=== PATIENT | female | born 1990 | race Caucasian/White ===

== ENCOUNTER 2017-04-12 16:27 | Emergency (ER) | payer MEDICAID ==
[~2017-04-12] VITALS: Ht 162.6 cm; Wt 90.5 kg
[~2017-04-12 16:27] MED LIST: VIST50CA PO
[2017-04-12 16:32] VITALS: BP 149/82; PULSE 115; RESP 22; TEMP 98.8; O2SAT 97
[2017-04-12 17:11] VITALS: BP 125/67; PULSE 107; RESP 20; O2SAT 95
[2017-04-12 17:15] VITALS: O2SAT 96
[2017-04-12] MEDS ORDERED: SODIUM CHLOR 0.9% 1000 ML INJ 1,000 ML IV ONE (17:30)
[2017-04-12] MEDS ORDERED: MORPHINE SULFATE 4 MG/ML INJ IV PUSH ONE (17:30)
[2017-04-12] MEDS ORDERED: SODIUM CHLORIDE 0.9% FLUSH 10 ML FLUSH IVF PRN (17:30)
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
[2017-04-12 18:00] VITALS: BP 118/69; PULSE 101; RESP 20; O2SAT 96
--- NOTE | 2017-04-12 18:00 | RADRPT ---
EXAM DATE/TIME: 04/12/2017 17:23 [facility] COMPARISON: CHEST SINGLE AP, October 15, 2015, 19:33. INDICATIONS : Short of breath. MEDICAL HISTORY : Diabetes mellitus type II. Hypertension Pulmonary embolism SURGICAL HISTORY : Tubal ligation. ENCOUNTER: Initial ACUITY: 1 day PAIN SCORE: 0/10 LOCATION: Bilateral chest FINDINGS: Single AP view of the chest. The lungs are clear. Cardiomediastinal silhouette within normal limits. No evidence of pleural effusion or pneumothorax. CONCLUSION: No acute cardiopulmonary disease identified. Darren Gar MD on April 12, 2017 at 17:58 Board Certified Radiologist. This report was verified electronically.
[2017-04-12 18:18] LABS: AUTOMATED NEUTROPHIL # 4.5 TH/MM3 (1.8-7.7); BASOPHIL % 0.7 % (0.0-2.0); EOSINOPHIL # 0.1 TH/MM3 (0-0.4); EOSINOPHIL % 1.4 % (0.0-4.0); HEMATOCRIT 33.5 % (35.0-46.0); HEMO FLAGS DIFF FINAL; LYMPH % 27.7 % (9.0-44.0); MEAN CELL VOLUME 87.1 FL (80.0-100.0); MEAN CORPUSCULAR HEMOGLOBIN 26.6 PG (27.0-34.0); MEAN CORPUSCULAR HGB CONC 30.5 % (32.0-36.0); MONO % 7.1 % (0.0-8.0); NEUT % 63.1 % (16.0-70.0); PLATELET COUNT 242 TH/MM3 (150-450); RED BLOOD COUNT 3.85 MIL/MM3 (4.00-5.30)
[2017-04-12 18:31] LABS: PROTHROMBIN TIME - PATIENT 10.7 SEC (9.8-11.6)
[2017-04-12 18:45] LABS: ALKALINE PHOSPHATASE 169 U/L (45-117); ALT (GPT) 73 U/L (10-53); ANION GAP 14 MEQ/L (5-15); AST (GOT) 164 U/L (15-37); BICARBONATE 23.4 MEQ/L (21.0-32.0); BLOOD UREA NITROGEN 2 MG/DL (7-18); CHLORIDE 102 MEQ/L (98-107); GLOMERULAR FILTRATION RATE 81 ML/MIN (>89); SODIUM (NA) 139 MEQ/L (136-145); TOTAL BILIRUBIN ADULT 0.7 MG/DL (0.2-1.0)
[2017-04-12 18:49] LABS: POTASSIUM 2.9 MEQ/L (3.5-5.1)
--- NOTE | 2017-04-12 18:51 | RADRPT ---
EXAM DATE/TIME: 04/12/2017 18:17 [facility] COMPARISON: No previous studies available for comparison. INDICATIONS : Left arm pain. MEDICAL HISTORY : Seizures. . Migraines. Head trauma. Numbness. Pulmonary embolism. Diabetes. PTSD. Depressio n. Anxiety. SURGICAL HISTORY : Tubal ligation. section. Multiple brain surgeries. ENCOUNTER: Initial ACUITY: 1 day PAIN SCORE: 2/10 LOCATION: Left arm. FINDINGS: There is spontaneous flow documented in the brachial, basilic, cephalic, axillary, and subclavian vei ns. The vessels are compressible and augmentation response is documented. No filling defects are se en. The flow is phasic with respiration. Direction of flow in the jugular vein is caudal. CONCLUSION: No venous thrombosis of the left upper extremity. Marques Cruz MD on April 12, 2017 at 18:49 Board Certified Radiologist. This report was verified electronically.
[2017-04-12] MEDS ORDERED: POTASSIUM CHLORIDE 20 MEQ CONTROLLED RELEASE TAB PO ONE (19:00)
[2017-04-12] MEDS ORDERED: IOHEXOL 350 MG/ML 10 ML VIAL (for RAD DIAG) IVCONTRAST ONE (19:18)
--- NOTE | 2017-04-12 19:26 | RADRPT ---
EXAM DATE/TIME: 04/12/2017 19:07 [facility] COMPARISON: CT BRAIN W/O CONTRAST, August 07, 2014, 5:44. INDICATIONS : Cephalgia. RADIATION DOSE: 56.35 CTDIvol (mGy) MEDICAL HISTORY : Closed head injury. SURGICAL HISTORY : Craniotomy. ENCOUNTER: Initial ACUITY: 1 day PAIN SCALE: 8/10 LOCATION: Left cranial TECHNIQUE: Multiple contiguous axial images were obtained of the head. Using automated exposure control and adj ustment of the mA and/or kV according to patient size, radiation dose was kept as low as reasonably a chievable to obtain optimal diagnostic quality images. DICOM format image data is available electro nically for review and comparison. FINDINGS: CEREBRUM: The ventricles are normal for age. No evidence of midline shift, mass lesion, hemorrhage or acute in farction. No extra-axial fluid collections are seen. Chronic posttraumatic encephalomalacia again no sunita of the left temporal, parietal and occipital lobes. This is unchanged. Patient has had previous l eft craniotomy. POSTERIOR FOSSA: The cerebellum and brainstem are intact. The 4th ventricle is midline. The cerebellopontine angle i s unremarkable. EXTRACRANIAL: The visualized portion of the orbits is intact. SKULL: No acute skull abnormality demonstrated. Large left craniotomy defect again noted. CONCLUSION: 1. No acute intracranial abnormality. 2. 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 3. Previous left craniotomy. Marques Cruz MD on April 12, 2017 at 19:23 Board Certified Radiologist. This report was verified electronically.
--- NOTE | 2017-04-12 19:31 | RADRPT ---
EXAM DATE/TIME: 04/12/2017 19:10 [facility] COMPARISON: CT PULMONARY ANGIOGRAM, October 15, 2015, 21:24. INDICATIONS : Left arm and chest pain. IV CONTRAST: 70 cc Omnipaque 350 (iohexol) IV RADIATION DOSE: 25.52 CTDIvol (mGy) MEDICAL HISTORY : Diabetes mellitus type 2. Pulmonary embolism. SURGICAL HISTORY : Tubal ligation. ENCOUNTER: Initial ACUITY: 1 day PAIN SCALE: 8/10 LOCATION: Left chest TECHNIQUE: Volumetric scanning of the chest was performed using a pulmonary embolism protocol MIP images were re constructed. Using automated exposure control and adjustment of the mA and/or kV according to patien t size, radiation dose was kept as low as reasonably achievable to obtain optimal diagnostic quality images. DICOM format image data is available electronically for review and comparison. Follow-up recommendations for detected pulmonary nodules are based at a minimum on nodule size and pa tient risk factors according to Fleischner Society Guidelines. FINDINGS: PULMONARY ARTERIES: No filling defects are seen in the pulmonary arteries through the segmental level. LUNGS: Trace atelectasis of the bases, especially the right. PLEURAE: There is no pleural thickening or pleural effusion. MEDIASTINUM: There is good visualization of the great vessels of the middle mediastinum. No evidence of mediastin al or hilar adenopathy/mass. Heart size normal. No perceptible coronary artery calcification. MUSCULOSKELETAL: Within normal limits for patient age. MISCELLANEOUS: Severe fatty infiltration of the liver. It is also probably enlarged. CONCLUSION: 1. No pulmonary embolus. 2. Mild bibasilar atelectasis. 3. Enlarged and severely fatty infiltrated liver. Marques Cruz MD on April 12, 2017 at 19:29 Board Certified Radiologist. This report was verified electronically.
[2017-04-12 19:38] VITALS: BP 127/66; PULSE 88; RESP 16; O2SAT 94
== END 2017-04-12 20:26 | disposition home or self-care (01) ==
LOC: NEPD 16:27
DX: R51 Headache (principal); E11.65 Type 2 diabetes mellitus with hyperglycemia; M79.602 Pain in left arm; E87.6 Hypokalemia; K76.0 Fatty (change of) liver, not elsewhere classified; Z86.711 Personal history of pulmonary embolism; Z72.0 Tobacco use
CPT/HCPCS: 70450; 71010; 71275; 80053; 84703; 85025; 85610; 85730; 93971; 96361; 96374; 99285; J2270; J7030; Q9967

== ENCOUNTER 2017-07-11 12:40 | Inpatient (IN) | payer MEDICAID ==
[2017-07-11] VITALS (16 sets, daily range): BP systolic 99–127; BP diastolic 57–69; PULSE 89–117; RESP 16–45; TEMP 98.6–100.4; O2SAT 91–100
[~2017-07-11] VITALS: Ht 162.6 cm; Wt 108.1 kg
[2017-07-11] MEDS ORDERED: IOHEXOL 350 MG/ML 10 ML VIAL (for RAD DIAG) IVCONTRAST ONE (12:41)
[2017-07-11] MEDS ORDERED: SODIUM CHLOR 0.9% 1000 ML INJ 1,000 ML IV ONE (13:02)
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
[2017-07-11] MEDS ORDERED: SODIUM CHLOR 0.9% 250 ML INJ 250 ML IV ONE ×4 (13:15→23:45)
[2017-07-11] MEDS ORDERED: SODIUM CHLORIDE 0.9% FLUSH 10 ML FLUSH IVF PRN (13:15)
[2017-07-11 13:46] LABS: AUTOMATED NEUTROPHIL # 12.6 TH/MM3 (1.8-7.7); BASOPHIL % 0.1 % (0.0-2.0); EOSINOPHIL % 0.2 % (0.0-4.0); LYMPH % 12.3 % (9.0-44.0); LYMPHOCYTE # 1.9 TH/MM3 (1.0-4.8); MEAN CELL VOLUME 90.4 FL (80.0-100.0); MEAN CORPUSCULAR HEMOGLOBIN 27.4 PG (27.0-34.0); MEAN CORPUSCULAR HGB CONC 30.4 % (32.0-36.0); MEAN PLATELET VOLUME 8.5 FL (7.0-11.0); MONO % 5.5 % (0.0-8.0); MONOCYTE # 0.9 TH/MM3 (0-0.9); NEUT % 81.9 % (16.0-70.0); PLATELET COUNT 405 TH/MM3 (150-450); RED BLOOD COUNT 1.59 MIL/MM3 (4.00-5.30); RED CELL DISTRIBUTION WIDTH 21.7 % (11.6-17.2); WHITE BLOOD COUNT 15.4 TH/MM3 (4.0-11.0)
--- NOTE | 2017-07-11 13:47 | RADRPT ---
EXAM DATE/TIME: 07/11/2017 13:35 [facility] COMPARISON: CHEST SINGLE AP, April 12, 2017, 17:23. INDICATIONS : Weakness for several days. MEDICAL HISTORY : None. SURGICAL HISTORY : None. ENCOUNTER: Initial ACUITY: 3 days PAIN SCORE: 0/10 LOCATION: Bilateral chest FINDINGS: A single view of the chest demonstrates the lungs to be symmetrically aerated without evidence of mas s, infiltrate or effusion. There is mild atelectasis in both lung bases. The cardiomediastinal contou rs are unremarkable. Osseous structures are intact. CONCLUSION: Mild atelectasis in the lung bases. Anthony Bolton MD on July 11, 2017 at 13:45 Board Certified Radiologist. This report was verified electronically.
[2017-07-11 13:50] LABS: HEMATOCRIT 14.4 % (35.0-46.0); HEMOGLOBIN 4.4 GM/DL (11.6-15.3)
[2017-07-11 13:55] LABS: INTERNATIONAL NORMALIZED RATIO 1.1 RATIO; PROTHROMBIN TIME - PATIENT 11.5 SEC (9.8-11.6)
[2017-07-11 14:11] LABS: ALBUMIN 2.6 GM/DL (3.4-5.0); ALKALINE PHOSPHATASE 192 U/L (45-117); ALT (GPT) 13 U/L (10-53); AST (GOT) 42 U/L (15-37); BICARBONATE 28.9 MEQ/L (21.0-32.0); BLOOD UREA NITROGEN 5 MG/DL (7-18); CALCIUM 7.9 MG/DL (8.5-10.1); CHLORIDE 93 MEQ/L (98-107); CREATININE 0.73 MG/DL (0.50-1.00); GLOMERULAR FILTRATION RATE 96 ML/MIN (>89); GLUCOSE,RANDOM 158 MG/DL (74-106); SODIUM (NA) 135 MEQ/L (136-145); TOTAL BILIRUBIN ADULT 4.9 MG/DL (0.2-1.0); TOTAL PROTEIN 7.9 GM/DL (6.4-8.2); TROPONIN I LESS THAN 0.02 NG/ML (0.02-0.05)
[2017-07-11] MEDS ORDERED: POTASSIUM CHLOR 20 MEQ PREMIX 100 ML IV ONE (14:30)
--- NOTE | 2017-07-11 15:03 | RADRPT ---
EXAM DATE/TIME: 07/11/2017 14:24 [facility] COMPARISON: CT BRAIN W/O CONTRAST, April 12, 2017, 19:07. INDICATIONS : Syncopal episode RADIATION DOSE: 56.37 CTDIvol (mGy) MEDICAL HISTORY : Seizures. Diabetes,pulmonary embolism SURGICAL HISTORY : Tubal ligation. Traumatic brain injury ENCOUNTER: Initial ACUITY: 1 day PAIN SCALE: 6/10 LOCATION: cranial TECHNIQUE: Multiple contiguous axial images were obtained of the head. Using automated exposure control and adj ustment of the mA and/or kV according to patient size, radiation dose was kept as low as reasonably a chievable to obtain optimal diagnostic quality images. DICOM format image data is available electro nically for review and comparison. FINDINGS: CEREBRUM: Appearance of the brain is stable when compared to the most recent study. There is focal encephalomal acia in the left temporal and occipital lobes which are unchanged. There are no findings characterist ic of an acute infarct, hemorrhage or mass. Large left frontal parietal craniotomy defect is again no sunita. CSF spaces are stable. POSTERIOR FOSSA: The cerebellum and brainstem are intact. The 4th ventricle is midline. The cerebellopontine angle i s unremarkable. EXTRACRANIAL: The visualized portion of the orbits is intact. SKULL: The calvaria is intact. No evidence of skull fracture. CONCLUSION: 1. Stable CT scan of the brain without evidence of acute infarct, hemorrhage, mass or edema. 2. Left temporal and occipital encephalomalacia; unchanged. 3. Left-sided craniotomy defect again noted. Ruddy Jose MD on July 11, 2017 at 14:55 Board Certified Radiologist. This report was verified electronically.
--- NOTE | 2017-07-11 15:14 | RADRPT ---
EXAM DATE/TIME: 07/11/2017 14:36 [place] COMPARISON: CT PULMONARY ANGIOGRAM, April 12, 2017, 19:10. INDICATIONS : Enlarge liver,mid abdomen pain IV CONTRAST: 70 cc Omnipaque 350 (iohexol) IV ORAL CONTRAST: No oral contrast ingested. RADIATION DOSE: 16.39 CTDIvol (mGy) MEDICAL HISTORY : Seizures. Diabetes,history of pulmonary embolism,traumatic brain injury SURGICAL HISTORY : Tubal ligation. ENCOUNTER: Initial ACUITY: 1 day PAIN SCALE: 5/10 LOCATION: Abdomen TECHNIQUE: Volumetric scanning of the abdomen and pelvis was performed. Using automated exposure control and ad justment of the mA and/or kV according to patient size, radiation dose was kept as low as reasonably achievable to obtain optimal diagnostic quality images. DICOM format image data is available electro nically for review and comparison. FINDINGS: LOWER LUNGS: Bibasilar linear and mild groundglass opacities. LIVER: Prominence diffusely decreased hepatic density with enlarged liver measuring up to 28 cm. No signific ant focal mass or intrahepatic ductal dilatation. Gallbladder is unremarkable by CT. SPLEEN: Spleen is slightly prominent measuring up to 14.5 cm in length. PANCREAS: Within normal limits. KIDNEYS: Normal in size and shape. There is no mass, stone or hydronephrosis. ADRENAL GLANDS: Within normal limits. VASCULAR: There is no aortic aneurysm. BOWEL/MESENTERY: The stomach, small bowel, and colon demonstrate no acute abnormality. Appendix is visualized and norm al in appearance. There is no free intraperitoneal air or fluid. ABDOMINAL WALL: Small fat containing periumbilical anterior abdominal wall hernia. RETROPERITONEUM: There is no lymphadenopathy. BLADDER: No wall thickening or mass. REPRODUCTIVE: Slightly prominent left ovary likely due to ovarian cysts. INGUINAL: There is no lymphadenopathy or hernia. MUSCULOSKELETAL: Within normal limits for patient age. CONCLUSION: 1. Prominent diffusely decreased hepatic density and hepatomegaly with liver measuring up to 28 cm. F indings are consistent with severe hepatic steatosis or medical liver disease. 2. Mild splenomegaly with spleen measuring up to 14.5 cm. 3. No acute abnormality in the abdomen or pelvis. 4. Normal appendix. 5. Small fat containing periumbilical anterior abdominal wall hernia. 6. Slightly prominent left ovary likely due to ovarian cysts. This is within normal limits for patien t's stated age. Ultrasound examination may be performed if there is significant clinical concern. Myron Mckeon MD on July 11, 2017 at 15:06 Board Certified Radiologist. This report was verified electronically.
[2017-07-11 15:45] LABS: MAGNESIUM 1.5 MG/DL (1.5-2.5); PHOSPHORUS 1.4 MG/DL (2.5-4.9)
[2017-07-11] MEDS ORDERED: NS + KCL 20 MEQ INJ 1,000 ML IV SCH (15:47)
[2017-07-11] MEDS ORDERED: MISCELLANEOUS NURSING INFORMATION XX SCH (16:00)
[2017-07-11] MEDS ORDERED: SODIUM CHLORIDE 0.9% FLUSH 10 ML FLUSH IV FLUSH PRN (16:00)
[2017-07-11] MEDS ORDERED: BISACODYL 10 MG SUPP RECTAL PRN (16:00)
[2017-07-11] MEDS ORDERED: RESP: ALBUTEROL 2.5 MG/IPRATROPIUM 0.5 MG NEB (PRN) INH (16:00)
[2017-07-11] MEDS ORDERED: SENNOSIDES 8.6 MG TAB PO PRN (16:00)
[2017-07-11] MEDS ORDERED: POTASSIUM CHLORIDE 25 MEQ EFFERVESCENT TAB PO ONE ×2 (16:00→23:45)
[2017-07-11] MEDS ORDERED: MAGNESIUM HYDROXIDE SUSP 30 ML CUP PO PRN (16:00)
[2017-07-11] MEDS ORDERED: CHLORHEXIDINE GLUCONATE 2 % 1 PACK (2 CLOTHS) TOP PRN (16:00)
[2017-07-11] MEDS ORDERED: LACTULOSE SYRUP 20 GM/30 ML CUP PO PRN (16:00)
[2017-07-11] MEDS ORDERED: FLUMAZENIL 0.5 MG/5 ML VIAL IV PUSH PRN (16:15)
[2017-07-11] MEDS ORDERED: LORazepam 2 MG/ML VIAL IV PUSH PRN ×4 (16:15→16:30)
[2017-07-11] MEDS ORDERED: LORazepam 1 MG TAB PO PRN (16:15)
[2017-07-11] MEDS ORDERED: cloNIDine HCL 0.1 MG TAB PO PRN (16:30)
[2017-07-11 16:50] LABS: BACTERIA, URINE RARE /hpf; BLOOD, URINE NEG (NEG); GLUCOSE,URINE NEG (NEG); KETONE, URINE NEG (NEG); NITRITE,URINE NEG (NEG); PH, URINE 6.5 (5.0-8.5); SQUAMOUS EPITHELIAL CELL URINE <1 /hpf (0-5); URINE COLOR YELLOW (YELLW/STRAW); URINE LEUKOCYTE ESTERASE MOD (NEG)
[2017-07-11] MEDS: ONDANSETRON HCL 4 MG/2 ML VIAL IV PUSH PRN ×2 (16:50→19:16)
[2017-07-11 16:51] LABS: BILIRUBIN, URINE NEG (NEG)
[2017-07-11] MEDS ORDERED: CALCIUM GLUCONATE INJ 2 GM in DEXTROSE 5% IN WATER 100ML INJ 100 ML IV ONE ×2 (17:00)
[2017-07-11] MEDS ORDERED: TRANEXAMIC ACID INJ 1,150 MG in SODIUM CHLORIDE 0.9% INJ 100 ML IV SCH (17:00)
[2017-07-11] MEDS ORDERED: PHYTONADIONE 5 MG/SWFI 5 ML ORAL SYR PO ONE (17:00)
[2017-07-11] MEDS ORDERED: HALOPERIDOL LACTATE 5 MG/ML AMP IM PRN (17:00)
--- NOTE | 2017-07-11 17:47 | HHI.HP ---
HPI Service Critical Care Medicine Primary Care Physician Unknown Admission Diagnosis Syncope, Hypovolemia, Severe Anemia, Liver disease. Diagnosis: Chief Complaint: Generalized weakness, syncope, and menstrual blood loss Travel History International Travel<30 Days: No Contact w/Intl Traveler <30 Da: No Traveled to Known Affected Are: No History of Present Illness History of Present Illness HPI 27-year-old female who presented to the ER with history of vagina bleeding from her menstrual cycle going on for about 2 weeks and progressive weakness and dizziness for the last 3 days. She had a syncopal episode while in the waiting area. She denied any abdominal pain. Patient was evaluated in the ER and was found to be severely anemic with hemoglobin of 4.4 and was tachycardic with heart rate in the 120s. She received fluid boluses and was ordered 2 units PRBCs in the ER which were initiated. CT abdomen pelvis done in the ER reveals an enlarged liver and spleen. Patient reportedly drinks at least half a bottle of vodka every day for many years. Her last drink was this morning. Patient also has a history of traumatic brain injury and has had a craniotomy before as well as a history of blood clot in her lungs previously. Patient was accepted for admission by critical care medicine service. I evaluated the patient while she was in the ER. At the time of my evaluation patient appeared to be resting in the ER stretcher and had an episode of nausea and vomiting however was otherwise not in any respiratory distress and denied any chest pain palpitations fevers or chills she did admit to having rectal bleeding with straining off and on for a while. She denied any melena or hematemesis. She denies any previous history of liver disease or bleeding issues. She has not seen a physician for at least 2 years. PFSH Past Medical History Asthma: No Anxiety: Yes Depression: Yes Cancer: No Cardiovascular Problems: No Chest Pain: Yes Cerebrovascular Accident: No Diabetes: Yes Diminished Hearing: No Endocrine: No Genitourinary: No Headaches: Yes Hepatitis: No Hiatal Hernia: No Immune Disorder: No Implanted Vascular Access Dvce: Yes (PICC LINE AT ONE TIME IN LEFT ARM) Musculoskeletal: No Neurologic: Yes (migraines) Psychiatric: Yes (ANXIETY; PANIC ATTACKS; DOES NOT LIKE TO BE ALONE SINCE THE VEHICLE TRAUMA) Reproductive: No Respiratory: Yes (hx pulmonary embolism) Integumentary: Yes Immunizations Current: Yes Migraines: Yes Seizures: Yes Thyroid Disease: No : 2 Para: 2 Tubal Ligation: Yes Past Surgical History Abdominal Surgery: No AICD: No Body Medical Devices: prosthetic bone flap Cardiac Surgery: No Section: Yes Ear Surgery: No Endocrine Surgery: No Eye Surgery: No Gynecologic Surgery: Yes (c sections x 2) Joint Replacement: No Neurologic Surgery: Yes (5 brain surgeries) Oral Surgery: No Pacemaker: No Thoracic Surgery: No Other Surgery: Yes (CRANIOTOMY 2008/ PLATE REMOVED 2013) Social History Alcohol Use: Yes (SOCIALLY) Tobacco Use: Yes (3/4PPD) Substance Use: No Allergies-Medications (Allergen,Severity, Reaction): Coded Allergies: No Known Allergies (Unverified , 04/12/17) Reported Meds & Prescriptions Reported Meds & Active Scripts Active No Active Prescriptions or Reported Medications Review of Systems Except as stated in HPI: all other systems reviewed are Neg Review of Systems ROS per HPI Physical Exam Vital Signs Vital Signs Date Time Temp Pulse Resp B/P (MAP) Pulse Ox O2 Delivery O2 Flow Rate FiO2 07/11/17 17:23 07/11/17 16:45 100.0 100 27 124/65 97 07/11/17 16:32 100.2 102 16 122/57 96 07/11/17 15:47 99.9 101 30 112/58 94 07/11/17 15:30 99.9 102 23 115/62 94 07/11/17 15:18 99.6 101 16 118/58 95 07/11/17 14:00 100 32 124/69 (87) 95 Nasal Cannula 2.00 07/11/17 13:15 106 26 117/59 (78) 92 Nasal Cannula 2.00 07/11/17 13:11 95 Nasal Cannula 3.00 07/11/17 13:04 117 20 07/11/17 12:41 99.2 116 20 127/66 (86) 100 Room Air Physical Exam Physical Exam Narrative GENERAL: Well-developed, morbidly obese, pale and jaundiced. SKIN: Patient is generally pale, positive scleral icterus and jaundice. HEAD: Atraumatic. Normocephalic. EYES: Pupils equal and round. No scleral icterus. No injection or drainage. ENT: No nasal bleeding or discharge. Mucous membranes pink and moist. NECK: Trachea midline. No JVD. CARDIOVASCULAR: Regular rate and rhythm. No murmur appreciated. RESPIRATORY: No accessory muscle use. Clear to auscultation. Breath sounds equal bilaterally. GASTROINTESTINAL: Abdomen soft, non-tender, nondistended. Liver and spleen palpable, nontender. GENITOURINARY: rectal and vaginal exam by ERP: ER physician found blood in the general guerra and on rectal exam did not notice any blood and stool was negative for occult blood MUSCULOSKELETAL: No obvious deformities. No clubbing. No cyanosis. No edema. NEUROLOGICAL: Awake alert oriented 3, grossly nonfocal Laboratory Laboratory Tests Test 07/11/17 13:07 07/11/17 13:37 07/11/17 16:03 White Blood Count 15.4 Red Blood Count 1.59 Hemoglobin 4.4 Hematocrit 14.4 Mean Corpuscular Volume 90.4 Mean Corpuscular Hemoglobin 27.4 Mean Corpuscular Hemoglobin Concent 30.4 Red Cell Distribution Width 21.7 Platelet Count 405 Mean Platelet Volume 8.5 Neutrophils (%) (Auto) 81.9 Lymphocytes (%) (Auto) 12.3 Monocytes (%) (Auto) 5.5 Eosinophils (%) (Auto) 0.2 Basophils (%) (Auto) 0.1 Neutrophils # (Auto) 12.6 Lymphocytes # (Auto) 1.9 Monocytes # (Auto) 0.9 Eosinophils # (Auto) 0.0 Basophils # (Auto) 0.0 CBC Comment DIFF FINAL Differential Comment Prothrombin Time 11.5 Prothromb Time International Ratio 1.1 Activated Partial Thromboplast Time 23.7 Blood Urea Nitrogen 5 Creatinine 0.73 Random Glucose 158 Total Protein 7.9 Albumin 2.6 Calcium Level 7.9 Alkaline Phosphatase 192 Aspartate Amino Transf (AST/SGOT) 42 Alanine Aminotransferase (ALT/SGPT) 13 Total Bilirubin 4.9 Sodium Level 135 Potassium Level 1.8 Chloride Level 93 Carbon Dioxide Level 28.9 Anion Gap 13 Estimat Glomerular Filtration Rate 96 Phosphorus Level 1.4 Magnesium Level 1.5 Troponin I LESS THAN 0.02 Acetaminophen Level LESS THAN 2.0 Ammonia 43 Human Chorionic Gonadotropin, Quant LESS THAN 1 Ethyl Alcohol Level 32 Urine Color YELLOW Urine Turbidity CLEAR Urine pH 6.5 Urine Specific [place] 1.015 Urine Protein TRACE Urine Glucose (UA) NEG Urine Ketones NEG Urine Occult Blood NEG Urine Nitrite NEG Urine Bilirubin NEG Urine Urobilinogen 2.0 Urine Leukocyte Esterase MOD Urine RBC 1 Urine WBC 5 Urine Squamous Epithelial Cells <1 Urine Bacteria RARE Microscopic Urinalysis Comment CULT NOT INDICATED Result Diagram: 07/11/17 1307 07/11/17 1307 Imaging Last Impressions Head CT 07/11/17 0000 Signed Impressions: Service Date/Time: Tuesday, July 11, 2017 14:24 - CONCLUSION: 1. Stable CT scan of the brain without evidence of acute infarct, hemorrhage, mass or edema. 2. Left temporal and occipital encephalomalacia; unchanged. 3. Left- sided craniotomy defect again noted. Ruddy Jose MD Chest X-Ray 07/11/17 0000 Signed Impressions: Service Date/Time: Tuesday, July 11, 2017 13:35 - CONCLUSION: Mild atelectasis in the lung bases. Anthony Bolton MD Abdomen/Pelvis CT 07/11/17 0000 Signed Impressions: Service Date/Time: Tuesday, July 11, 2017 14:36 - CONCLUSION: 1. Prominent diffusely decreased hepatic density and hepatomegaly with liver measuring up to 28 cm. Findings are consistent with severe hepatic steatosis or medical liver disease. 2. Mild splenomegaly with spleen measuring up to 14.5 cm. 3. No acute abnormality in the abdomen or pelvis. 4. Normal appendix. 5. Small fat containing periumbilical anterior abdominal wall hernia. 6. Slightly prominent left ovary likely due to ovarian cysts. This is within normal limits for patient's stated age. Ultrasound examination may be performed if there is significant clinical concern. MD Sudeep Perez VTE Risk Assessment Sudeep VTE Risk Assessment: No/Low Risk (score <= 1) VTE Pharm Contraindication: Hemorrhage Caprini Risk Assessment Model Point Value = 1 Point Value = 2 Point Value = 3 Point Value = 5 Age 41-60 Minor surgery BMI > 25 kg/m2 Swollen legs Varicose veins or History of unexplained or recurrent spontaneous Oral contraceptives or hormone replacement Sepsis (< 1 month) Serious lung disease, including pneumonia (< 1 month) Abnormal pulmonary function Acute myocardial infarction Congestive heart failure (< 1 month) History of inflammatory bowel disease Medical patient at bed rest Age 61-74 Arthroscopic surgery Major open surgery (> 45 min) Laparoscopic surgery (> 45 min) Malignancy Confined to bed (> 72 hours) Immobilizing plaster cast Central venous access Age >= 75 History of VTE Family history of VTE Factor V Leiden Prothrombin [id number] Lupus anticoagulant Anticardiolipin antibodies Elevated serum homocysteine Heparin-induced thrombocytopenia Other congenital or acquired thrombophilia Stroke (< 1 month) Elective arthroplasty Hip, pelvis, or leg fracture Acute spinal cord injury (< 1 month) Prophylaxis Regimen Total Risk Factor Score Risk Level Prophylaxis Regimen 0-1 Low Early ambulation 2 Moderate Order ONE of the following: *Sequential Compression Device (SCD) *Heparin 5000 units SQ BID 3-4 Higher Order ONE of the following medications: *Heparin 5000 units SQ TID *Enoxaparin/Lovenox 40 mg SQ daily (WT < 150 kg, CrCl > 30 mL/min) *Enoxaparin/Lovenox 30 mg SQ daily (WT < 150 kg, CrCl > 10-29 mL/min) *Enoxaparin/Lovenox 30 mg SQ BID (WT < 150 kg, CrCl > 30 mL/min) AND/OR *Sequential Compression Device (SCD) 5 or more Highest Order ONE of the following medications: *Heparin 5000 units SQ TID (Preferred with Epidurals) *Enoxaparin/Lovenox 40 mg SQ daily (WT < 150 kg, CrCl > 30 mL/min) *Enoxaparin/Lovenox 30 mg SQ daily (WT < 150 kg, CrCl > 10-29 mL/min) *Enoxaparin/Lovenox 30 mg SQ BID (WT < 150 kg, CrCl > 30 mL/min) AND *Sequential Compression Device (SCD) Assessment and Plan Assessment and Plan 27-year-old female with: Acute blood loss anemia Syncope Alcohol-induced liver disease Menorrhagia History of rectal bleeding Alcohol abuse Sinus tachycardia secondary to severe anemia Elevated LFTs probably secondary to alcoholic hepatitis Hypokalemia Hypophosphatemia Hypocalcemia Plan: Neuro: Follow neuro status. Librium 5 mg by mouth 3 times a day and Ativan when necessary as well as thiamine folic acid MVI by mouth for impending alcohol withdrawal. Follow CIWA protocol. Cardiovascular: IV hydration, being transfused PRBCs, watch for hypotension. Pulmonary: Supplemental O2, bronchodilators as needed. GI/liver: Nothing by mouth for now. If nausea controlled may initiate clear liquids. GI consulted for elevated LFTs and for further evaluation for need for colonoscopy in view of history of rectal bleeding. /renal: Strict intake output, monitor and replete electrolites, follow BUN/ creatinine. IV hydration. MEDICAL EDUCATION SPECIALIST consulted for menorrhagia. Heme: 3 units PRBCs to be transfused. Follow serial H&H. Vitamin K 5 mg by mouth now. Tranexamic acid 10 mg per KG IV 1 dose. Transfuse to keep hemoglobin above 7 g percent. MEDICAL EDUCATION SPECIALIST: Consulted MEDICAL EDUCATION SPECIALIST for menorrhagia. Endocrine: Watch for hyperglycemia, SSI for glycemic control if needed. Prophylaxis: PPI/SCDs. No subcutaneous heparin in view of severe acute blood loss anemia with risk of rebleeding. Condition critical Time spent on critical care excluding procedures 60 minutes Gage Odom MD Jul 11, 2017 17:47
[2017-07-11] MEDS ORDERED: POTASSIUM PHOSPHATE INJ 30 MMOL in SODIUM CHLOR 0.9% 250 ML INJ 250 ML IV ONE (18:00)
[2017-07-11] MEDS: POTASSIUM CHLOR 20 MEQ PREMIX 100 ML IV SCH ×2 (18:26→22:42)
[2017-07-11] MEDS: SODIUM CHLORIDE 0.9% FLUSH 10 ML FLUSH IV FLUSH SCH (20:45)
[2017-07-11] MEDS: DOCUSATE SODIUM 50 MG/SENNA 8.6 MG TAB PO SCH (20:45)
[2017-07-11] MEDS: FAMOTIDINE 20 MG/2 ML VIAL IV PUSH SCH (20:45)
[2017-07-11 22:59] LABS: HEMATOCRIT 21.3 % (35.0-46.0)
[2017-07-11 23:05] LABS: HEMOGLOBIN 6.9 GM/DL (11.6-15.3)
[2017-07-11 23:19] LABS: BICARBONATE 28.3 MEQ/L (21.0-32.0); CALCIUM 7.4 MG/DL (8.5-10.1); CREATININE 0.55 MG/DL (0.50-1.00)
[2017-07-11 23:25] LABS: INTERNATIONAL NORMALIZED RATIO 1.1 RATIO; PROTHROMBIN TIME - PATIENT 11.4 SEC (9.8-11.6)
[2017-07-11 23:32] LABS: CALCIUM-PROTEIN CORRECTED 7.5 MG/DL (8.5-10.1); TOTAL PROTEIN 6.9 GM/DL (6.4-8.2)
[2017-07-12] VITALS (14 sets, daily range): BP systolic 115–146; BP diastolic 72–95; PULSE 85–107; RESP 18–39; TEMP 98.1–100.6; O2SAT 89–99
--- NOTE | 2017-07-12 02:03 | PD.CONS ---
HPI Chief Complaint TEST BAKER Consult for Severe anemia secondary to Abnormal uterine Bleeding. Date Seen: Jul 12, 2017 Time Seen: 02:00 Travel History International Travel<30 Days: No Contact w/Intl Traveler<30Days: No Known Affected Area: No History of Present Illness HPI Pt is a 27 yo P2 female who presented to ER yesterday with c/o increasing fatigue for 2 weeks and dizziness for 3 days. pt had a syncopal episode in ER waiting area, and was noted to have a Hg of 4.4g /dl. She was noted to be tachycardic with HR in the 120s. Pt states that her periods are usually regular and she bleeds for 2-5 days without heavy flow. Pt has had tubal ligation. Pt does not remember last PAP. Past medical history is significant for pulmonary embolism She is a 1/2 PPD smoker, and has a h/o alcohol abuse admitting to a 1/2 bottle of Vodka daily for several years. She has a h/o traumatic brain injury s/p craniotomy Pt states that she has occasional melena stools, but no other source of bleeding. She denies easy bruising. History Past Medical History Narrative Medical Anxiety disorder h/o traumatic Brain injury Morbid Obesity H/O PULMONARY EMBOLISM Obstetric History Obstetric History C Sections x 2 s/p tubal ligation Past Surgical History Narrative Surgical C sections x 2 Craniotomy 2008, Plate removed 2013. Prosthetic bone flap TUBAL LIGATION Social History Alcohol Use: Yes Tobacco Use: Yes (3/4 PPD) Substance Abuse: No Allergies-Medications (Allergen,Severity, Reaction): Coded Allergies: No Known Allergies (Unverified , 04/12/17) Home Meds No Active Prescriptions or Reported Meds Review of Systems Except as stated in HPI: all other systems reviewed are Neg Physical Exam Exam Limitations: Altered Mental Status (Pt has been receiving intermittent Ativan to manage her withdrawal.) Vital Signs Date Time Temp Pulse Resp B/P (MAP) Pulse Ox O2 Delivery O2 Flow Rate FiO2 07/12/17 00:00 91 07/12/17 00:00 98.6 91 39 123/81 (95) 93 07/11/17 22:00 89 07/11/17 20:00 89 07/11/17 20:00 98.6 89 45 99/62 (74) 97 07/11/17 19:58 100 Nasal Cannula 4.00 12/27/17 19:00 97 Nasal Cannula 4.00 Humidified 07/11/17 18:46 97 Nasal Cannula 4.00 Humidified 07/11/17 18:00 92 07/11/17 17:35 99.5 96 24 121/59 91 07/11/17 17:23 07/11/17 16:45 100.0 100 27 124/65 97 07/11/17 16:32 100.2 102 16 122/57 96 07/11/17 16:00 100.4 101 28 121/59 (79) 91 07/11/17 15:47 99.9 101 30 112/58 94 07/11/17 15:30 99.9 102 23 115/62 94 07/11/17 15:18 99.6 101 16 118/58 95 07/11/17 14:00 100 32 124/69 (87) 95 Nasal Cannula 2.00 07/11/17 13:15 106 26 117/59 (78) 92 Nasal Cannula 2.00 07/11/17 13:11 95 Nasal Cannula 3.00 07/11/17 13:04 117 20 07/11/17 12:41 99.2 116 20 127/66 (86) 100 Room Air Narrative GENERAL: Well-nourished, well-developed patient. SKIN: Warm and dry. HEAD: Normocephalic and atraumatic. EYES: No scleral icterus. No injection or drainage. ENT: No nasal drainage noted. Mucous membranes pink. Airway patent. NECK: Supple, trachea midline. No JVD. CARDIOVASCULAR: Regular rate and rhythm without murmurs, gallops, or rubs. RESPIRATORY: Breath sounds equal bilaterally. No accessory muscle use. BREASTS: Bilateral exam showed no masses , no retractions, no nipple discharge. ABDOMEN/GI: Abdomen soft, non-tender, bowel sounds present, no rebound, no guarding obese abdomen with palpable liver No abdominal tenderness GENITOURINARY: External Genitalia: intact and normal in appearance BUS glands: [wnl] No vaginal bleeding noted. Vaginal exam deferred. EXTREMITIES: No cyanosis or edema. BACK: Nontender without obvious deformity. No CVA tenderness. NEUROLOGICAL: Awake and alert. Motor and sensory grossly within normal limits. Five out of 5 muscle strength in all muscle groups. Normal speech. Data Data Vital Signs Reviewed: Yes Orders Orders Electrocardiogram (07/11/17 13:02) Ed Urine Pregnancytest Poc (07/11/17 13:02) Complete Blood Count With Diff (07/11/17 13:02) Comprehensive Metabolic Panel (07/11/17 13:02) Troponin I (07/11/17 13:02) Act Partial Throm Time (Ptt) (07/11/17 13:02) Prothrombin Time / Inr (Pt) (07/11/17 13:02) Urinalysis - C+S If Indicated (07/11/17 13:02) Ecg Monitoring (07/11/17 13:02) Iv Access Insert/Monitor (07/11/17 13:02) Oximetry (07/11/17 13:02) Sodium Chloride 0.9% Flush (Ns Flush) (07/11/17 13:15) Sodium Chlor 0.9% 1000 Ml Inj (Ns 1000 M (07/11/17 13:02) Type And Screen (07/11/17 13:02) Beta Hcg (Quant/Titer) (07/11/17 13:08) Sodium Chlor 0.9% 250 Ml Inj (Ns 250 Ml (07/11/17 13:15) Ed Poc Ultrasound (07/11/17 ) Alcohol (Ethanol) (07/11/17 13:17) Ammonia (07/11/17 13:17) Red Blood Cells (Rbc) (07/11/17 13:26) Blood Product Administration (07/11/17 13:26) Sodium Chlor 0.9% 250 Ml Inj (Ns 250 Ml (07/11/17 13:30) Ct Brain W/O Iv Contrast(Rout) (07/11/17 ) Chest, Single Ap (07/11/17 ) Tylenol (Acetaminophen) (07/11/17 14:02) Potassium Chlor 20 Meq Premix (Kcl 20 Me (07/11/17 14:30) Magnesium (Mg) (07/11/17 14:23) Phosphorus (Po4) (07/11/17 14:23) Ct Abd/Pel W Iv Contrast(Rout) (07/11/17 ) Iohexol 350 Inj (Omnipaque 350 Inj) (07/11/17 12:41) Admit Order (Ed Use Only) (07/11/17 ) Potassium Chloride Eff (K-Lyte Cl Eff) (07/11/17 16:00) Potassium Chlor 20 Meq Premix (Kcl 20 Me (07/11/17 16:00) Admit To Inpatient (07/11/17 ) Code Status (07/11/17 15:47) Vital Signs (Adult) ANTELMO.Q1H (07/11/17 15:47) Activity Bed Rest (07/11/17 15:47) Elevate Head Of Bed (07/11/17 15:47) Bedside Glucose ANTELMO.BGM (07/11/17 15:47) Urinary Catheter Management ANTELMO.Q8H (07/11/17 16:00) Ns + Kcl 20 Meq Inj (Ns + Kcl 20 Meq Inj (07/11/17 15:47) Sodium Chloride 0.9% Flush (Ns Flush) (07/11/17 16:00) Sodium Chloride 0.9% Flush (Ns Flush) (07/11/17 21:00) Famotidine Inj (Pepcid Inj) (07/11/17 21:00) Ondansetron Inj (Zofran Inj) (07/11/17 16:00) Albuterol-Ipratropium Neb (Duoneb Neb) (07/11/17 16:00) Complete Blood Count With Diff (07/12/17 04:00) Comprehensive Metabolic Panel (07/12/17 04:00) Magnesium (Mg) (07/12/17 04:00) Phosphorus (Po4) (07/12/17 04:00) Hgb & Hct (07/12/17 00:00) Resp Oxygen [place] C [place] 1-4 L (07/11/17 ) Consult Gastroenterology (07/11/17 ) Scheduling Manager / Telemetry ANTELMO.Q8H (07/11/17 15:47) Scd Bilateral/Knee High ANTELMO.BID (07/11/17 15:47) ^ Initiate Protocol (07/11/17 15:47) Instruction (07/11/17 15:47) [facility] Nursing Information (07/11/17 16:00) Chlorhexidine 2% Cloth (Chlorhexidine 2% (07/12/17 04:00) Chlorhexidine 2% Cloth (Chlorhexidine 2% (07/11/17 16:00) Mrsa Pcr Surveillance (07/11/17 15:47) Docusate Sodium-Senna (Henrietta-Colace) (07/11/17 21:00) Magnesium Hydroxide Liq (Milk Of Magnesi (07/11/17 16:00) Sennosides (Senokot) (07/11/17 16:00) Bisacodyl Supp (Dulcolax Supp) (07/11/17 16:00) Lactulose Liq (Lactulose Liq) (07/11/17 16:00) Inpatient Certification (07/11/17 ) Consult Gynecology (07/11/17 ) (Hub Use Only)[facility] Cons/Ref (07/11/17 ) Tranexamic Acid Inj (Cyklokapron Inj) (07/11/17 17:00) Calcium Gluconate Inj (Calcium Gluconate (07/11/17 17:00) (Hub Use Only)[facility] Cons/Ref (07/11/17 ) Fibrinogen (07/11/17 18:00) Prothrombin Time / Inr (Pt) (07/11/17 18:00) Act Partial Throm Time (Ptt) (07/11/17 18:00) Lactic Acid (07/11/17 18:00) Basic Metabolic Panel (Bmp) (07/11/17 23:30) Neuro Checks Q4H (07/11/17 16:03) Alcohol Withdrawal Asmt-Ciwa Q4HX18 (07/11/17 16:03) ^ Seizure Precautions (07/11/17 16:03) Diet Npo (07/11/17 Dinner) Folic Acid (Folate) (07/12/17 09:00) Thiamine (Vit B1) (Vitamin B1) (07/12/17 09:00) Multivitamins-Minerals Therap (Theragran (07/12/17 09:00) Clonidine (Catapres) (07/11/17 16:30) Drug Screen, Random Urine (07/11/17 16:03) Flumazenil Inj (Romazicon Inj) (07/11/17 16:15) Lorazepam (Ativan) (07/11/17 16:15) Lorazepam Inj (Ativan Inj) (07/11/17 16:15) Lorazepam (Ativan) (07/11/17 16:15) Lorazepam Inj (Ativan Inj) (07/11/17 16:15) Lorazepam Inj (Ativan Inj) (07/11/17 16:30) Lorazepam Inj (Ativan Inj) (07/11/17 16:15) Haloperidol Inj (Haldol Inj) (07/11/17 17:00) Specimen To Be Collected PRN (07/11/17 16:03) Blood Product Administration .UPON TRANSFUSION (07/11/17 16:07) Instruction (07/11/17 16:07) Sodium Chlor 0.9% 250 Ml Inj (Ns 250 Ml (07/11/17 16:30) Phytonadione Liq (Mephyton Liq) (07/11/17 17:00) (Hub Use Only)Inp Phy Cons/Ref (07/11/17 ) Chlordiazepoxide (Librium) (07/11/17 18:00) Potassium Phosphate Inj (Potassium Phosp (07/11/17 18:00) Sleeve, Knee Sequential Marcus Pr (07/11/17 22:51) Protein Corrected Calcium(Pcc) (07/11/17 22:53) Potassium Chloride Eff (K-Lyte Cl Eff) (07/11/17 23:45) Red Blood Cells (Rbc) (07/11/17 23:40) Blood Product Administration .UPON TRANSFUSION (07/11/17 23:40) Sodium Chlor 0.9% 250 Ml Inj (Ns 250 Ml (07/11/17 23:45) Labs Laboratory Tests Test 07/11/17 13:07 07/11/17 13:37 07/11/17 16:03 07/11/17 17:55 White Blood Count 15.4 Red Blood Count 1.59 Hemoglobin 4.4 Hematocrit 14.4 Mean Corpuscular Volume 90.4 Mean Corpuscular Hemoglobin 27.4 Mean Corpuscular Hemoglobin Concent 30.4 Red Cell Distribution Width 21.7 Platelet Count 405 Mean Platelet Volume 8.5 Neutrophils (%) (Auto) 81.9 Lymphocytes (%) (Auto) 12.3 Monocytes (%) (Auto) 5.5 Eosinophils (%) (Auto) 0.2 Basophils (%) (Auto) 0.1 Neutrophils # (Auto) 12.6 Lymphocytes # (Auto) 1.9 Monocytes # (Auto) 0.9 Eosinophils # (Auto) 0.0 Basophils # (Auto) 0.0 CBC Comment DIFF FINAL Differential Comment Prothrombin Time 11.5 Prothromb Time International Ratio 1.1 Activated Partial Thromboplast Time 23.7 Blood Urea Nitrogen 5 Creatinine 0.73 Random Glucose 158 Total Protein 7.9 Albumin 2.6 Calcium Level 7.9 Alkaline Phosphatase 192 Aspartate Amino Transf (AST/SGOT) 42 Alanine Aminotransferase (ALT/SGPT) 13 Total Bilirubin 4.9 Sodium Level 135 Potassium Level 1.8 Chloride Level 93 Carbon Dioxide Level 28.9 Anion Gap 13 Estimat Glomerular Filtration Rate 96 Phosphorus Level 1.4 Magnesium Level 1.5 Troponin I LESS THAN 0.02 Acetaminophen Level LESS THAN 2.0 Ammonia 43 Human Chorionic Gonadotropin, Quant LESS THAN 1 Ethyl Alcohol Level 32 Urine Color YELLOW Urine Turbidity CLEAR Urine pH 6.5 Urine Specific [place] 1.015 Urine Protein TRACE Urine Glucose (UA) NEG Urine Ketones NEG Urine Occult Blood NEG Urine Nitrite NEG Urine Bilirubin NEG Urine Urobilinogen 2.0 Urine Leukocyte Esterase MOD Urine RBC 1 Urine WBC 5 Urine Squamous Epithelial Cells <1 Urine Bacteria RARE Microscopic Urinalysis Comment CULT NOT INDICATED Urine Opiates Screen NEG Urine Barbiturates Screen NEG Urine Amphetamines Screen NEG Urine Benzodiazepines Screen NEG Urine Cocaine Screen NEG Urine Cannabinoids Screen NEG Nasal Screen MRSA (PCR) MRSA NOT DETECTED Test 07/11/17 22:53 Hemoglobin 6.9 Hematocrit 21.3 Prothrombin Time 11.4 Prothromb Time International Ratio 1.1 Activated Partial Thromboplast Time 23.9 Fibrinogen 424 Blood Urea Nitrogen 6 Creatinine 0.55 Random Glucose 130 Total Protein 6.9 Calcium Level 7.4 Sodium Level 138 Potassium Level 2.4 Chloride Level 101 Carbon Dioxide Level 28.3 Anion Gap 9 Estimat Glomerular Filtration Rate 133 Lactic Acid Level 0.7 Protein Corrected Calcium 7.[address] [facility] Medical Record Reviewed: Yes Plan Pt is a 27yo P2 admitted through ER with symptomatic severe anemia with Hg of 4.4g/dL Pt had syncopal episode in ER. Pt states menses are normally wnl, but current menses has lasted 2 weeks. test is negative. She also admits to intermittent melena stools and has significant hepatomegaly, and GI has been consulted. Pt is receiving 4th unit PRBC. Hg after third unit was 6.9g/dL Pt has received Tranexamic Acid. There is currently NO vaginal bleeding. Pt has a h/o pulmonary embolism and would not be a candidate for Estrogen therapy such as OCPs. Will recommend complete TEST BAKER evaluation as outpatient including PAP screening as outpatient. May benefit from Mirena IUD if bleeding remains a problem residential. Will order pelvic ultrasound to exclude polyps/fibroids. Admitting diagnosis: Syncope, Hypovolemia, Severe Anemia, Liver disease. Condition: Serious Scripts No Active Prescriptions or Reported Meds Car Ramirez MD Jul 12, 2017 2:03 am
[2017-07-12] MEDS: CHLORHEXIDINE GLUCONATE 2 % 1 PACK (2 CLOTHS) TOP SCH (04:00)
[2017-07-12 04:45] LABS: AUTOMATED NEUTROPHIL # 11.9 TH/MM3 (1.8-7.7); BASOPHIL # 0.1 TH/MM3 (0-0.2); EOSINOPHIL # 0.1 TH/MM3 (0-0.4); EOSINOPHIL % 0.4 % (0.0-4.0); HEMATOCRIT 25.8 % (35.0-46.0); HEMOGLOBIN 8.4 GM/DL (11.6-15.3); LYMPH % 10.4 % (9.0-44.0); LYMPHOCYTE # 1.5 TH/MM3 (1.0-4.8); MEAN CELL VOLUME 88.6 FL (80.0-100.0); MEAN CORPUSCULAR HEMOGLOBIN 28.8 PG (27.0-34.0); MEAN CORPUSCULAR HGB CONC 32.5 % (32.0-36.0); MEAN PLATELET VOLUME 8.2 FL (7.0-11.0); MONO % 5.1 % (0.0-8.0); MONOCYTE # 0.7 TH/MM3 (0-0.9); NEUT % 83.1 % (16.0-70.0); PLATELET COUNT 311 TH/MM3 (150-450); RED BLOOD COUNT 2.92 MIL/MM3 (4.00-5.30); RED CELL DISTRIBUTION WIDTH 16.6 % (11.6-17.2); WHITE BLOOD COUNT 14.3 TH/MM3 (4.0-11.0)
[2017-07-12 05:16] LABS: ALBUMIN 2.3 GM/DL (3.4-5.0); BICARBONATE 26.9 MEQ/L (21.0-32.0); CALCIUM 7.3 MG/DL (8.5-10.1); CREATININE 0.65 MG/DL (0.50-1.00); MAGNESIUM 1.5 MG/DL (1.5-2.5); PHOSPHORUS 2.6 MG/DL (2.5-4.9); TOTAL PROTEIN 7.1 GM/DL (6.4-8.2)
[2017-07-12 05:26] LABS: CALCIUM-PROTEIN CORRECTED 7.3 MG/DL (8.5-10.1)
[2017-07-12] MEDS ORDERED: ICU - MAGNESIUM OXIDE 400 MG TAB PO PRN (07:45)
[2017-07-12] MEDS ORDERED: ICU - POTASSIUM CHLORIDE/AQUEOUS SOLN 40 MEQ/100 ML IVPB IV PRN (07:45)
[2017-07-12] MEDS ORDERED: ICU - D/C ICU ELECTROLYTE ORDERS PRN (07:45)
[2017-07-12] MEDS ORDERED: ICU - MAGNESIUM SULFATE 2 GM/NS 100 ML IV PRN ×2 (07:45)
[2017-07-12] MEDS ORDERED: ICU - MAGNESIUM SULFATE 4 GM/NS 100 ML IV PRN ×2 (07:45)
[2017-07-12] MEDS ORDERED: ICU - POTASSIUM PHOSPHATE 30 MMOL/NS 250 ML IV PRN ×2 (07:45)
[2017-07-12] MEDS ORDERED: POTASSIUM CHLORIDE 25 MEQ EFFERVESCENT TAB PO PRN (07:45)
[2017-07-12] MEDS ORDERED: ICU - SODIUM PHOSPHATE 30 MMOL/NS 250 ML IV PRN ×2 (07:45)
[2017-07-12] MEDS ORDERED: ICU - CALL ORDERING PHYSICIAN PRN (07:45)
[2017-07-12] MEDS ORDERED: ICU - POTASSIUM PHOSPHATE MONOBASIC 500 MG TAB PO PRN (07:45)
--- NOTE | 2017-07-12 08:48 | HHI.CCPN ---
Subjective Remarks/Hospital Course Hospital Course: 27-year-old female who presented to the ER with history of vagina bleeding from her menstrual cycle going on for about 2 weeks and progressive weakness and dizziness for the last 3 days. She had a syncopal episode while in the waiting area. She denied any abdominal pain. Patient was evaluated in the ER and was found to be severely anemic with hemoglobin of 4.4 and was tachycardic with heart rate in the 120s. She received fluid boluses and was ordered 2 units PRBCs in the ER which were initiated. CT abdomen pelvis done in the ER reveals an enlarged liver and spleen. Patient reportedly drinks at least half a bottle of vodka every day for many years. Her last drink was this morning. Patient also has a history of traumatic brain injury and has had a craniotomy before as well as a history of blood clot in her lungs previously. Patient was accepted for admission by critical care medicine service. I evaluated the patient while she was in the ER. At the time of my evaluation patient appeared to be resting in the ER stretcher and had an episode of nausea and vomiting however was otherwise not in any respiratory distress and denied any chest pain palpitations fevers or chills she did admit to having rectal bleeding with straining off and on for a while. She denied any melena or hematemesis. She denies any previous history of liver disease or bleeding issues. She has not seen a physician for at least 2 years. Subjective: 07/12: denies abdominal pain or additional bleeding. hgb stable this AM. on 6L o2 by simple mask, but denies SOB or chest pain. ROS negative. Objective Vital Signs Date Time Temp Pulse Resp B/P (MAP) Pulse Ox O2 Delivery O2 Flow Rate FiO2 07/12/17 06:00 94 07/12/17 04:00 98.8 29 137/73 (94) 95 07/12/17 02:13 Simple Mask 6.00 Intake and Output 07/12/17 07/12/17 07/13/17 08:00 16:00 00:00 Intake Total 2320 ml Output Total 800 ml Balance 1520 ml Result Diagram: 07/12/17 0400 07/12/17 0400 Imaging Last Impressions Head CT 07/11/17 0000 Signed Impressions: Service Date/Time: Tuesday, July 11, 2017 14:24 - CONCLUSION: 1. Stable CT scan of the brain without evidence of acute infarct, hemorrhage, mass or edema. 2. Left temporal and occipital encephalomalacia; unchanged. 3. Left- sided craniotomy defect again noted. Ruddy Jose MD Chest X-Ray 07/11/17 0000 Signed Impressions: Service Date/Time: Tuesday, July 11, 2017 13:35 - CONCLUSION: Mild atelectasis in the lung bases. Anthony Bolton MD Abdomen/Pelvis CT 07/11/17 0000 Signed Impressions: Service Date/Time: Tuesday, July 11, 2017 14:36 - CONCLUSION: 1. Prominent diffusely decreased hepatic density and hepatomegaly with liver measuring up to 28 cm. Findings are consistent with severe hepatic steatosis or medical liver disease. 2. Mild splenomegaly with spleen measuring up to 14.5 cm. 3. No acute abnormality in the abdomen or pelvis. 4. Normal appendix. 5. Small fat containing periumbilical anterior abdominal wall hernia. 6. Slightly prominent left ovary likely due to ovarian cysts. This is within normal limits for patient's stated age. Ultrasound examination may be performed if there is significant clinical concern. Myron Mckeon MD Objective Remarks GENERAL: morbidly obese, pale and jaundiced. SKIN: Patient is generally pale, positive scleral icterus and jaundice. HEAD: Atraumatic. Normocephalic. EYES: Pupils equal and round. No scleral icterus. No injection or drainage. ENT: No nasal bleeding or discharge. Mucous membranes pink and moist. NECK: Trachea midline. No JVD. CARDIOVASCULAR: Regular rate and rhythm. sinus by tele. RESPIRATORY: No accessory muscle use. Breath sounds equal bilaterally. on 6L facemask. GASTROINTESTINAL: Abdomen soft, non-tender, nondistended. Liver and spleen palpable, nontender. MUSCULOSKELETAL: No obvious deformities. No clubbing. No cyanosis. No edema. NEUROLOGICAL: Awake alert oriented 3, grossly nonfocal A/P Assessment and Plan 27yF with vaginal bleeding and symptomatic anemia. improving. liver failure is likely chronic and likely secondary to etoh or BAILEY cirrhosis. if she remains stable today, could transfer out of ICU. 27-year-old female with: Acute blood loss anemia Syncope secondary to anemia Alcohol-induced liver disease Menorrhagia History of rectal bleeding Alcohol abuse Sinus tachycardia secondary to severe anemia Elevated LFTs probably secondary to alcoholic hepatitis Hypokalemia Hypophosphatemia Hypocalcemia Plan: Neuro: Follow neuro status. Librium 5 mg by mouth 3 times a day and Ativan when necessary as well as thiamine folic acid MVI by mouth for impending alcohol withdrawal. Follow CIWA protocol. Cardiovascular: saline lock ivf. Pulmonary: Supplemental O2, bronchodilators as needed. PT consult GI/liver: advance diet to clears. GI consulted for elevated LFTs and for further evaluation for need for colonoscopy in view of history of rectal bleeding. /renal: Strict intake output, monitor and replete electrolites, follow BUN/ creatinine. [employer]IN CLE[employer]ER consulted for menorrhagia. Heme: s/p 4 units prbc 07/11. hgb stable. continue to trend. Transfuse to keep hemoglobin above 7 BASIN CLEANER: Consulted BASIN CLEANER for menorrhagia. Endocrine: Watch for hyperglycemia, SSI for glycemic control if needed. Prophylaxis: pepcid/SCDs. No subcutaneous heparin in view of severe acute blood loss anemia with risk of rebleeding. Aureliano Timmons MD Jul 12, 2017 08:48
[2017-07-12] MEDS: ONDANSETRON HCL 4 MG/2 ML VIAL IV PUSH PRN (08:49)
[2017-07-12] MEDS: FAMOTIDINE 20 MG/2 ML VIAL IV PUSH SCH ×2 (08:50→20:20)
[2017-07-12] MEDS: FOLIC ACID 1 MG TAB PO SCH (08:54)
[2017-07-12] MEDS: MULTIVITAMINS/MINERALS THERAPEUTIC TAB PO SCH (08:54)
[2017-07-12] MEDS: SODIUM CHLORIDE 0.9% FLUSH 10 ML FLUSH IV FLUSH SCH ×2 (08:54→20:20)
[2017-07-12] MEDS: THIAMINE HCL 100 MG TAB PO SCH (08:54)
[2017-07-12] MEDS: DOCUSATE SODIUM 50 MG/SENNA 8.6 MG TAB PO SCH ×2 (08:59→20:19)
[2017-07-12] MEDS ORDERED: CALCIUM GLUCONATE INJ 3 GM in SODIUM CHLORIDE 0.9% INJ 100 ML IV ONE (10:00)
[2017-07-12] MEDS: ICU - POTASSIUM CHLORIDE/AQUEOUS SOLN 20 MEQ/100 ML IVPB IV PRN ×4 (10:12→16:45)
--- NOTE | 2017-07-12 10:34 | PD.CONS ---
HPI History of Present Illness This is a 27 year old female with hx heavy alcohol consumption, TBI s/p craniotomy and plate removal, who presented with severe anemia, dizziness, jaundice. She said for the last few weeks she has "not been feeling well" and "I'm an alcoholic." She has had a heavier and longer than usual menstrual period. She admits to seeing bright red blood on wipe in the last week after BM but denies profuse rectal bleeding, n/v, or melanotic stool. She c/o right side abd pain and noticed her urine turned dark a few days ago. Denies any knowledge of hepatitis or liver problems. Drinks 1/2 gallon vodka daily, "for a long time." Never had EGD or colonoscopy. (Pili Tompkins) PFSH Past Medical History TBI ETOH abuse Past Surgical History craniotomy cranial plate removal (Pili Tompkins) Coded Allergies: No Known Allergies (Unverified , 04/12/17) Family History noncontributory Social History drinks 1/2 gallon vodka daily 1ppd denies illicit drugs (Pili Tompkins) Review of Systems Constitutional: DENIES: Fever Endocrine: DENIES: Polydipsia Eyes: DENIES: Blurred vision Ears, nose, mouth, throat: DENIES: Hearing loss Respiratory: COMPLAINS OF: Cough Cardiovascular: DENIES: Chest pain Gastrointestinal: COMPLAINS OF: Abdominal pain, Bloody stools, DENIES: Black stools, Constipation, Diarrhea, Nausea, Vomiting, Hematemesis Genitourinary: DENIES: Hematuria Musculoskeletal: DENIES: Joint Swelling Integumentary: COMPLAINS OF: Jaundice Hematologic/lymphatic: DENIES: Lymphadenopathy Neurologic: DENIES: Abnormal gait Psychiatric: DENIES: Confusion (Pili Tompkins) GI Exam Vitals I&O Vital Signs Date Time Temp Pulse Resp B/P (MAP) Pulse Ox O2 Delivery O2 Flow Rate FiO2 07/12/17 06:00 94 07/12/17 04:00 90 07/12/17 04:00 98.8 92 29 137/73 (94) 95 07/12/17 02:13 96 Simple Mask 6.00 07/12/17 02:00 97 07/12/17 00:00 91 07/12/17 00:00 98.6 91 39 123/81 (95) 93 07/11/17 22:00 89 07/11/17 20:00 89 07/11/17 20:00 98.6 89 45 99/62 (74) 97 07/11/17 19:58 100 Nasal Cannula 4.00 07/11/17 19:00 97 Nasal Cannula 4.00 Humidified 07/11/17 18:46 97 Nasal Cannula 4.00 Humidified 07/11/17 18:00 92 07/11/17 17:35 99.5 96 24 121/59 91 07/11/17 17:23 07/11/17 16:45 100.0 100 27 124/65 97 07/11/17 16:32 100.2 102 16 122/57 96 07/11/17 16:00 100.4 101 28 121/59 (79) 91 07/11/17 15:47 99.9 101 30 112/58 94 07/11/17 15:30 99.9 102 23 115/62 94 07/11/17 15:18 99.6 101 16 118/58 95 07/11/17 14:00 100 32 124/69 (87) 95 Nasal Cannula 2.00 07/11/17 13:15 106 26 117/59 (78) 92 Nasal Cannula 2.00 07/11/17 13:11 95 Nasal Cannula 3.00 07/11/17 13:04 117 20 07/11/17 12:41 99.2 116 20 127/66 (86) 100 Room Air I/O 07/11/17 07/11/17 07/11/17 07/12/17 07/12/17 07/12/17 07:00 15:00 23:00 07:00 15:00 23:00 Intake Total 1702 ml 2450 ml 355 ml Output Total 800 ml Balance 1702 ml 1650 ml 355 ml Intake Oral 240 ml IV Total 432 ml 1165 ml 355 ml Packed Cells 1200 ml 1015 ml Blood Product IV Normal Saline Flush 70 ml 30 ml Output Urine Total 800 ml # Bowel Movements 5 Imaging Last Impressions Head CT 07/11/17 0000 Signed Impressions: Service Date/Time: Tuesday, July 11, 2017 14:24 - CONCLUSION: 1. Stable CT scan of the brain without evidence of acute infarct, hemorrhage, mass or edema. 2. Left temporal and occipital encephalomalacia; unchanged. 3. Left- sided craniotomy defect again noted. Ruddy Jose MD Chest X-Ray 07/11/17 0000 Signed Impressions: Service Date/Time: Tuesday, July 11, 2017 13:35 - CONCLUSION: Mild atelectasis in the lung bases. Anthony Bolton MD Abdomen/Pelvis CT 07/11/17 0000 Signed Impressions: Service Date/Time: Tuesday, July 11, 2017 14:36 - CONCLUSION: 1. Prominent diffusely decreased hepatic density and hepatomegaly with liver measuring up to 28 cm. Findings are consistent with severe hepatic steatosis or medical liver disease. 2. Mild splenomegaly with spleen measuring up to 14.5 cm. 3. No acute abnormality in the abdomen or pelvis. 4. Normal appendix. 5. Small fat containing periumbilical anterior abdominal wall hernia. 6. Slightly prominent left ovary likely due to ovarian cysts. This is within normal limits for patient's stated age. Ultrasound examination may be performed if there is significant clinical concern. Myron Mckeon MD Laboratory Test 07/11/17 13:07 07/11/17 13:37 07/11/17 16:03 07/11/17 17:55 White Blood Count 15.4 TH/MM3 Red Blood Count 1.59 MIL/MM3 Hemoglobin 4.4 GM/DL Hematocrit 14.4 % Mean Corpuscular Volume 90.4 FL Mean Corpuscular Hemoglobin 27.4 PG Mean Corpuscular Hemoglobin Concent 30.4 % Red Cell Distribution Width 21.7 % Platelet Count 405 TH/MM3 Mean Platelet Volume 8.5 FL Neutrophils (%) (Auto) 81.9 % Lymphocytes (%) (Auto) 12.3 % Monocytes (%) (Auto) 5.5 % Eosinophils (%) (Auto) 0.2 % Basophils (%) (Auto) 0.1 % Neutrophils # (Auto) 12.6 TH/MM3 Lymphocytes # (Auto) 1.9 TH/MM3 Monocytes # (Auto) 0.9 TH/MM3 Eosinophils # (Auto) 0.0 TH/MM3 Basophils # (Auto) 0.0 TH/MM3 CBC Comment DIFF FINAL Differential Comment Prothrombin Time 11.5 SEC Prothromb Time International Ratio 1.1 RATIO Activated Partial Thromboplast Time 23.7 SEC Blood Urea Nitrogen 5 MG/DL Creatinine 0.73 MG/DL Random Glucose 158 MG/DL Total Protein 7.9 GM/DL Albumin 2.6 GM/DL Calcium Level 7.9 MG/DL Alkaline Phosphatase 192 U/L Aspartate Amino Transf (AST/SGOT) 42 U/L Alanine Aminotransferase (ALT/SGPT) 13 U/L Total Bilirubin 4.9 MG/DL Sodium Level 135 MEQ/L Potassium Level 1.8 MEQ/L Chloride Level 93 MEQ/L Carbon Dioxide Level 28.9 MEQ/L Anion Gap 13 MEQ/L Estimat Glomerular Filtration Rate 96 ML/MIN Phosphorus Level 1.4 MG/DL Magnesium Level 1.5 MG/DL Troponin I LESS THAN 0.02 NG/ML Acetaminophen Level LESS THAN 2.0 MCG/ML Ammonia 43 MCMOL/L Human Chorionic Gonadotropin, Quant LESS THAN 1 MIU/ML Ethyl Alcohol Level 32 MG/DL Urine Color YELLOW Urine Turbidity CLEAR Urine pH 6.5 Urine Specific [place] 1.015 Urine Protein TRACE mg/dL Urine Glucose (UA) NEG mg/dL Urine Ketones NEG mg/dL Urine Occult Blood NEG Urine Nitrite NEG Urine Bilirubin NEG Urine Urobilinogen 2.0 MG/DL Urine Leukocyte Esterase MOD Urine RBC 1 /hpf Urine WBC 5 /hpf Urine Squamous Epithelial Cells <1 /hpf Urine Bacteria RARE /hpf Microscopic Urinalysis Comment CULT NOT INDICATED Urine Opiates Screen NEG Urine Barbiturates Screen NEG Urine Amphetamines Screen NEG Urine Benzodiazepines Screen NEG Urine Cocaine Screen NEG Urine Cannabinoids Screen NEG Nasal Screen MRSA (PCR) MRSA NOT DETECTED Test 07/11/17 22:53 07/12/17 04:00 Hemoglobin 6.9 GM/DL 8.4 GM/DL Hematocrit 21.3 % 25.8 % Prothrombin Time 11.4 SEC Prothromb Time International Ratio 1.1 RATIO Activated Partial Thromboplast Time 23.9 SEC Fibrinogen 424 mg/dL Blood Urea Nitrogen 6 MG/DL 7 MG/DL Creatinine 0.55 MG/DL 0.65 MG/DL Random Glucose 130 MG/DL 127 MG/DL Total Protein 6.9 GM/DL 7.1 GM/DL Calcium Level 7.4 MG/DL 7.3 MG/DL Sodium Level 138 MEQ/L 139 MEQ/L Potassium Level 2.4 MEQ/L 2.8 MEQ/L Chloride Level 101 MEQ/L 102 MEQ/L Carbon Dioxide Level 28.3 MEQ/L 26.9 MEQ/L Anion Gap 9 MEQ/L 10 MEQ/L Estimat Glomerular Filtration Rate 133 ML/MIN 109 ML/MIN Lactic Acid Level 0.7 mmol/L Protein Corrected Calcium 7.5 MG/DL 7.3 MG/DL White Blood Count 14.3 TH/MM3 Red Blood Count 2.92 MIL/MM3 Mean Corpuscular Volume 88.6 FL Mean Corpuscular Hemoglobin 28.8 PG Mean Corpuscular Hemoglobin Concent 32.5 % Red Cell Distribution Width 16.6 % Platelet Count 311 TH/MM3 Mean Platelet Volume 8.2 FL Neutrophils (%) (Auto) 83.1 % Lymphocytes (%) (Auto) 10.4 % Monocytes (%) (Auto) 5.1 % Eosinophils (%) (Auto) 0.4 % Basophils (%) (Auto) 1.0 % Neutrophils # (Auto) 11.9 TH/MM3 Lymphocytes # (Auto) 1.5 TH/MM3 Monocytes # (Auto) 0.7 TH/MM3 Eosinophils # (Auto) 0.1 TH/MM3 Basophils # (Auto) 0.1 TH/MM3 CBC Comment DIFF FINAL Differential Comment Albumin 2.3 GM/DL Phosphorus Level 2.6 MG/DL Magnesium Level 1.5 MG/DL Alkaline Phosphatase 167 U/L Aspartate Amino Transf (AST/SGOT) 54 U/L Alanine Aminotransferase (ALT/SGPT) 11 U/L Total Bilirubin 8.0 MG/DL Physical Examination HEENT: PERRL; normocephalic; atraumatic; +icterus CHEST: CTA, coughing CARDIAC: Rrr ABDOMEN: Soft, obese, nontender; bowel sounds are present in all four quadrants. EXTREMITIES: No clubbing, cyanosis, or edema. SKIN: Normal; no rash; + mildjaundice. [employer]: No focal deficits; alert and oriented times three. (Pili Tompkins) Assessment and Plan Plan ASSESSMENT - anemia - hgb 4.4 on admission, up to 8.4 after 4x PRBC. normocytic. some BRBPR nothing profuse. no active bleeding at this time - BRBPR - recent hx blood on wipe after BM. - elevated LFTs, jaundice, abnormal imaging - long standing heavy ETOH consumption, likely etoh hepatitis, could have cirrhosis. DF <32. CT showed hepatosplenomegaly, fatty liver vs hepatocellular dz. no significant coagulopathy at this time. low albumin. will get liver w/u hepatitis, autoimmune cause PLAN - EGD/colonoscopy in am - obtain consent - Clear liquids today - NPO after midnight - mg citrate prep - liver w/u - etoh cessation - monitor labs - further recs to follow This pt seen by myself and DR Clark and this note is written on his behalf (Pili Tompkins) Physician Comments Seen and examined, plan as above. EGD and Colonoscopy in AM Further recommendations to follow, pending above findings. (Shay Clark MD) Pili Tompkins Jul 12, 2017 10:34 Shay Clark MD Jul 12, 2017 15:01
[2017-07-12 12:24] LABS: HEMATOCRIT 25.6 % (35.0-46.0); HEMOGLOBIN 8.2 GM/DL (11.6-15.3)
--- NOTE | 2017-07-12 12:50 | RADRPT ---
EXAM DATE/TIME: 07/12/2017 09:52 [facility] COMPARISON: No previous studies available for comparison. INDICATIONS : Pelvic bleeding. MEDICAL HISTORY : Migraines. Seizures. Head trauma. Left sided numbness. Chest pain. Traumatic brain injury. Pulmonary embolism. Dyspnea. Diabetes. Panic attacks. Anxiety. PTSD. SURGICAL HISTORY : Tubal ligation. section. Brain surgeries x5. Craniotomy. ENCOUNTER: Initial ACUITY: 2 weeks PAIN SCORE: 0/10 LOCATION: Bilateral pelvis MEASUREMENTS: UTERUS: 10.2 x 5.0 x 4.3 cm ENDOMETRIAL STRIPE: 8 mm RIGHT OVARY: 3.4 x 3.1 x 2.0 cm LEFT OVARY: 3.8 x 3.7 x 2.7 cm FINDINGS: UTERUS: Significant thickening is identified in the endometrium the above measurement of the endometrial stri pe was performed just above the uterus. The endometrium in the fundus and body of the uterus is signi ficantly thicker. There is massive myometrial mass. RIGHT OVARY: Ovary contains no mass or significant cystic lesion. LEFT OVARY: Ovary contains no mass or significant cystic lesion. MISCELLANEOUS: No free fluid. CONCLUSION: 1. Significant endometrial thickening. 2. No other significant abnormality. Ruddy Jose MD on July 12, 2017 at 12:46 Board Certified Radiologist. This report was verified electronically.
[2017-07-12] MEDS ORDERED: MAGNESIUM CITRATE SOLN 300 ML BTL PO ONE ×2 (16:00→18:00)
[2017-07-12] MEDS: LORazepam 2 MG TAB PO PRN (20:19)
[2017-07-12 21:35] LABS: HEMATOCRIT 25.4 % (35.0-46.0); HEMOGLOBIN 8.2 GM/DL (11.6-15.3)
--- NOTE | 2017-07-12 23:25 | EKG ---
Date Performed: 07/11/2017 Time Performed: 13:09:28 PTAGE: 27 years EKG: SINUS TACHYCARDIA MODERATE INTRAVENTRICULAR CONDUCTION DELAY NONSPECIFIC ST & T-WAVE ABNORM ALITY ABNORMAL RHYTHM ECG INTERPRETATION BASED ON A DEFAULT AGE OF 40 YEARS NO PREVIOUS TRACING DOCTOR: Michael Bennett Interpretating Date/Time 07/12/2017 23:24:02
[2017-07-13] VITALS (9 sets, daily range): BP systolic 118–128; BP diastolic 61–79; PULSE 88–108; RESP 18–24; TEMP 97.6–99; O2SAT 93–97
[2017-07-13] MEDS: CHLORHEXIDINE GLUCONATE 2 % 1 PACK (2 CLOTHS) TOP SCH (04:00)
[2017-07-13 05:14] LABS: HEMATOCRIT 24.4 % (35.0-46.0); HEMOGLOBIN 7.9 GM/DL (11.6-15.3); MEAN CELL VOLUME 88.2 FL (80.0-100.0); MEAN CORPUSCULAR HEMOGLOBIN 28.4 PG (27.0-34.0); MEAN CORPUSCULAR HGB CONC 32.2 % (32.0-36.0); PLATELET COUNT 272 TH/MM3 (150-450); RED BLOOD COUNT 2.77 MIL/MM3 (4.00-5.30); RED CELL DISTRIBUTION WIDTH 17.1 % (11.6-17.2); WHITE BLOOD COUNT 9.8 TH/MM3 (4.0-11.0)
[2017-07-13 05:40] LABS: INTERNATIONAL NORMALIZED RATIO 1.1 RATIO; PROTHROMBIN TIME - PATIENT 10.7 SEC (9.8-11.6)
[2017-07-13 05:49] LABS: ALBUMIN 2.2 GM/DL (3.4-5.0); ALKALINE PHOSPHATASE 157 U/L (45-117); ALT (GPT) 13 U/L (10-53); AST (GOT) 67 U/L (15-37); BLOOD UREA NITROGEN 4 MG/DL (7-18); CALCIUM 8.1 MG/DL (8.5-10.1); CHLORIDE 103 MEQ/L (98-107); DIRECT BILIRUBIN ADULT 4.8 MG/DL (0.0-0.2); FERRITIN 369 NG/ML (8-252); GLOMERULAR FILTRATION RATE 148 ML/MIN (>89); GLUCOSE,RANDOM 119 MG/DL (74-106); INDIRECT BILIRUBIN 1.3 MG/DL (0.0-0.8); IRON (FE) 66 MCG/DL (50-170); SODIUM (NA) 139 MEQ/L (136-145); TOTAL BILIRUBIN ADULT 6.1 MG/DL (0.2-1.0); TOTAL IRON BINDING CAPACITY 253 MCG/DL (250-450)
[2017-07-13 06:06] LABS: ACETAMINOPHEN LESS THAN 2.0 MCG/ML (10.0-30.0)
[2017-07-13 06:30] LABS: MAGNESIUM 1.9 MG/DL (1.5-2.5)
[2017-07-13] MEDS ORDERED: POTASSIUM CHLOR 20 MEQ PREMIX 100 ML IV SCH (06:30)
[2017-07-13] MEDS ORDERED: POTASSIUM CHLORIDE 25 MEQ EFFERVESCENT TAB PO ONE (06:30)
[2017-07-13] MEDS ORDERED: POTASSIUM CHLORIDE 20 MEQ CONTROLLED RELEASE TAB PO ONE (06:30)
[2017-07-13] MEDS: POTASSIUM CHLOR 10 MEQ PREMIX 100 ML IV SCH ×6 (07:03→16:30)
[2017-07-13] MEDS: THIAMINE HCL 100 MG TAB PO SCH (08:25)
[2017-07-13] MEDS: MULTIVITAMINS/MINERALS THERAPEUTIC TAB PO SCH (08:25)
[2017-07-13] MEDS: FOLIC ACID 1 MG TAB PO SCH (08:25)
[2017-07-13] MEDS: DOCUSATE SODIUM 50 MG/SENNA 8.6 MG TAB PO SCH ×2 (08:26→20:15)
[2017-07-13] MEDS: LORazepam 2 MG TAB PO PRN ×2 (08:26→20:13)
[2017-07-13] MEDS: SODIUM CHLORIDE 0.9% FLUSH 10 ML FLUSH IV FLUSH SCH ×2 (08:27→20:15)
[2017-07-13] MEDS: ONDANSETRON HCL 4 MG/2 ML VIAL IV PUSH PRN (08:27)
[2017-07-13] MEDS: FAMOTIDINE 20 MG/2 ML VIAL IV PUSH SCH ×2 (08:28→20:14)
[2017-07-13 09:56] LABS: HEPATITIS A AB IGM NEGATIVE (NEGATIVE); HEPATITIS B CORE AB IGM NEGATIVE (NEGATIVE); HEPATITIS B SURFACE ANTIGEN NEGATIVE (NEGATIVE); HEPATITIS C AB IgG NEGATIVE (NEGATIVE)
[2017-07-13] MEDS ORDERED: POVIDONE IODINE 5% (ANTISEPSIS KIT) 4 APPLICATIONS EACH NARE PRN (11:30)
[2017-07-13] MEDS ORDERED: LACTATED RINGER'S 1000 ML IV PRN (11:30)
[2017-07-13] MEDS ORDERED: SODIUM CHLORID 0.9% 500 ML IV PRN (11:30)
[2017-07-13] MEDS ORDERED: METOPROLOL TARTRATE 25 MG TAB PO PRN (11:30)
[2017-07-13] MEDS ORDERED: CHLORHEXIDINE GLUCONATE 2 % 1 PACK (2 CLOTHS) TOPICAL PRN (11:30)
--- NOTE | 2017-07-13 15:26 | HHI.PR ---
Subjective Remarks Nursing denies any deterioration since last night. However EGD/colonoscopy were canceled apparently due to reasons from anesthesia which are not clear. I have called Dr. Greco and left a voicemail to find out why. Patient was still hypokalemic this morning and is receiving IV potassium. She was requiring 3 L before the procedure and is now actually doing well with 2 L. On room air her oxygen saturation hovers between 89-91%. Nursing reports patient is still having some diarrhea and is noting some rectal redness as a result he had his able to use the commode/bathroom. Objective Vital Signs Date Time Temp Pulse Resp B/P (MAP) Pulse Ox O2 Delivery O2 Flow Rate FiO2 07/13/17 08:49 92 07/13/17 08:21 98.6 88 20 128/61 (83) 97 07/13/17 08:20 97 Simple Mask 6.00 07/13/17 05:18 98.5 97 18 126/68 (87) 96 07/13/17 04:00 96 07/13/17 01:44 99.0 98 18 123/79 (94) 95 07/13/17 00:39 96 07/12/17 21:56 98.2 85 18 146/83 (104) 99 07/12/17 21:14 97 Simple Mask 6.00 07/12/17 20:00 Simple Mask 6.00 07/12/17 18:31 98.1 104 20 129/72 (91) 96 07/12/17 16:19 96 Simple Mask 6.00 07/12/17 16:00 107 07/12/17 16:00 99.0 107 31 132/84 (100) 94 I/O 07/12/17 07/12/17 07/12/17 07/13/17 07/13/17 07/13/17 07:00 15:00 23:00 07:00 15:00 23:00 Intake Total 2450 ml 692 ml 2111 ml 300 ml Output Total 800 ml 1595 ml 350 ml Balance 1650 ml 692 ml 516 ml -50 ml Intake Oral 240 ml 2000 ml IV Total 1165 ml 692 ml 111 ml 300 ml Packed Cells 1015 ml Blood Product IV Normal Saline Flush 30 ml Output Urine Total 800 ml 1595 ml 350 ml # Bowel Movements 5 3 3 Result Diagram: 07/13/1743807/13/17438 Objective Remarks Young white female, obese Nasal cannula in place; appears to be in mild distress secondary to pain and 50 Appears pale Coarse breath sounds that are deep and adequate bilaterally, unlabored breathing Has mild diffuse tenderness palpation over the abdomen, more on the right side; abdomen is soft, nondistended A/P Assessment and Plan 1x fever 100.6 with - no recurrence - monitor; if recurs, obtain BCs and start abx. Acute blood loss resulting in anemia - Status post transfusion - No further clinical bleeding noted but does still has a bloody-appearing Vasquez catheter bag - Awaiting callback from anesthesiology regarding details of postponement/ cancellation of EGD/colonoscopy; gastroenterology is aware as this has also been discussed with him respiratory insufficiency - CXR which only reviewed that was done on the appears negative - repeating CXR today Severe Hypokalemia - Unknown cause at this time his magnesium levels are stable; ? GI losses versus urinary losses - We'll check urine potassium; recheck BMP in AM - replace orally aggressively as well as intravenously is warranted Diarrhea - checking c.diff; ? malabsorptive gut from drinking hx - diaper rash cream Menorrhagia - pelvic US shows endometrial thickening Mild hepatic insufficiency - Secondary to alcohol use - Showing mild improvement via CMP; trend Alcohol use - stopping librium, We'll use Ativan taper SCDs Addendum: I first had a conversation with Dr. Greco from anesthesia who canceled the procedure initially since he felt that the patient was not a stable candidate. He mentioned that she was on 6 L by the manager strategic partnerships; a RR of 32 when he himself saw her, and insisted that a Meld score needed to be calculated with a discussion with the family regarding risks and benefits. On my exam the patient is breathing at a normal rate, unlabored breathing and she is requiring anywhere from 1-2 L on the medical surgical floor today. I calculated to the med score which is a 14 which indicates 100% survival prognosis at 3 months. I discussed this with the on-call anesthesiologist who then agreed to take the patient one we were ready for an endoscopy; by this point the patient had already eaten 1 [place] and the procedure was therefore postponed at least until tomorrow. Case discussed with mother as well as gastroenterology. Tye Franco MD Jul 13, 2017 15:26
[2017-07-13] MEDS ORDERED: CALCIUM GLUCONATE INJ 1 GM in SODIUM CHLORIDE 0.9% INJ 100 ML IV ONE ×2 (15:45→16:15)
[2017-07-13] MEDS ORDERED: ZINC OXIDE 40% OINT 60 GM TUBE TOPICAL PRN (15:45)
--- NOTE | 2017-07-13 16:25 | HHI.GIFU ---
Subjective Remarks Pt resting in bed. Wants to eat. EGD/colonoscopy cancelled by anesthesia. Per RN pt doing well on 2L o2 via NC. Mother at bedside. (Pili Tompkins) Objective Vitals I&O Vital Signs Date Time Temp Pulse Resp B/P (MAP) Pulse Ox O2 Delivery O2 Flow Rate FiO2 07/13/17 08:49 92 07/13/17 08:21 98.6 88 20 128/61 (83) 97 07/13/17 08:20 97 Simple Mask 6.00 07/13/17 05:18 98.5 97 18 126/68 (87) 96 07/13/17 04:00 96 07/13/17 01:44 99.0 98 18 123/79 (94) 95 07/13/17 00:39 96 07/12/17 21:56 98.2 85 18 146/83 (104) 99 07/12/17 21:14 97 Simple Mask 6.00 07/12/17 20:00 Simple Mask 6.00 07/12/17 18:31 98.1 104 20 129/72 (91) 96 07/12/17 16:19 96 Simple Mask 6.00 I/O 07/12/17 07/12/17 07/12/17 07/13/17 07/13/17 07/13/17 07:00 15:00 23:00 07:00 15:00 23:00 Intake Total 2450 ml 692 ml 2111 ml 300 ml 100 ml Output Total 800 ml 1595 ml 350 ml Balance 1650 ml 692 ml 516 ml -50 ml 100 ml Intake Oral 240 ml 2000 ml IV Total 1165 ml 692 ml 111 ml 300 ml 100 ml Packed Cells 1015 ml Blood Product IV Normal Saline Flush 30 ml Output Urine Total 800 ml 1595 ml 350 ml # Bowel Movements 5 3 3 Laboratory Laboratory Tests Test 07/12/17 21:04 07/13/17 04:39 07/13/17 10:30 07/13/17 13:15 Hemoglobin 8.2 7.9 Hematocrit 25.4 24.4 White Blood Count 9.8 Red Blood Count 2.77 Mean Corpuscular Volume 88.2 Mean Corpuscular Hemoglobin 28.4 Mean Corpuscular Hemoglobin Concent 32.2 Red Cell Distribution Width 17.1 Platelet Count 272 Mean Platelet Volume 8.0 Prothrombin Time 10.7 Prothromb Time International Ratio 1.1 Activated Partial Thromboplast Time 24.0 Blood Urea Nitrogen 4 Creatinine 0.50 Random Glucose 119 Total Protein 7.0 Albumin 2.2 Calcium Level 8.1 Magnesium Level 1.9 Alkaline Phosphatase 157 Aspartate Amino Transf (AST/SGOT) 67 Alanine Aminotransferase (ALT/SGPT) 13 Total Bilirubin 6.1 Direct Bilirubin 4.8 Sodium Level 139 Potassium Level 2.6 Chloride Level 103 Carbon Dioxide Level 25.0 Anion Gap 11 Estimat Glomerular Filtration Rate 148 Iron Level 66 Total Iron Binding Capacity 253 Percent Iron Saturation 26.0 Ferritin 369 Indirect Bilirubin 1.3 Tumor Marker Alpha Fetoprotein 3.3 Acetaminophen Level LESS THAN 2.0 Hepatitis A IgM Antibody NEGATIVE Hepatitis B Surface Antigen NEGATIVE Hepatitis B Core IgM Antibody NEGATIVE Hepatitis C Antibody NEGATIVE Urine Random Potassium 9 Blood Gas Puncture Site RT RADIAL Blood Gas Patient Temperature 98.6 Blood Gas HCO3 25 Blood Gas Base Excess 1.9 Blood Gas Oxygen Saturation 96 Arterial Blood pH 7.48 Arterial Blood Partial Pressure CO2 34 Arterial Blood Partial Pressure O2 106 Arterial Blood Oxygen Content 15.2 Arterial Blood Carboxyhemoglobin 1.7 Arterial Blood Methemoglobin 1.1 Blood Gas Hemoglobin 11.2 Oxygen Delivery Device NASAL CANNULA Blood Gas Liter Flow 3 Imaging Last Impressions Pelvis Ultrasound 07/12/17 0000 Signed Impressions: Service Date/Time: June 09:52 - CONCLUSION: 1. Significant endometrial thickening. 2. No other significant abnormality. Ruddy Jose MD Head CT 07/11/17 0000 Signed Impressions: Service Date/Time: Tuesday, July 11, 2017 14:24 - CONCLUSION: 1. Stable CT scan of the brain without evidence of acute infarct, hemorrhage, mass or edema. 2. Left temporal and occipital encephalomalacia; unchanged. 3. Left- sided craniotomy defect again noted. Ruddy Jose MD Chest X-Ray 07/11/17 0000 Signed Impressions: Service Date/Time: Tuesday, July 11, 2017 13:35 - CONCLUSION: Mild atelectasis in the lung bases. Anthony Bolton MD Abdomen/Pelvis CT 07/11/17 0000 Signed Impressions: Service Date/Time: Tuesday, July 11, 2017 14:36 - CONCLUSION: 1. Prominent diffusely decreased hepatic density and hepatomegaly with liver measuring up to 28 cm. Findings are consistent with severe hepatic steatosis or medical liver disease. 2. Mild splenomegaly with spleen measuring up to 14.5 cm. 3. No acute abnormality in the abdomen or pelvis. 4. Normal appendix. 5. Small fat containing periumbilical anterior abdominal wall hernia. 6. Slightly prominent left ovary likely due to ovarian cysts. This is within normal limits for patient's stated age. Ultrasound examination may be performed if there is significant clinical concern. Myron Mckeon MD Physical Exam HEENT: PERRL; normocephalic; atraumatic; + icterus CHEST: CTA CARDIAC: RRR +murmur ABDOMEN: Soft,distended, nontender; no hepatosplenomegaly; bowel sounds are present in all four quadrants. EXTREMITIES: No clubbing, cyanosis, or edema. SKIN: Normal; no rash; + jaundice. CAN [employer] SETTER: alert (Pili Tompkins) Assessment and Plan Plan ASSESSMENT - anemia - hgb 4.4 on admission, up to 8.4 after 4x PRBC. normocytic. some BRBPR nothing profuse. no active bleeding at this time - BRBPR - recent hx blood on wipe after BM. plan was for EGD/colonoscopy, not done today per anesthesia d/w primary - elevated LFTs, jaundice, abnormal imaging - long standing heavy ETOH consumption, likely etoh hepatitis, could have cirrhosis. DF <32. MELD 14. hep panel negative CT showed hepatosplenomegaly, fatty liver vs hepatocellular dz. no significant coagulopathy at this time. low albumin. will get liver w/u hepatitis, autoimmune cause PLAN - EGD colonoscopy tomorrow, pt ate - CLD - NPO after midnight except prep - 1 x mg citrate in am; in time it took to reschedule pt consumed 1/2 a hamburger and some fries - await liver w/u - etoh cessation - monitor labs - further recs to follow This pt seen by myself and DR Clark and this note is written on his behalf (Pili Tompkins) Physician Comments As above, reschedule EGD/Colonoscopy. (Shay Clark MD) Pili Tompkins Jul 13, 2017 16:25 Shay Clark MD Jul 14, 2017 06:41
[2017-07-13 16:29] LABS: ANA SCREEN NEG (NEG)
[2017-07-13] MEDS: SPIRONOLACTONE 50 MG TAB PO SCH (16:43)
[2017-07-13] MEDS: LORazepam 2 MG TAB PO SCH ×2 (16:43→22:38)
--- NOTE | 2017-07-13 18:57 | RADRPT ---
EXAM DATE/TIME: 07/13/2017 18:38 [facility] COMPARISON: CHEST SINGLE AP, July 11, 2017, 13:35. INDICATIONS : Hypoxia and shortness of breath. MEDICAL HISTORY : Diabetes mellitus type II. Hypertension. Pulmonary embolism. SURGICAL HISTORY : Tubal ligation. ENCOUNTER: Subsequent ACUITY: 1 day PAIN SCORE: 0/10 LOCATION: chest FINDINGS: AP and lateral views of the chest were obtained and demonstrate new patchy airspace disease throughou t both lungs no focal consolidation. There is no effusion. The heart size is mildly prominent. The [place] thorax is intact. Multiple overlying electrocardiogram leads are present. CONCLUSION: New bilateral airspace disease of concern for pulmonary edema. This may be noncardiog enic. Anthony Bolton MD on July 13, 2017 at 18:54 Board Certified Radiologist. This report was verified electronically.
[2017-07-14] VITALS (10 sets, daily range): BP systolic 108–133; BP diastolic 58–87; PULSE 84–113; RESP 18–23; TEMP 97.8–98.4; O2SAT 92–99
[2017-07-14] MEDS: LORazepam 2 MG TAB PO PRN ×2 (01:09→04:53)
[2017-07-14] MEDS: CHLORHEXIDINE GLUCONATE 2 % 1 PACK (2 CLOTHS) TOP SCH ×2 (04:00→21:24)
[2017-07-14] MEDS: LORazepam 2 MG TAB PO SCH ×3 (06:12→17:46)
[2017-07-14] MEDS ORDERED: MAGNESIUM CITRATE SOLN 300 ML BTL PO ONE (07:00)
[2017-07-14 07:59] LABS: HEMATOCRIT 24.3 % (35.0-46.0); MEAN CELL VOLUME 89.2 FL (80.0-100.0); MEAN CORPUSCULAR HEMOGLOBIN 29.6 PG (27.0-34.0); MEAN CORPUSCULAR HGB CONC 33.1 % (32.0-36.0); MEAN PLATELET VOLUME 8.5 FL (7.0-11.0); PLATELET COUNT 287 TH/MM3 (150-450); RED BLOOD COUNT 2.72 MIL/MM3 (4.00-5.30); RED CELL DISTRIBUTION WIDTH 17.5 % (11.6-17.2); WHITE BLOOD COUNT 9.4 TH/MM3 (4.0-11.0)
[2017-07-14 08:05] LABS: INTERNATIONAL NORMALIZED RATIO 1.1 RATIO; PROTHROMBIN TIME - PATIENT 10.7 SEC (9.8-11.6)
[2017-07-14 08:17] LABS: ALBUMIN 2.1 GM/DL (3.4-5.0); BICARBONATE 24.8 MEQ/L (21.0-32.0); CALCIUM 8.1 MG/DL (8.5-10.1); CREATININE 0.47 MG/DL (0.50-1.00); INDIRECT BILIRUBIN 0.7 MG/DL (0.0-0.8); TOTAL BILIRUBIN ADULT 3.7 MG/DL (0.2-1.0); TOTAL PROTEIN 6.7 GM/DL (6.4-8.2)
[2017-07-14] MEDS: FOLIC ACID 1 MG TAB PO SCH (08:19)
[2017-07-14] MEDS: MULTIVITAMINS/MINERALS THERAPEUTIC TAB PO SCH (08:19)
[2017-07-14] MEDS: THIAMINE HCL 100 MG TAB PO SCH (08:19)
[2017-07-14] MEDS: FAMOTIDINE 20 MG/2 ML VIAL IV PUSH SCH ×2 (08:20→21:28)
[2017-07-14] MEDS: SPIRONOLACTONE 50 MG TAB PO SCH (08:20)
[2017-07-14] MEDS: DOCUSATE SODIUM 50 MG/SENNA 8.6 MG TAB PO SCH ×2 (08:20→21:27)
[2017-07-14] MEDS: SODIUM CHLORIDE 0.9% FLUSH 10 ML FLUSH IV FLUSH SCH ×2 (08:20→21:27)
[2017-07-14] MEDS ORDERED: IOHEXOL 350 MG/ML 10 ML VIAL (for RAD DIAG) IVCONTRAST ONE (09:45)
[2017-07-14 09:46] LABS: AMORPHOUS SEDIMENT, URINE OCC; BACTERIA, URINE RARE /hpf; BILIRUBIN, URINE SMALL (NEG); BLOOD, URINE MOD (NEG); GLUCOSE,URINE NEG (NEG); HYALINE CAST, URINE 1 /lpf (RARE); KETONE, URINE NEG (NEG); MUCUS URINE FEW /lpf (OCC); NITRITE,URINE NEG (NEG); PH, URINE 6.5 (5.0-8.5); SQUAMOUS EPITHELIAL CELL URINE <1 /hpf (0-5); URINE COLOR YELLOW (YELLW/STRAW); URINE LEUKOCYTE ESTERASE LARGE (NEG)
--- NOTE | 2017-07-14 09:54 | RADRPT ---
EXAM DATE/TIME: 07/14/2017 09:34 [facility] COMPARISON: CT PULMONARY ANGIOGRAM, April 12, 2017, 19:10. INDICATIONS : Hypoxia. IV CONTRAST: 70 cc Omnipaque 350 (iohexol) IV RADIATION DOSE: 27.15 CTDIvol (mGy) ; Patient body habitus MEDICAL HISTORY : Old head trauma, previous PE, Hypokalemia. SURGICAL HISTORY : Craniotomy. Tubal ligation. ENCOUNTER: Initial ACUITY: 1 day PAIN SCALE: 0/10 LOCATION: chest TECHNIQUE: Volumetric scanning of the chest was performed using a pulmonary embolism protocol MIP images were re constructed. Using automated exposure control and adjustment of the mA and/or kV according to patien t size, radiation dose was kept as low as reasonably achievable to obtain optimal diagnostic quality images. DICOM format image data is available electronically for review and comparison. Follow-up recommendations for detected pulmonary nodules are based at a minimum on nodule size and pa tient risk factors according to Fleischner Society Guidelines. FINDINGS: PULMONARY ARTERIES: No filling defects are seen in the pulmonary arteries through the segmental level. LUNGS: There is minimal patchy density in the anterior aspects of the upper lobes bilaterally. There some mi ld increased density at the bases bilaterally much of this and a linear appearance likely related to atelectasis. PLEURAE: There is a minimal left pleural effusion. MEDIASTINUM: There is scattered areas of normal-sized lymph nodes. MUSCULOSKELETAL: Within normal limits for patient age. MISCELLANEOUS: There is very prominent diffuse decreased attenuation of the liver. The liver does appear enlarged. CONCLUSION: 1. No pulmonary embolus. 2. Patchy consolidation or atelectasis in the upper lobes and lower lobes. 3. Minimal left effusion. 4. Hepatic steatosis with suspected hepatic enlargement. Marques Sebastian MD on July 14, 2017 at 9:48 Board Certified Radiologist. This report was verified electronically.
[2017-07-14] MEDS: POTASSIUM CHLORIDE 10 MEQ CONTROLLED RELEASE TAB PO SCH ×2 (10:10→21:27)
[2017-07-14] MEDS ORDERED: LOPERAMIDE HCL 2 MG CAP PO PRN (10:15)
--- NOTE | 2017-07-14 10:16 | HHI.PR ---
Subjective Remarks Nursing reports that the patient's respiratory effort will occasionally become labored with some tachypnea up to 24. Patient herself says she feels about the same as yesterday, she says she is very scared. She was seen coming out of the bathroom ambulating on her own with a Parker bag in place. Nursing reports that she is having copious bowel movements that are still somewhat brown but more liquidy than anything else; even though the patient herself says she still has some black tarry stools nursing is denying any of that detail being noted. They state that her buttocks are very erythematous from the copious stools despite the barrier cream being applied. Objective Vital Signs Date Time Temp Pulse Resp B/P (MAP) Pulse Ox O2 Delivery O2 Flow Rate FiO2 07/14/17 08:20 97.8 89 18 130/77 (94) 93 07/14/17 04:30 98.3 105 22 119/70 (86) 94 07/14/17 00:25 101 07/14/17 00:20 97.9 113 23 133/87 (102) 94 07/13/17 20:40 98.1 100 24 118/69 (85) 93 07/13/17 20:08 Nasal Cannula 2.00 07/13/17 17:33 108 07/13/17 16:36 97.6 92 18 124/73 (90) 93 I/O 07/13/17 07/13/17 07/13/17 07/14/17 07/14/17 07/14/17 07:00 15:00 23:00 07:00 15:00 23:00 Intake Total 300 ml 1210 ml 1000 ml Output Total 350 ml 1250 ml 500 ml Balance -50 ml 1210 ml -250 ml -500 ml Intake Oral 800 ml 1000 ml IV Total 300 ml 410 ml Output Urine Total 350 ml 1250 ml 500 ml # Voids 0 # Bowel Movements 3 0 0 2 Result Diagram: 07/14/17 0700 07/14/17 0700 Objective Remarks Young white female, obese Ambulating from the restroom to the bed without her nasal cannula in place; has Parker bag on her Appears nervous and eventually becomes tearful Lung sounds are remarkably clear bilaterally with mild tachypnea which I think is more due to anxiety A/P Assessment and Plan 1x fever 100.6 with - no recurrence - monitor; if recurs, obtain BCs and start abx. Acute blood loss resulting in anemia - Status post transfusion - Subjective further melena reported by patient but blood counts are holding; EGD/colonoscopy were delayed yesterday due to anesthesia wanting more clearance ; plan is to get procedures done today as the patient did have a little more prep done again yesterday Loose Diarrhea - C. difficile is negative; malabsorptive gut from drinking hx - diaper rash cream - will obtain stool studies - given the severity of her diarrhea and rectal pain I will start her on Imodium even though ideally we should hold this until her procedures are done gross and microscopic hematuria - parker in place from [facility] [place] transfer; ? UTI, discontinuing Parker and starting rocephin. F/u culture respiratory insufficiency - CXR which only reviewed that was done on the appears negative - I independently reviewed the repeat chest x-ray that was done yesterday which shows atypical bilateral infiltrates that look more access representative of a classic ARDS picture - I ordered a CT angiogram which ruled out pulmonary embolism (patient has a history of such) - I am consulting pulmonology given her young age and lack of ongoing fevers and highly atypical chest x-ray findings Still persistent Severe Hypokalemia - ? GI losses versus urinary losses. - Initially had some improvement by yesterday evening but given her persistent loose stools I believe this is why it has worsened again - I am still waiting on a urine potassium - replace orally aggressively as well as intravenously is warranted; started on spironolactone yesterday Menorrhagia - pelvic US shows endometrial thickening; IUD recs from obgyn; to f/u as outpt Mild hepatic insufficiency - Secondary to alcohol use - Showing mild improvement via CMP; trend Alcohol use - Ativan taper SCDs Tye Franco MD Jul 14, 2017 10:16
[2017-07-14] MEDS: NS + KCL 40 MEQ INJ 1,000 ML IV SCH (10:20)
[2017-07-14] MEDS ORDERED: SODIUM CHLORIDE 0.9% 20 ML VIAL IV ONE (12:00)
[2017-07-14] MEDS ORDERED: DEXAMETHASONE SOD PHOS 4 MG/ML VIAL IV ONE (12:00)
[2017-07-14] MEDS ORDERED: LIDOCAINE HCL 1% PF 5 ML SYRINGE OTHER ONE (12:00)
[2017-07-14] MEDS ORDERED: ONDANSETRON HCL 4 MG/2 ML VIAL IV PUSH ONE (12:00)
[2017-07-14] MEDS ORDERED: PHENYLEPH/NS 1000 MCG/10 ML SYR IV ONE (12:00)
[2017-07-14] MEDS ORDERED: PROPOFOL 200 MG/20 ML AMP IV ONE (12:00)
[2017-07-14] MEDS ORDERED: SUCCINYLCHOLINE CHLORIDE 100 MG/5 ML SYRINGE IV PUSH ONE (12:00)
[2017-07-14 13:52] LABS: ALPHA-1-ANTITRYPSIN 219 mg/dL (100 - 190)
[2017-07-14 14:08] LABS: SMOOTH MUSCLE TOTAL AUTOABS Negative (Negative)
[2017-07-14] MEDS ORDERED: KETAMINE HCL 500 MG/5 ML VIAL ONE (15:34)
[2017-07-14] MEDS: RESP: ALBUTEROL 2.5 MG/IPRATROPIUM 0.5 MG NEB (SCH) NEB ×2 (16:00→20:26)
[2017-07-14] MEDS ORDERED: cefTRIAXone INJ 1,000 MG in SODIUM CHLORIDE 0.9% INJ 100 ML IV SCH (16:00)
--- NOTE | 2017-07-14 16:05 | GIPROC ---
[facility] [address] [facility]. [facility], [address] EGD PROCEDURE REPORT EXAM DATE: 07/14/2017 PATIENT NAME: Maria T Markham MR #: [id number] BIRTHDATE: 1990 ATTENDING: Shay Clark MD ORDER #: [id number] MUSEUM ATTENDANT: Ciera Hernandez and Jozef Mortensen STATUS: inpatient INDICATIONS: The patient is a 27 yr old female here for an EGD due to anemia PROCEDURE PERFORMED: EGD w/ biopsy MEDICATIONS: None and Per Anesthesia. TOPICAL ANESTHETIC: none CONSENT: The patient understands the risks and benefits of the procedure and understands that these risks include, but are not limited to: sedation, allergic reaction, infection, perforation and/or bleeding. Alternative means of evaluation and treatment include, among others: physical exam, x-rays, and/or surgical intervention. The patient elects to proceed with this endoscopic procedure. medical equipment was checked for proper function. Hand hygiene and appropriate measures for infection prevention was taken. After the risks, benefits and alternatives of the procedure were thoroughly explained, Informed consent was verified, confirmed and timeout was successfully executed by the treatment team. The patient was anesthetized with topical anesthesia and the EC-3490Li (Pedi C) endoscope was introduced through the mouth and advanced to the second portion of the duodenum. Retroflexion was performed and was normal The gastroscope was then slowly withdrawn and removed. ESOPHAGUS: The esophagus was otherwise normal. STOMACH: There was chronic moderate and erosive gastritis in the gastric antrum. Multiple biopsies were performed using cold forceps. Sample sent for histology. DUODENUM: The duodenal mucosa appeared normal in the bulb and second portion of the duodenum. ADVERSE EVENTS: There were no complications. IMPRESSIONS: 1. The esophagus was otherwise normal 2. There was chronic gastritis in the gastric antrum; multiple biopsies were performed 3. Normal duodenal mucosa in the bulb and second portion of the duodenum 4. Retroflexion was performed and was normal RECOMMENDATIONS: 1. Await biopsy results. Biopsy results will not be ready for 7-10 days. If you don't hear from us in two weeks, call our office for biopsy results. 2. Continue PPI PATIENT CONDITION: stable DISPOSITION: Observation REPEAT EXAM: NONE Shay Clark MD eSigned: Shay Clark MD 07/14/2017 4:04 PM cc: PATIENT NAME: Grazyna Markhamjuan Louie MR#: [id number]
--- NOTE | 2017-07-14 16:30 | GIPROC ---
[facility] [address] [facility]. [facility], [address] COLONOSCOPY PROCEDURE REPORT EXAM DATE: 07/14/2017 PATIENT NAME: Maria T Markham MR #: [id number] BIRTHDATE: 1990 ENDOSCOPIST: Shay Clark MD ORDER #: [id number] SACK REPAIRER: Ciera Hernandez and Jozef Mortensen STATUS: inpatient INDICATIONS: The patient is a 27 yr old female here for a colonoscopy due to anemia, non-specific PROCEDURE PERFORMED: Colonoscopy with polypectomy MEDICATIONS: None and Per Anesthesia. PREP QUALITY: good PREP TYPE:GoLytely ESTIMATED BLOOD LOSS: None CONSENT: The patient understands the risks and benefits of the procedure and understands that these risks include, but are not limited to: sedation, allergic reaction, infection, perforation and/or bleeding. Alternative means of evaluation and treatment include, among others: physical exam, x-rays, and/or surgical intervention. The patient elects to proceed with this endoscopic procedure. medical equipment was checked for proper function. Hand hygiene and appropriate measures for infection prevention was taken. After the risks, benefits and alternatives of the procedure were thoroughly explained, Informed consent was verified, confirmed and timeout was successfully executed by the treatment team. A digital exam was performed The Pentax EC-3490Li endoscope was introduced through the anus and advanced to the cecum, which was identified by both the appendix and ileocecal valve. The instrument was then slowly withdrawn as the colon was fully examined. COLON FINDINGS: A small polypoid shaped flat polyp with a friable surface was found in the sigmoid colon. A polypectomy was performed with cold forceps. The resection was complete and the polyp tissue was completely retrieved. Retroflexed views revealed no abnormalities The scope was then completely withdrawn from the patient and the procedure terminated. PROCEDURE WITHDRAWAL TIME:9minutes ADVERSE EVENTS: There were no complications. IMPRESSIONS: 1. A small flat polyp was found in the sigmoid colon; polypectomy was performed with cold forceps 2. Retroflexed views revealed no abnormalities RECOMMENDATIONS: Await biopsy results. Biopsy results will not be ready for 7-10 days. If you don't hear from us in two weeks, call our office for results. RECALL: Colonoscopy, pending biopsy results Shay Clark MD eSigned: Shay Clark MD 07/14/2017 4:30 PM cc: PATIENT NAME: Maria T Markham Liban MR#: [id number]
[2017-07-14] MEDS ORDERED: *RESP: ALBUTEROL 2.5 MG/3 ML NEB (PRN) PERIprocedural Use ONLY NEB ONE ×2 (16:48→16:58)
[2017-07-14] MEDS ORDERED: MIDAZOLAM HCL 2 MG/2 ML VIAL ONE (16:57)
[2017-07-14] MEDS ORDERED: DO NOT ADM ANY ANTICOAGULANT DRUGS PRN (17:00)
--- NOTE | 2017-07-14 18:48 | MB ---
cc: APRYL GILL DATE OF CONSULTATION: 07/14/2017. REASON FOR CONSULTATION: Hypoxia and pneumonia. HISTORY OF PRESENT ILLNESS: This is a 27-year-old obese female with a history of vaginal bleeding who was admitted with progressive weakness, dizziness of three to four days duration and also a syncopal episode. The patient was seen in the emergency room and noted to be severely anemic with hemoglobin down to 4.4 and a heart rate of over 120. She was transfused with two units packed red cells and received fluid boluses and was subsequently admitted to the intensive care unit. CT abdomen and pelvis was done and she was noted to have liver disease and the patient was apparently drinking half a bottle of vodka daily since the last several years. She was also smoking half to one pack per day for the past ten years. She denied any nausea but did have an episode of vomiting and has had rectal bleeding on and off. The patient denies any chronic lung disease. PAST MEDICAL HISTORY: Her past history has included: 1. History of anxiety attacks. 2. History of pulmonary embolism. 3. Prior history of chronic headaches. 4. History for seizures. 5. Migraines. 6. She has had a tubal ligation in the past. 7. section in the past x2. 8. Brain surgeries with craniotomy in 2008 with placement of a plate and this was removed five years later. HABITS: The patient smoked half to one pack per day and has done so for ten years. Alcohol use - quite regular. ALLERGIES: NONE LISTED. FAMILY HISTORY: Noncontributory. REVIEW OF SYSTEMS: The patient is overweight. She has headaches, blurriness of vision, hoarseness, shortness of breath, wheezing. She has epigastric distress and nausea. She has no urinary symptoms. Denies leg or calf muscle pains. She has no skin lesions. PHYSICAL EXAMINATION: GENERAL: This is a moderately overweight young white female who is mildly dyspneic at rest. VITAL SIGNS: Blood pressure 130/60, pulse 105, respirations 24, temperature 100.1. HEAD, EYES, EARS, NOSE, THROAT: Head normocephalic. The pupils are reactive. Tongue is dry. Throat is injected. NECK: The neck is supple. No bruits. No thyroid enlargement. No lymphadenopathy. CHEST: Expiratory wheezes throughout both lung hall with occasional crackles in the right chest. HEART: Heart sounds are regular. S1 and S2. No murmur. ABDOMEN: Abdomen soft and obese without masses. No organomegaly or tenderness. The bowel sounds are active. EXTREMITIES: No lesions. No edema. No calf tenderness. NEUROLOGIC: Reflexes are 1+. No gross motor deficits. Cranial nerves are grossly intact. RECTAL: Rectal exam is deferred. IMPRESSION: 1. Upper lobe pneumonia with hypoxemia. 2. Reactive airway disease. 3. Severe anemia with blood loss resolved. 4. Alcohol-induced liver disease. 5. Hypokalemia. PLAN: 1. The patient will be placed on Rocephin 1 gram IV daily. 2. Zithromax 500 milligrams p.o. daily. 3. Nebulized albuterol and Atrovent solution four times a day. 4. Bedside pulmonary function studies to be done. 5. Follow up chest x-ray this week. 6. Sputum for culture and gram stain. 7. She will also be placed on Solu-Medrol 40 milligrams twice a day for three days. 8. O2 supplementation at three liters nasal cannula to maintain saturations greater than 92. Thank you for this consultation. MD UTE Bullard/OLINDA /6:03 PM /6:22 PM
[2017-07-14] MEDS ORDERED: SODIUM CHLOR 0.9% 1000 ML INJ 1,000 ML IV ONE ×2 (19:15)
[2017-07-14 21:21] LABS: BICARBONATE 23.3 MEQ/L (21.0-32.0); CALCIUM 7.9 MG/DL (8.5-10.1); CREATININE 0.63 MG/DL (0.50-1.00)
[2017-07-14] MEDS: cefTRIAXone INJ 1,000 MG in SODIUM CHLORIDE 0.9% INJ 100 ML IV SCH (21:27)
[2017-07-15] VITALS (8 sets, daily range): BP systolic 111–154; BP diastolic 70–87; PULSE 81–97; RESP 17–20; TEMP 97–98.4; O2SAT 93–100
[2017-07-15] MEDS: LORazepam 2 MG TAB PO SCH ×3 (02:09→16:48)
[2017-07-15] MEDS: RESP: ALBUTEROL 2.5 MG/IPRATROPIUM 0.5 MG NEB (SCH) NEB ×4 (04:00→21:56)
[2017-07-15] MEDS: NS + KCL 40 MEQ INJ 1,000 ML IV SCH ×2 (08:49→17:25)
[2017-07-15] MEDS: SODIUM CHLORIDE 0.9% FLUSH 10 ML FLUSH IV FLUSH SCH ×2 (09:00→22:20)
[2017-07-15] MEDS: SPIRONOLACTONE 50 MG TAB PO SCH (09:25)
[2017-07-15] MEDS: FOLIC ACID 1 MG TAB PO SCH (09:25)
[2017-07-15] MEDS: THIAMINE HCL 100 MG TAB PO SCH (09:25)
[2017-07-15] MEDS: MULTIVITAMINS/MINERALS THERAPEUTIC TAB PO SCH (09:25)
[2017-07-15] MEDS: AZITHROMYCIN 250 MG TAB PO SCH (09:25)
[2017-07-15] MEDS: POTASSIUM CHLORIDE 10 MEQ CONTROLLED RELEASE TAB PO SCH ×2 (09:26→22:20)
[2017-07-15] MEDS: DOCUSATE SODIUM 50 MG/SENNA 8.6 MG TAB PO SCH ×2 (09:26→22:19)
[2017-07-15] MEDS: FAMOTIDINE 20 MG/2 ML VIAL IV PUSH SCH ×2 (09:27→22:20)
--- NOTE | 2017-07-15 12:01 | HHI.PR ---
Subjective Remarks Nursing denies any deterioration since last night. Patient now having less loose stools but she wasn't given Imodium even though was written yesterday. Patient herself says that her buttocks rash pain is significantly better today than yesterday. No bloody bowel movements; patient is unsure if she has gross hematuria in her urine or not. Mother and possible and at bedside and are requesting more therapy for the patient's buttocks rash. Vasquez catheter was removed yesterday evening. Objective Vital Signs Date Time Temp Pulse Resp B/P (MAP) Pulse Ox O2 Delivery O2 Flow Rate FiO2 07/15/17 09:52 Nasal Cannula 2.00 07/15/17 09:23 95 Nasal Cannula 3.00 07/15/17 08:00 98.4 81 20 132/72 (92) 94 07/15/17 04:00 97.0 87 18 129/80 (96) 97 07/15/17 00:00 97.6 87 18 111/70 (84) 95 07/14/17 20:26 93 Nasal Cannula 3.00 07/14/17 20:00 98.4 94 20 108/58 (75) 92 07/14/17 19:00 Simple Mask 2.00 07/14/17 17:15 91 25 120/59 (79) 93 Simple Mask 4 07/14/17 17:00 97 25 125/59 (81) 91 Simple Mask 5 07/14/17 16:50 99.0 104 25 117/76 (90) 88 Simple Mask 6 07/14/17 13:32 99 Nasal Cannula 3.00 07/14/17 12:00 107 07/14/17 11:56 98.3 89 18 111/71 (84) 92 I/O 07/14/17 07/14/17 07/14/17 07/15/17 07/15/17 07/15/17 07:00 15:00 23:00 07:00 15:00 23:00 Intake Total 1000 ml 1420 ml Output Total 1250 ml 500 ml 875 ml Balance -250 ml -500 ml 1420 ml -875 ml Intake Oral 1000 ml IV Total 420 ml Other 1000 ml Output Urine Total 1250 ml 500 ml 875 ml # Voids 1 # Bowel Movements 0 2 6 Result Diagram: 07/14/17 0700 07/14/172009 Objective Remarks Young white female, obese Lung sounds are remarkably clear bilaterally with unlabored respiratory effort Buttocks examined with timekeeper supervisor in the room, see mild bilateral gluteal fold excoriations with no bleeding noted A/P Assessment and Plan respiratory insufficiency - I independently reviewed the repeat chest x-ray that was done on 07/13 which showed atypical bilateral infiltrates that look more customer operations representative of a classic ARDS picture; repeat CXR is pending per radiology clerk - CTA negative for embolism - Pulmonology following, appreciate recommendations. Tx for PNA w/ Zithromax. Acute blood loss resulting in anemia - Status post transfusion - now stable. - Yesterday's EGD showing chronic gastritis with no sources of active bleeding, colonoscopy showed one polyp, otherwise unremarkable findings - continue Protonix Loose Diarrhea - Most likely viral enteritis and or secondary to oral prep. Clinically improving with loperamide. Stool WBCs and C. diff negative. Giardia and cryptosporidium pending but are likely to be negative. buttocks rash - 2/2 diarrhea, i suspect this is already improving but will try to add on A/D ointment to see if this helps Possible UTI - Continuing Rocephin until cultures result hypokalemia - improving - most likely from GI losses. As urinary calcium excretion is low normal. Continue oral calcium supplements as well as spironolactone. Overall I expect her hypokalemia is improving because her diarrhea is improving. Menorrhagia - pelvic US shows endometrial thickening; IUD recs from obgyn; to f/u as outpt - stable Mild hepatic insufficiency - Secondary to alcohol use - autoimmune labs pending per GI orders; so far have been negative - bilirubin down from 6.1 to 3.7 Alcohol use - Ativan taper SCDs Tye Franco MD Jul 15, 2017 12:01
--- NOTE | 2017-07-15 12:36 | HHI.GIFU ---
Subjective Remarks Went for x-ray x-ray, now back in room Diarrhea 1, no blood seen Still has right upper quadrant pain, mild Up standing next to bed, encourage patient to be as active as tolerated Afebrile (Aicha Nam) Objective Vitals I&O Vital Signs Date Time Temp Pulse Resp B/P (MAP) Pulse Ox O2 Delivery O2 Flow Rate FiO2 07/15/17 12:18 98.1 97 20 116/72 (87) 93 07/15/17 09:52 Nasal Cannula 2.00 07/15/17 09:23 95 Nasal Cannula 3.00 07/15/17 08:00 98.4 81 20 132/72 (92) 94 07/15/17 04:00 97.0 87 18 129/80 (96) 97 07/15/17 00:00 97.6 87 18 111/70 (84) 95 07/14/17 20:26 93 Nasal Cannula 3.00 07/14/17 20:00 98.4 94 20 108/58 (75) 92 07/14/17 19:00 Simple Mask 2.00 07/14/17 17:15 91 25 120/59 (79) 93 Simple Mask 4 07/14/17 17:00 97 25 125/59 (81) 91 Simple Mask 5 07/14/17 16:50 99.0 104 25 117/76 (90) 88 Simple Mask 6 07/14/17 13:32 99 Nasal Cannula 3.00 I/O 07/14/17 07/14/17 07/14/17 07/15/17 07/15/17 07/15/17 07:00 15:00 23:00 07:00 15:00 23:00 Intake Total 1000 ml 1420 ml Output Total 1250 ml 500 ml 875 ml Balance -250 ml -500 ml 1420 ml -875 ml Intake Oral 1000 ml IV Total 420 ml Other 1000 ml Output Urine Total 1250 ml 500 ml 875 ml # Voids 1 # Bowel Movements 0 2 6 Laboratory Laboratory Tests Test 07/14/17 20:10 07/14/17 20:55 07/15/17 10:50 Blood Urea Nitrogen 3 Creatinine 0.63 Random Glucose 160 Calcium Level 7.9 Sodium Level 141 Potassium Level 3.3 Chloride Level 105 Carbon Dioxide Level 23.3 Anion Gap 13 Estimat Glomerular Filtration Rate 113 Blood Gas Puncture Site RT RADIAL Blood Gas Patient Temperature 98.6 Blood Gas HCO3 23 Blood Gas Base Excess -0.5 Blood Gas Oxygen Saturation 92 Arterial Blood pH 7.46 Arterial Blood Partial Pressure CO2 33 Arterial Blood Partial Pressure O2 71 Arterial Blood Oxygen Content 15.1 Arterial Blood Carboxyhemoglobin 1.9 Arterial Blood Methemoglobin 0.9 Blood Gas Hemoglobin 11.6 Oxygen Delivery Device NASAL CANNULA Blood Gas Liter Flow 3 Date/Time Source Procedure Growth Status 07/14/17 11:30 Stool Stool Cryptosporidium Exam Pending Resulted 07/14/17 11:30 Stool Stool Stool Pus (FELIPE) - Final NO WBC'S SEEN Resulted 07/14/17 11:30 Stool Stool Giardia Antigen (FELIPE) Pending Resulted 07/15/17 11:35 Sputum Expectorated Sputum Gram Stain Pending Received 07/15/17 11:35 Sputum Expectorated Sputum Sputum Culture Pending Received 07/14/17 09:00 Urine Clean Catch Urine Culture - Preliminary Gram Negative Nelson Resulted Imaging Last Impressions Chest X-Ray 07/15/17 0600 Signed Impressions: Service Date/Time: Saturday, July 15, 2017 12:15 - CONCLUSION: Persistent but improving patchy areas of consolidation. Marques Sebastian MD CT Angiography 07/14/17 0000 Signed Impressions: Service Date/Time: Friday, July 14, 2017 09:34 - CONCLUSION: 1. No pulmonary embolus. 2. Patchy consolidation or atelectasis in the upper lobes and lower lobes. 3. Minimal left effusion. 4. Hepatic steatosis with suspected hepatic enlargement. Maruqes Sebastian MD Pelvis Ultrasound 07/12/17 0000 Signed Impressions: Service Date/Time: June 09:52 - CONCLUSION: 1. Significant endometrial thickening. 2. No other significant abnormality. Ruddy Jose MD Head CT 07/11/17 0000 Signed Impressions: Service Date/Time: Tuesday, July 11, 2017 14:24 - CONCLUSION: 1. Stable CT scan of the brain without evidence of acute infarct, hemorrhage, mass or edema. 2. Left temporal and occipital encephalomalacia; unchanged. 3. Left- sided craniotomy defect again noted. Ruddy Jose MD Abdomen/Pelvis CT 07/11/17 0000 Signed Impressions: Service Date/Time: Tuesday, July 11, 2017 14:36 - CONCLUSION: 1. Prominent diffusely decreased hepatic density and hepatomegaly with liver measuring up to 28 cm. Findings are consistent with severe hepatic steatosis or medical liver disease. 2. Mild splenomegaly with spleen measuring up to 14.5 cm. 3. No acute abnormality in the abdomen or pelvis. 4. Normal appendix. 5. Small fat containing periumbilical anterior abdominal wall hernia. 6. Slightly prominent left ovary likely due to ovarian cysts. This is within normal limits for patient's stated age. Ultrasound examination may be performed if there is significant clinical concern. Myron Mckeon MD Physical Exam HEENT: PERRL; normocephalic; atraumatic; + icterus sclera CHEST: CTA, low volumes CARDIAC: RRR +murmur ABDOMEN: Soft,distended, right upper quadrant tenderness; no hepatosplenomegaly ; bowel sounds are present in all four quadrants. EXTREMITIES: No clubbing, cyanosis, or edema. SKIN: Normal; no rash; + jaundice. Mild CUSTOM HARVESTER: alert (Aicha Nam) Assessment and Plan Plan ASSESSMENT - anemia - hgb 4.4 on admission, up to 8.4 after 4x PRBC. normocytic. some BRBPR nothing profuse. no active bleeding at this time - BRBPR - recent hx blood on wipe after BM EGD 07/14/18, chronic gastritis Colonoscopy 07/14/18. 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 DF <32. MELD 14. hep panel negative, still complains of some mild upper quadrant pain CT showed hepatosplenomegaly, fatty liver. no significant coagulopathy at this time. low albumin. will get liver w/u hepatitis, autoimmune cause 07/11/[address], profuse decreased hepatic density and hepatomegaly probable severe hepatic steatosis, mild splenomegaly small umbilical abdominal wall hernia. PLAN F/U biopsy results, discussed findings of EGD and colonoscopy, she doesn't remember having test Increase activity in room - etoh cessation, encouraged and discussed with patient - monitor labs, recheck CBC CMP in the morning - further recs to follow Monitor for any acute bleeding This pt seen by myself and DR Clark, note is written on his behalf (Aicha Nam) Physician Comments Seen and examined, plan as above, will follow up with you with pathology results. (Shay Clark MD) Aicha Nam Jul 15, 2017 12:36 Shay Clark MD Jul 15, 2017 17:59
[2017-07-15 12:44] LABS: HEMATOCRIT 30.2 % (35.0-46.0); MEAN CELL VOLUME 99.6 FL (80.0-100.0); MEAN CORPUSCULAR HEMOGLOBIN 29.5 PG (27.0-34.0); MEAN PLATELET VOLUME 8.8 FL (7.0-11.0); PLATELET COUNT 349 TH/MM3 (150-450); RED BLOOD COUNT 3.04 MIL/MM3 (4.00-5.30); RED CELL DISTRIBUTION WIDTH 19.5 % (11.6-17.2); WHITE BLOOD COUNT 9.2 TH/MM3 (4.0-11.0)
[2017-07-15 12:45] LABS: MEAN CORPUSCULAR HGB CONC 29.6 % (32.0-36.0)
--- NOTE | 2017-07-15 12:47 | RADRPT ---
EXAM DATE/TIME: 07/15/2017 12:15 [place] COMPARISON: CHEST PA & LAT, July 13, 2017, 18:38. INDICATIONS : Short of Breath MEDICAL HISTORY : Diabetes mellitus type II. Hypertension. Pulmonary embolism SURGICAL HISTORY : Tubal ligation ENCOUNTER: Subsequent ACUITY: 2 days PAIN SCORE: 0/10 LOCATION: Bilateral chest FINDINGS: The heart size is normal. There is patchy areas of consolidation seen in the lungs being most promine nt at the bases. The aeration of the lungs appears improved from the prior exam. Significant effusion s are not seen. CONCLUSION: Persistent but improving patchy areas of consolidation. Marques Sebastian MD on July 15, 2017 at 12:43 Board Certified Radiologist. This report was verified electronically.
[2017-07-15 12:48] LABS: INTERNATIONAL NORMALIZED RATIO 1.1 RATIO; PROTHROMBIN TIME - PATIENT 10.7 SEC (9.8-11.6)
[2017-07-15] MEDS ORDERED: VITAMINS A & D OINT 60 GM TUBE TOPICAL PRN (14:00)
[2017-07-15 15:51] LABS: CERULOPLASMIN 46 mg/dL (18-53)
[2017-07-15] MEDS: cefTRIAXone INJ 1,000 MG in SODIUM CHLORIDE 0.9% INJ 100 ML IV SCH (20:00)
[2017-07-16] VITALS (11 sets, daily range): BP systolic 123–150; BP diastolic 71–91; PULSE 80–98; RESP 18–24; TEMP 97.3–98.5; O2SAT 92–98
[2017-07-16] MEDS ORDERED: guaiFENesin E.R. 600 MG TAB PO ONE (02:30)
[2017-07-16] MEDS: RESP: ALBUTEROL 2.5 MG/IPRATROPIUM 0.5 MG NEB (SCH) NEB ×4 (02:46→20:58)
[2017-07-16] MEDS: CHLORHEXIDINE GLUCONATE 2 % 1 PACK (2 CLOTHS) TOP SCH (04:00)
[2017-07-16] MEDS: LORazepam 2 MG TAB PO SCH ×2 (05:39→21:14)
[2017-07-16 06:15] LABS: AUTOMATED NEUTROPHIL # 5.5 TH/MM3 (1.8-7.7); BASOPHIL % 0.5 % (0.0-2.0); EOSINOPHIL # 0.1 TH/MM3 (0-0.4); EOSINOPHIL % 1.4 % (0.0-4.0); HEMATOCRIT 24.8 % (35.0-46.0); HEMOGLOBIN 7.7 GM/DL (11.6-15.3); LYMPHOCYTE # 1.2 TH/MM3 (1.0-4.8); MEAN CELL VOLUME 93.3 FL (80.0-100.0); MEAN CORPUSCULAR HEMOGLOBIN 28.8 PG (27.0-34.0); MEAN CORPUSCULAR HGB CONC 30.9 % (32.0-36.0); MEAN PLATELET VOLUME 8.2 FL (7.0-11.0); MONO % 3.9 % (0.0-8.0); MONOCYTE # 0.3 TH/MM3 (0-0.9); NEUT % 77.2 % (16.0-70.0); PLATELET COUNT 298 TH/MM3 (150-450); RED BLOOD COUNT 2.65 MIL/MM3 (4.00-5.30); RED CELL DISTRIBUTION WIDTH 17.7 % (11.6-17.2); WHITE BLOOD COUNT 7.2 TH/MM3 (4.0-11.0)
[2017-07-16 06:20] LABS: PROTHROMBIN TIME - PATIENT 10.4 SEC (9.8-11.6)
[2017-07-16 06:38] LABS: ALBUMIN 2.2 GM/DL (3.4-5.0); ALT (GPT) 23 U/L (10-53); AST (GOT) 63 U/L (15-37); BICARBONATE 24.2 MEQ/L (21.0-32.0); BLOOD UREA NITROGEN 5 MG/DL (7-18); CALCIUM 7.8 MG/DL (8.5-10.1); CHLORIDE 110 MEQ/L (98-107); CREATININE 0.63 MG/DL (0.50-1.00); GLOMERULAR FILTRATION RATE 113 ML/MIN (>89); GLUCOSE,RANDOM 122 MG/DL (74-106); SODIUM (NA) 143 MEQ/L (136-145)
[2017-07-16 06:41] LABS: ALKALINE PHOSPHATASE 159 U/L (45-117); TOTAL BILIRUBIN ADULT 2.4 MG/DL (0.2-1.0); TOTAL PROTEIN 6.6 GM/DL (6.4-8.2)
--- NOTE | 2017-07-16 08:52 | HHI.PR ---
Subjective Remarks In bed appears in nad. Feesl tired. No bleeding. No abd pain, n/v/d/c. No fever or chills. With sob and wheezing nebs helps not wheezing now. Objective Vitals Vital Signs Date Time Temp Pulse Resp B/P (MAP) Pulse Ox O2 Delivery O2 Flow Rate FiO2 07/16/17 07:54 98.5 85 22 123/77 (92) 95 07/16/17 04:30 98.2 92 18 123/71 (88) 97 07/16/17 01:23 98.0 98 22 123/72 (89) 92 07/16/17 00:30 93 07/15/17 23:40 Nasal Cannula 2.00 07/15/17 21:59 99 Nasal Cannula 2.00 07/15/17 20:30 93 07/15/17 20:30 97.7 89 17 154/87 (109) 99 07/15/17 17:08 98.2 94 19 121/78 (92) 100 07/15/17 12:18 98.1 97 20 116/72 (87) 93 07/15/17 09:52 Nasal Cannula 2.00 07/15/17 09:23 95 Nasal Cannula 3.00 I/O 07/15/17 07/15/17 07/15/17 07/16/17 07/16/17 07/16/17 07:00 15:00 23:00 07:00 15:00 23:00 Intake Total 240 ml Output Total 875 ml Balance -875 ml 240 ml Intake Oral 240 ml Output Urine Total 875 ml # Voids 1 3 # Bowel Movements 1 Result Diagram: 07/16/17 0538 07/16/17 0538 Imaging Last Impressions Chest X-Ray 07/15/17 0600 Signed Impressions: Service Date/Time: Saturday, July 15, 2017 12:15 - CONCLUSION: Persistent but improving patchy areas of consolidation. Marques Sebastian MD CT Angiography 07/14/17 0000 Signed Impressions: Service Date/Time: Friday, July 14, 2017 09:34 - CONCLUSION: 1. No pulmonary embolus. 2. Patchy consolidation or atelectasis in the upper lobes and lower lobes. 3. Minimal left effusion. 4. Hepatic steatosis with suspected hepatic enlargement. Marques Sebastian MD Pelvis Ultrasound 07/12/17 0000 Signed Impressions: Service Date/Time: June 09:52 - CONCLUSION: 1. Significant endometrial thickening. 2. No other significant abnormality. Ruddy Jose MD Head CT 07/11/17 0000 Signed Impressions: Service Date/Time: Tuesday, July 11, 2017 14:24 - CONCLUSION: 1. Stable CT scan of the brain without evidence of acute infarct, hemorrhage, mass or edema. 2. Left temporal and occipital encephalomalacia; unchanged. 3. Left- sided craniotomy defect again noted. Ruddy Jose MD Abdomen/Pelvis CT 07/11/17 0000 Signed Impressions: Service Date/Time: Tuesday, July 11, 2017 14:36 - CONCLUSION: 1. Prominent diffusely decreased hepatic density and hepatomegaly with liver measuring up to 28 cm. Findings are consistent with severe hepatic steatosis or medical liver disease. 2. Mild splenomegaly with spleen measuring up to 14.5 cm. 3. No acute abnormality in the abdomen or pelvis. 4. Normal appendix. 5. Small fat containing periumbilical anterior abdominal wall hernia. 6. Slightly prominent left ovary likely due to ovarian cysts. This is within normal limits for patient's stated age. Ultrasound examination may be performed if there is significant clinical concern. Myron Mckeon MD Objective Remarks GENERAL: Young white female, obese SKIN: Buttocks examined with document advisor in the room, see mild bilateral gluteal fold excoriations with no bleeding noted CARDIOVASCULAR: Regular rate and rhythm. RESPIRATORY: Lung sounds are remarkably clear bilaterally with unlabored respiratory effort GASTROINTESTINAL: Abdomen soft, non-tender, nondistended. Hepatic and splenic margins not palpable. MUSCULOSKELETAL: Extremities without clubbing, cyanosis, or edema. No obvious deformities. NEUROLOGICAL: Awake and alert. No obvious cranial nerve deficits. Motor grossly within normal limits. Five out of 5 muscle strength in the arms and legs. Normal speech. PSYCHIATRIC: Appropriate mood and affect; insight and judgment normal. A/P Assessment and Plan Respiratory insufficiency - I independently reviewed the repeat chest x-ray that was done on 07/13 which showed atypical bilateral infiltrates that look more financial representative of a classic ARDS picture; repeat CXR is pending per welding technician - CTA negative for embolism - Pulmonology following, appreciate recommendations. Tx for PNA w/ Zithromax. Acute blood loss resulting in anemia - Status post transfusion - now stable. - EGD showing chronic gastritis with no sources of active bleeding, colonoscopy showed one polyp, otherwise unremarkable findings - continue Protonix Loose Diarrhea - Most likely viral enteritis and or secondary to oral prep. Clinically improving with loperamide. Stool WBCs and C. diff negative. Giardia and cryptosporidium pending but are likely to be negative. Buttocks rash - 2/2 diarrhea, i suspect this is already improving but will try to add on A/D ointment to see if this helps E Coli UTI - Received Rocephin . Cultures with E coli. Change abx to PO ciprofloxacin Hypokalemia - improving - most likely from GI losses. As urinary calcium excretion is low normal. Continue oral calcium supplements as well as spironolactone. Overall I expect her hypokalemia is improving because her diarrhea is improving. Menorrhagia - pelvic US shows endometrial thickening; IUD recs from obgyn; to f/u as outpt - stable Mild hepatic insufficiency - Secondary to alcohol use - autoimmune labs pending per GI orders; so far have been negative - bilirubin down from 6.1 to 3.7 Alcohol use - Ativan taper Patient and her mother were extensively counseled on the importance of alcohol cessation to salvage whatever liver function the patient may have left for the rest of her lifetime. DVT ppx: SCDs DC plan: pending improvement poss DC later today or tomorrow if improves and cleared by GI. Sakshi Landry MD Jul 16, 2017 08:51
[2017-07-16] MEDS: FAMOTIDINE 20 MG/2 ML VIAL IV PUSH SCH ×2 (09:35→21:12)
[2017-07-16] MEDS: DOCUSATE SODIUM 50 MG/SENNA 8.6 MG TAB PO SCH ×2 (09:35→21:00)
[2017-07-16] MEDS: THIAMINE HCL 100 MG TAB PO SCH (09:36)
[2017-07-16] MEDS: SPIRONOLACTONE 50 MG TAB PO SCH (09:36)
[2017-07-16] MEDS: SODIUM CHLORIDE 0.9% FLUSH 10 ML FLUSH IV FLUSH SCH ×2 (09:36→21:00)
[2017-07-16] MEDS: POTASSIUM CHLORIDE 10 MEQ CONTROLLED RELEASE TAB PO SCH ×2 (09:36→21:12)
[2017-07-16] MEDS: FOLIC ACID 1 MG TAB PO SCH (09:36)
[2017-07-16] MEDS: AZITHROMYCIN 250 MG TAB PO SCH (09:36)
[2017-07-16] MEDS: MULTIVITAMINS/MINERALS THERAPEUTIC TAB PO SCH (09:36)
--- NOTE | 2017-07-16 16:58 | HHI.PR ---
Subjective Remarks Feels Better. On O2 at 3 L.No wheezing. No fever. On Rocephin and Zithromax Objective Vital Signs Date Time Temp Pulse Resp B/P (MAP) Pulse Ox O2 Delivery O2 Flow Rate FiO2 07/16/17 16:11 98 Nasal Cannula 2.00 07/16/17 13:21 Nasal Cannula 2.00 07/16/17 11:52 98.1 80 22 136/91 (106) 95 07/16/17 09:56 93 Nasal Cannula 2.00 07/16/17 07:54 98.5 85 22 123/77 (92) 95 07/16/17 04:30 98.2 92 18 123/71 (88) 97 07/16/17 01:23 98.0 98 22 123/72 (89) 92 07/16/17 00:30 93 07/15/17 23:40 Nasal Cannula 2.00 07/15/17 21:59 99 Nasal Cannula 2.00 07/15/17 20:30 93 07/15/17 20:30 97.7 89 17 154/87 (109) 99 07/15/17 17:08 98.2 94 19 121/78 (92) 100 I/O 07/15/17 07/15/17 07/15/17 07/16/17 07/16/17 07/16/17 07:00 15:00 23:00 07:00 15:00 23:00 Intake Total 240 ml 480 ml Output Total 875 ml Balance -875 ml 240 ml 480 ml Intake Oral 240 ml 480 ml Output Urine Total 875 ml # Voids 1 3 3 # Bowel Movements 1 Result Diagram: 07/16/17 0538 07/16/17 0538 Objective Remarks GENERAL: This is a moderately overweight young white female who is not dyspneic at rest. HEAD, EYES, EARS, NOSE, THROAT: Head normocephalic. The pupils are reactive. Tongue is dry. Throat is injected. NECK: The neck is supple. No bruits. No thyroid enlargement. No lymphadenopathy. CHEST: Expiratory wheezes throughout both lung hall and no Crackles HEART: Heart sounds are regular. S1 and S2. No murmur. ABDOMEN: Abdomen soft and obese without masses. No organomegaly or tenderness. The bowel sounds are active. EXTREMITIES: No lesions. No edema. No calf tenderness. NEUROLOGIC: Reflexes are 1+. No gross motor deficits. Cranial nerves are grossly intact. RECTAL: Rectal exam is deferred. Assessment and Plan Assessment and Plan IMPRESSION: 1. Upper lobe pneumonia with hypoxemia. 2. Reactive airway disease. 3. Severe anemia with blood loss resolved. 4. Alcohol-induced liver disease. 5. Hypokalemia. Plan : 1. Continue Rocephin/Zithromax 2. Nebs qid , duoneb. 3. O2 at 2 L. 4. Chest Xray in am 5. IS q2 h bedside 6. CBC,BMP. Abimael Gonzalez MD Jul 16, 2017 16:58
[2017-07-16] MEDS: cefTRIAXone INJ 1,000 MG in SODIUM CHLORIDE 0.9% INJ 100 ML IV SCH (21:12)
[2017-07-16] MEDS: NS + KCL 40 MEQ INJ 1,000 ML IV SCH (21:51)
[2017-07-17] VITALS (8 sets, daily range): BP systolic 127–162; BP diastolic 72–103; PULSE 78–88; RESP 20–24; TEMP 97.1–99.3; O2SAT 92–95
[2017-07-17] MEDS: RESP: ALBUTEROL 2.5 MG/IPRATROPIUM 0.5 MG NEB (SCH) NEB ×4 (03:36→19:56)
[2017-07-17] MEDS: CHLORHEXIDINE GLUCONATE 2 % 1 PACK (2 CLOTHS) TOP SCH (04:00)
[2017-07-17 05:27] LABS: AUTOMATED NEUTROPHIL # 5.7 TH/MM3 (1.8-7.7); BASOPHIL % 0.2 % (0.0-2.0); EOSINOPHIL # 0.1 TH/MM3 (0-0.4); EOSINOPHIL % 1.7 % (0.0-4.0); HEMATOCRIT 23.8 % (35.0-46.0); HEMOGLOBIN 7.8 GM/DL (11.6-15.3); LYMPH % 15.4 % (9.0-44.0); LYMPHOCYTE # 1.1 TH/MM3 (1.0-4.8); MEAN CELL VOLUME 93.5 FL (80.0-100.0); MEAN CORPUSCULAR HEMOGLOBIN 30.7 PG (27.0-34.0); MEAN CORPUSCULAR HGB CONC 32.9 % (32.0-36.0); MEAN PLATELET VOLUME 8.4 FL (7.0-11.0); MONO % 4.1 % (0.0-8.0); MONOCYTE # 0.3 TH/MM3 (0-0.9); NEUT % 78.6 % (16.0-70.0); PLATELET COUNT 310 TH/MM3 (150-450); RED BLOOD COUNT 2.55 MIL/MM3 (4.00-5.30); RED CELL DISTRIBUTION WIDTH 17.9 % (11.6-17.2); WHITE BLOOD COUNT 7.2 TH/MM3 (4.0-11.0)
[2017-07-17 05:50] LABS: PROTHROMBIN TIME - PATIENT 10.6 SEC (9.8-11.6)
[2017-07-17 06:03] LABS: BICARBONATE 23.3 MEQ/L (21.0-32.0); CALCIUM 7.9 MG/DL (8.5-10.1); CREATININE 0.6 MG/DL (0.50-1.00)
--- NOTE | 2017-07-17 06:48 | RADRPT ---
EXAM DATE/TIME: 07/17/2017 05:57 [facility] COMPARISON: CHEST PA & LAT, July 15, 2017, 12:15. CHEST SINGLE AP, July 11, 2017, 13:35. INDICATIONS : Short of breath, cough, evaluate pneumonia MEDICAL HISTORY : Diabetes mellitus type II. Hypertension pulmonary embolus SURGICAL HISTORY : Tubal ligation. ENCOUNTER: Subsequent ACUITY: 4 - 6 days PAIN SCORE: 0/10 LOCATION: Bilateral chest FINDINGS: A single portable frontal view the chest shows linear areas of parenchymal density within each base. This is improved from the prior study. No effusions. Heart is at the upper limits of normal in terms of size. Bony structures are unremarkable. CONCLUSION: Residual bibasilar atelectasis versus scarring. Sotero Burger Jr., MD on July 17, 2017 at 6:46 Board Certified Radiologist. This report was verified electronically.
[2017-07-17] MEDS: FAMOTIDINE 20 MG/2 ML VIAL IV PUSH SCH ×2 (08:45→20:58)
[2017-07-17] MEDS: POTASSIUM CHLORIDE 10 MEQ CONTROLLED RELEASE TAB PO SCH ×2 (08:46→20:56)
[2017-07-17] MEDS: LORazepam 2 MG TAB PO SCH ×2 (08:46→20:56)
[2017-07-17] MEDS: DOCUSATE SODIUM 50 MG/SENNA 8.6 MG TAB PO SCH ×2 (08:46→20:57)
[2017-07-17] MEDS: SPIRONOLACTONE 50 MG TAB PO SCH (08:46)
[2017-07-17] MEDS: AZITHROMYCIN 250 MG TAB PO SCH (08:46)
[2017-07-17] MEDS: THIAMINE HCL 100 MG TAB PO SCH (08:47)
[2017-07-17] MEDS: SODIUM CHLORIDE 0.9% FLUSH 10 ML FLUSH IV FLUSH SCH ×2 (08:47→20:58)
[2017-07-17] MEDS ORDERED: LORazepam 2 MG TAB PO SCH (09:00)
[2017-07-17] MEDS ORDERED: OXYGENDME NAS.CANULA (11:26)
--- NOTE | 2017-07-17 13:42 | HHI.PR ---
Subjective Remarks Still with shortness of breath and nonproductive cough. She is saturating well on 3 L by nasal cannula. Feels deconditioned, physical therapy recommends PT at home and a walker. Order a walker so she can have a discharge. Also failed oxygen test was needed oxygen at discharge. Patient with diarrhea. No nausea or vomiting able to eat. No fever or chills overnight. No chest pain. Complaints of buttocks wounds knots healing and creams doesn't help much. She has diarrhea Objective Vitals Vital Signs Date Time Temp Pulse Resp B/P (MAP) Pulse Ox O2 Delivery O2 Flow Rate FiO2 07/17/17 12:44 97.3 88 20 139/83 (101) 95 07/17/17 08:27 98.4 78 22 142/94 (110) 92 07/17/17 04:00 83 07/17/17 04:00 97.1 82 24 150/103 (119) 94 07/17/17 03:37 Nasal Cannula 2.00 07/17/17 00:00 99.3 85 24 162/96 (118) 94 07/16/17 23:00 85 07/16/17 21:00 Nasal Cannula 2.00 07/16/17 20:03 95 07/16/17 20:00 97.3 87 24 150/88 (108) 94 07/16/17 17:06 98.5 91 22 135/85 (102) 95 07/16/17 16:11 98 Nasal Cannula 2.00 I/O 07/16/17 07/16/17 07/16/17 07/17/17 07/17/17 07/17/17 07:00 15:00 23:00 07:00 15:00 23:00 Intake Total 240 ml 480 ml Output Total 401 ml Balance 240 ml 480 ml -401 ml Intake Oral 240 ml 480 ml Output Urine Total 201 ml Stool Total 200 ml # Voids 3 3 4 5 # Bowel Movements 1 2 2 Result Diagram: 07/17/17 0509 07/17/17 0509 Imaging Last Impressions Chest X-Ray 07/17/17 0600 Signed Impressions: Service Date/Time: Monday, July 17, 2017 05:57 - CONCLUSION: Residual bibasilar atelectasis versus scarring. Sotero Burger Jr., MD CT Angiography 07/14/17 0000 Signed Impressions: Service Date/Time: Friday, July 14, 2017 09:34 - CONCLUSION: 1. No pulmonary embolus. 2. Patchy consolidation or atelectasis in the upper lobes and lower lobes. 3. Minimal left effusion. 4. Hepatic steatosis with suspected hepatic enlargement. Marques Sebastian MD Pelvis Ultrasound 07/12/17 0000 Signed Impressions: Service Date/Time: June 09:52 - CONCLUSION: 1. Significant endometrial thickening. 2. No other significant abnormality. Ruddy Jose MD Head CT 07/11/17 0000 Signed Impressions: Service Date/Time: Tuesday, July 11, 2017 14:24 - CONCLUSION: 1. Stable CT scan of the brain without evidence of acute infarct, hemorrhage, mass or edema. 2. Left temporal and occipital encephalomalacia; unchanged. 3. Left- sided craniotomy defect again noted. Ruddy Jose MD Abdomen/Pelvis CT 07/11/17 0000 Signed Impressions: Service Date/Time: Tuesday, July 11, 2017 14:36 - CONCLUSION: 1. Prominent diffusely decreased hepatic density and hepatomegaly with liver measuring up to 28 cm. Findings are consistent with severe hepatic steatosis or medical liver disease. 2. Mild splenomegaly with spleen measuring up to 14.5 cm. 3. No acute abnormality in the abdomen or pelvis. 4. Normal appendix. 5. Small fat containing periumbilical anterior abdominal wall hernia. 6. Slightly prominent left ovary likely due to ovarian cysts. This is within normal limits for patient's stated age. Ultrasound examination may be performed if there is significant clinical concern. Myron Mckeon MD Objective Remarks GENERAL: Young white female, obese SKIN: Buttocks examined with zipper trimmer in the room, see mild bilateral gluteal fold excoriations with no bleeding noted CARDIOVASCULAR: Regular rate and rhythm. RESPIRATORY: Lung sounds are remarkably clear bilaterally with unlabored respiratory effort GASTROINTESTINAL: Abdomen soft, non-tender, nondistended. Hepatic and splenic margins not palpable. MUSCULOSKELETAL: Extremities without clubbing, cyanosis, or edema. No obvious deformities. NEUROLOGICAL: Awake and alert. No obvious cranial nerve deficits. Motor grossly within normal limits. Five out of 5 muscle strength in the arms and legs. Normal speech. PSYCHIATRIC: Appropriate mood and affect; insight and judgment normal. A/P Assessment and Plan Respiratory insufficiency - I independently reviewed the repeat chest x-ray that was done on 07/13 which showed atypical bilateral infiltrates that look more manufacturers representative of a classic ARDS picture; repeat CXR is pending per radiology physician assistant - CTA negative for embolism - Pulmonology following, appreciate recommendations. Tx for PNA w/ Zithromax. Acute blood loss resulting in anemia - Status post transfusion - now stable. - EGD showing chronic gastritis with no sources of active bleeding, colonoscopy showed one polyp, otherwise unremarkable findings - continue Protonix Loose Diarrhea - Most likely viral enteritis and or secondary to oral prep. Clinically improving with loperamide. Stool WBCs and C. diff negative. Giardia and cryptosporidium pending but are likely to be negative. Buttocks rash, not much improvement. Add tucks. We'll consult wound care. - 2/2 diarrhea, i suspect this is already improving but will try to add on A/D ointment to see if this helps , add tucks as well E Coli UTI - Received Rocephin . Cultures with E coli. Change abx to PO ciprofloxacin Hypokalemia - improving - most likely from GI losses. As urinary calcium excretion is low normal. Continue oral calcium supplements as well as spironolactone. Overall I expect her hypokalemia is improving because her diarrhea is improving. Menorrhagia - pelvic US shows endometrial thickening; IUD recs from obgyn; to f/u as outpt - stable Mild hepatic insufficiency. LFTs, bilirubin improving. - Secondary to alcohol use - autoimmune labs pending per GI orders; so far have been negative Alcohol use - Ativan taper Patient and her mother were extensively counseled on the importance of alcohol cessation to salvage whatever liver function the patient may have left for the rest of her lifetime. DVT ppx: SCDs DC plan: pending improvement poss DC tomorrow if improved. His recommends home with home health. Failed oxygen walking test she needs oxygen at home. Order a walker and oxygen at home, case management is following for discharge plan as well. Discussed with the patient, nurse, mother at bedside Patient was counseled regarding alcohol use at length today. Sakshi Landry MD Jul 17, 2017 13:42
--- NOTE | 2017-07-17 15:34 | HHI.GIFU ---
Subjective Remarks Pt resting in bed in NAD. still with loose stool. eating ok. Objective Vitals I&O Vital Signs Date Time Temp Pulse Resp B/P (MAP) Pulse Ox O2 Delivery O2 Flow Rate FiO2 07/17/17 12:44 97.3 88 20 139/83 (101) 95 07/17/17 08:27 98.4 78 22 142/94 (110) 92 07/17/17 04:00 83 07/17/17 04:00 97.1 82 24 150/103 (119) 94 07/17/17 03:37 Nasal Cannula 2.00 07/17/17 00:00 99.3 85 24 162/96 (118) 94 07/16/17 23:00 85 07/16/17 21:00 Nasal Cannula 2.00 07/16/17 20:03 95 07/16/17 20:00 97.3 87 24 150/88 (108) 94 07/16/17 17:06 98.5 91 22 135/85 (102) 95 07/16/17 16:11 98 Nasal Cannula 2.00 I/O 07/16/17 07/16/17 07/16/17 07/17/17 07/17/17 07/17/17 07:00 15:00 23:00 07:00 15:00 23:00 Intake Total 240 ml 480 ml 480 ml Output Total 401 ml Balance 240 ml 480 ml 79 ml Intake Oral 240 ml 480 ml 480 ml Output Urine Total 201 ml Stool Total 200 ml # Voids 3 3 4 5 # Bowel Movements 1 2 2 Laboratory Laboratory Tests Test 07/17/17 05:09 White Blood Count 7.2 Red Blood Count 2.55 Hemoglobin 7.8 Hematocrit 23.8 Mean Corpuscular Volume 93.5 Mean Corpuscular Hemoglobin 30.7 Mean Corpuscular Hemoglobin Concent 32.9 Red Cell Distribution Width 17.9 Platelet Count 310 Mean Platelet Volume 8.4 Neutrophils (%) (Auto) 78.6 Lymphocytes (%) (Auto) 15.4 Monocytes (%) (Auto) 4.1 Eosinophils (%) (Auto) 1.7 Basophils (%) (Auto) 0.2 Neutrophils # (Auto) 5.7 Lymphocytes # (Auto) 1.1 Monocytes # (Auto) 0.3 Eosinophils # (Auto) 0.1 Basophils # (Auto) 0.0 CBC Comment DIFF FINAL Differential Comment Prothrombin Time 10.6 Prothromb Time International Ratio 1.0 Activated Partial Thromboplast Time 22.2 Blood Urea Nitrogen 4 Creatinine 0.60 Random Glucose 113 Calcium Level 7.9 Sodium Level 141 Potassium Level 4.9 Chloride Level 108 Carbon Dioxide Level 23.3 Anion Gap 10 Estimat Glomerular Filtration Rate 120 Date/Time Source Procedure Growth Status 07/14/17 11:30 Stool Stool Cryptosporidium Exam Pending Resulted 07/14/17 11:30 Stool Stool Stool Pus (FELIPE) - Final NO WBC'S SEEN Resulted 07/14/17 11:30 Stool Stool Giardia Antigen (FELIPE) Pending Resulted 07/15/17 11:35 Sputum Expectorated Sputum Gram Stain - Final Complete 07/15/17 11:35 Sputum Culture - Final Beta Strep Not Group A Complete 07/14/17 09:00 Urine Clean Catch Urine Culture - Final Escherichia Coli Enterococcus Faecium Complete Physical Exam HEENT: PERRL; normocephalic; atraumatic; + icterus CHEST: CTA CARDIAC: RRR +murmur ABDOMEN: Soft,distended, right upper quadrant tenderness; no hepatosplenomegaly ; bowel sounds are present in all four quadrants. EXTREMITIES: No clubbing, cyanosis, or edema. SKIN: Normal; no rash; + jaundice. Mild TELEVISION PRESENTER: mildly lethargic Assessment and Plan Plan ASSESSMENT - anemia - hgb 4.4 on admission, up to 8.4 after 4x PRBC. normocytic. some BRBPR nothing profuse. pt admits vaginal bleeding HH stable since yesterday - BRBPR - recent hx blood on wipe after BM. EGD 07/14/18, chronic gastritis Colonoscopy 07/14/18. 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 DF <32. MELD 14. hep panel negative, still complains of some mild upper quadrant pain CT showed hepatosplenomegaly, fatty liver. no significant coagulopathy at this time. low albumin 07/11/[address], profuse decreased hepatic density and hepatomegaly probable severe hepatic steatosis, mild splenomegaly small umbilical abdominal wall hernia. thus far liver w/u unremarkable LFTs improving PLAN - await pathology colon polyp - etoh cessation, encouraged and discussed with patient - monitor labs, - notify GI of active bleeding This pt seen by myself and DR Snider note is written on his behalf Pili Tompkins Jul 17, 2017 15:34
[2017-07-17] MEDS ORDERED: ALDA50TA2 PO (16:32)
[2017-07-17] MEDS ORDERED: THIA100 PO (16:32)
[2017-07-17] MEDS ORDERED: WALKER WHEELS/F1 MIS (16:32)
--- NOTE | 2017-07-17 16:33 | HHI.FF ---
Face to Face Verification Diagnosis: (1) Liver failure (2) Anemia (3) Acute respiratory failure with hypercapnia Physical Therapy Order: Evaluate and Treat Home Health Nursing Order: Medical education Signs/symptoms of disease process Oxygen administration education Medication education-adverse effect Nursing assessment with vital signs I have seen patient Maria T Markham on 07/17/17. My clinical findings support the need for the requested home health care services because: Ltd mobility - disease progression Patient has SOB I certify that my clinical findings support that this patient is homebound because: Post-op weakness Unsteady gait/balance Sakshi Landry MD Jul 17, 2017 16:33
[2017-07-17] MEDS ORDERED: WITCH HAZEL 50%/GLYCERIN 12.5% 40 PAD JAR TOPICAL PRN (17:00)
--- NOTE | 2017-07-17 20:31 | HHI.PR ---
Subjective Remarks Feels Better. Less cough .On O2 at 2 L.No wheezing. No fever. CXR shows Basal scarring. Objective Vital Signs Date Time Temp Pulse Resp B/P (MAP) Pulse Ox O2 Delivery O2 Flow Rate FiO2 07/17/17 19:58 93 Nasal Cannula 2.00 07/17/17 19:52 80 07/17/17 16:21 98.1 82 20 136/88 (104) 93 07/17/17 12:44 97.3 88 20 139/83 (101) 95 07/17/17 08:27 98.4 78 22 142/94 (110) 92 07/17/17 04:00 83 07/17/17 04:00 97.1 82 24 150/103 (119) 94 07/17/17 03:37 Nasal Cannula 2.00 07/17/17 00:00 99.3 85 24 162/96 (118) 94 07/16/17 23:00 85 07/16/17 21:00 Nasal Cannula 2.00 I/O 07/16/17 07/16/17 07/16/17 07/17/17 07/17/17 07/17/17 07:00 15:00 23:00 07:00 15:00 23:00 Intake Total 240 ml 480 ml 480 ml Output Total 401 ml Balance 240 ml 480 ml 79 ml Intake Oral 240 ml 480 ml 480 ml Output Urine Total 201 ml Stool Total 200 ml # Voids 3 3 4 5 # Bowel Movements 1 2 2 Result Diagram: 07/17/17 0509 07/17/17 0509 Objective Remarks GENERAL: This is a moderately overweight young white female who is not dyspneic at rest. HEAD, EYES, EARS, NOSE, THROAT: Head normocephalic. The pupils are reactive. Tongue is dry. Throat is clear NECK: The neck is supple. No bruits. No thyroid enlargement. No lymphadenopathy. CHEST: Expiratory wheezes throughout both lung hall and no Crackles HEART: Heart sounds are regular. S1 and S2. No murmur. ABDOMEN: Abdomen soft and obese without masses. No organomegaly or tenderness. The bowel sounds are active. EXTREMITIES: No lesions. No edema. No calf tenderness. NEUROLOGIC: Reflexes are 1+. No gross motor deficits. Cranial nerves are grossly intact. RECTAL: Rectal exam is deferred. Assessment and Plan Assessment and Plan IMPRESSION: 1. Upper lobe pneumonia with hypoxemia. 2. Reactive airway disease. 3. Severe anemia with blood loss resolved. 4. Alcohol-induced liver disease. 5. Hypokalemia. Plan : 1. Continue Rocephin/ and D/C Zithromax 2. Nebs qid , duoneb. 3. O2 at 2 L. 4. Arrange home O2 . 5. IS q2 h bedside 7. Add Symbicort 160/4.5 mcg, 2 puffs bid Abimael Gonzalez MD Jul 17, 2017 20:31
[2017-07-17] MEDS: cefTRIAXone INJ 1,000 MG in SODIUM CHLORIDE 0.9% INJ 100 ML IV SCH (20:53)
[2017-07-18] VITALS (9 sets, daily range): BP systolic 133–146; BP diastolic 76–89; PULSE 80–93; RESP 20–24; TEMP 97.9–99.3; O2SAT 90–95
[2017-07-18] MEDS: NS + KCL 40 MEQ INJ 1,000 ML IV SCH (00:04)
[2017-07-18 03:50] LABS: MITOCHONDRIAL ABS LESS THAN 20.0 U (<=20.0)
[2017-07-18] MEDS: RESP: ALBUTEROL 2.5 MG/IPRATROPIUM 0.5 MG NEB (SCH) NEB ×2 (03:58→09:00)
[2017-07-18] MEDS: CHLORHEXIDINE GLUCONATE 2 % 1 PACK (2 CLOTHS) TOP SCH (04:00)
[2017-07-18] MEDS: DOCUSATE SODIUM 50 MG/SENNA 8.6 MG TAB PO SCH (08:39)
[2017-07-18] MEDS: SPIRONOLACTONE 50 MG TAB PO SCH (08:39)
[2017-07-18] MEDS: LORazepam 2 MG TAB PO SCH (08:39)
[2017-07-18] MEDS: FAMOTIDINE 20 MG/2 ML VIAL IV PUSH SCH (08:39)
[2017-07-18] MEDS: AZITHROMYCIN 250 MG TAB PO SCH (08:40)
[2017-07-18] MEDS: POTASSIUM CHLORIDE 10 MEQ CONTROLLED RELEASE TAB PO SCH (08:40)
[2017-07-18] MEDS: THIAMINE HCL 100 MG TAB PO SCH (08:40)
[2017-07-18] MEDS: SODIUM CHLORIDE 0.9% FLUSH 10 ML FLUSH IV FLUSH SCH (08:40)
--- NOTE | 2017-07-18 10:51 | HHI.DS ---
Discharge Summary Admission Date Jul 11, 2017 at 14:51 Discharge Date: Jul 19, 2017 Admitting Diagnosis Syncope, Hypovolemia, Severe Anemia, Liver disease. (1) Acute respiratory failure with hypercapnia ICD Code: J96.02 - Acute respiratory failure with hypercapnia Status: Acute (2) Hyperglycemia ICD Code: R73.9 - Hyperglycemia Status: Acute (3) Diabetes mellitus ICD Code: E11.9 - Diabetes mellitus Status: Acute (4) PE (pulmonary embolism) ICD Code: I26.99 - Other pulmonary embolism without acute cor pulmonale Status: Acute (5) Head injury, unspecified ICD Code: S09.90XA - Head injury, unspecified Status: Acute (6) Infection of craniotomy plate ICD Code: T84.7XXA - Infection of craniotomy plate Status: Acute (7) ABDIAS (acute kidney injury) ICD Code: N17.9 - ABDIAS (acute kidney injury) Status: Acute (8) Metabolic acidosis ICD Code: E87.2 - Metabolic acidosis Status: Acute (9) Altered mental status ICD Code: R41.82 - Altered mental status Status: Acute (10) Hyperkalemia ICD Code: E87.5 - Hyperkalemia Status: Acute Procedures none Brief History - From Admission History of Present Illness HPI 27-year-old female who presented to the ER with history of vagina bleeding from her menstrual cycle going on for about 2 weeks and progressive weakness and dizziness for the last 3 days. She had a syncopal episode while in the waiting area. She denied any abdominal pain. Patient was evaluated in the ER and was found to be severely anemic with hemoglobin of 4.4 and was tachycardic with heart rate in the 120s. She received fluid boluses and was ordered 2 units PRBCs in the ER which were initiated. CT abdomen pelvis done in the ER reveals an enlarged liver and spleen. Patient reportedly drinks at least half a bottle of vodka every day for many years. Her last drink was this morning. Patient also has a history of traumatic brain injury and has had a craniotomy before as well as a history of blood clot in her lungs previously. Patient was accepted for admission by critical care medicine service. I evaluated the patient while she was in the ER. At the time of my evaluation patient appeared to be resting in the ER stretcher and had an episode of nausea and vomiting however was otherwise not in any respiratory distress and denied any chest pain palpitations fevers or chills she did admit to having rectal bleeding with straining off and on for a while. She denied any melena or hematemesis. She denies any previous history of liver disease or bleeding issues. She has not seen a physician for at least 2 years. PFSH Past Medical History Asthma: No Anxiety: Yes Depression: Yes Cancer: No Cardiovascular Problems: No Chest Pain: Yes Cerebrovascular Accident: No Diabetes: Yes Diminished Hearing: No Endocrine: No Genitourinary: No Headaches: Yes Hepatitis: No Hiatal Hernia: No Immune Disorder: No Implanted Vascular Access Dvce: Yes (PICC LINE AT ONE TIME IN LEFT ARM) Musculoskeletal: No Neurologic: Yes (migraines) Psychiatric: Yes (ANXIETY; PANIC ATTACKS; DOES NOT LIKE TO BE ALONE SINCE THE VEHICLE TRAUMA) Reproductive: No Respiratory: Yes (hx pulmonary embolism) Integumentary: Yes Immunizations Current: Yes Migraines: Yes Seizures: Yes Thyroid Disease: No : 2 Para: 2 Tubal Ligation: Yes Past Surgical History Abdominal Surgery: No AICD: No Body Medical Devices: prosthetic bone flap Cardiac Surgery: No Section: Yes Ear Surgery: No Endocrine Surgery: No Eye Surgery: No Gynecologic Surgery: Yes (c sections x 2) Joint Replacement: No Neurologic Surgery: Yes (5 brain surgeries) Oral Surgery: No Pacemaker: No Thoracic Surgery: No Other Surgery: Yes (CRANIOTOMY 2008/ PLATE REMOVED 2013) Social History Alcohol Use: Yes (SOCIALLY) Tobacco Use: Yes (3/4PPD) Substance Use: No Allergies-Medications (Allergen,Severity, Reaction): Coded Allergies: No Known Allergies (Unverified , 04/12/17) Reported Meds & Prescriptions Reported Meds & Active Scripts Active No Active Prescriptions or Reported Medications Review of Systems Except as stated in HPI: all other systems reviewed are Neg CBC/BMP: 07/17/17 0509 07/17/17 0509 Significant Findings Laboratory Tests Test 07/16/17 05:38 07/17/17 05:09 Red Blood Count 2.65 MIL/MM3 (4.00-5.30) 2.55 MIL/MM3 (4.00-5.30) Hemoglobin 7.7 GM/DL (11.6-15.3) 7.8 GM/DL (11.6-15.3) Hematocrit 24.8 % (35.0-46.0) 23.8 % (35.0-46.0) Mean Corpuscular Hemoglobin Concent 30.9 % (32.0-36.0) Red Cell Distribution Width 17.7 % (11.6-17.2) 17.9 % (11.6-17.2) Neutrophils (%) (Auto) 77.2 % (16.0-70.0) 78.6 % (16.0-70.0) Activated Partial Thromboplast Time 23.6 SEC (24.3-30.1) 22.2 SEC (24.3-30.1) Blood Urea Nitrogen 5 MG/DL (7-18) 4 MG/DL (7-18) Random Glucose 122 MG/DL (74-106) 113 MG/DL (74-106) Albumin 2.2 GM/DL (3.4-5.0) Calcium Level 7.8 MG/DL (8.5-10.1) 7.9 MG/DL (8.5-10.1) Alkaline Phosphatase 159 U/L (45-117) Aspartate Amino Transf (AST/SGOT) 63 U/L (15-37) Total Bilirubin 2.4 MG/DL (0.2-1.0) Chloride Level 110 MEQ/L (98-107) 108 MEQ/L (98-107) Imaging Last Impressions Chest X-Ray 07/17/17 0600 Signed Impressions: Service Date/Time: Monday, July 17, 2017 05:57 - CONCLUSION: Residual bibasilar atelectasis versus scarring. Sotero Burger Jr., MD CT Angiography 07/14/17 0000 Signed Impressions: Service Date/Time: Friday, July 14, 2017 09:34 - CONCLUSION: 1. No pulmonary embolus. 2. Patchy consolidation or atelectasis in the upper lobes and lower lobes. 3. Minimal left effusion. 4. Hepatic steatosis with suspected hepatic enlargement. Marques Sebastian MD Pelvis Ultrasound 07/12/17 0000 Signed Impressions: Service Date/Time: June 09:52 - CONCLUSION: 1. Significant endometrial thickening. 2. No other significant abnormality. Ruddy Jose MD Head CT 07/11/17 0000 Signed Impressions: Service Date/Time: Tuesday, July 11, 2017 14:24 - CONCLUSION: 1. Stable CT scan of the brain without evidence of acute infarct, hemorrhage, mass or edema. 2. Left temporal and occipital encephalomalacia; unchanged. 3. Left- sided craniotomy defect again noted. Ruddy Jose MD Abdomen/Pelvis CT 07/11/17 0000 Signed Impressions: Service Date/Time: Tuesday, July 11, 2017 14:36 - CONCLUSION: 1. Prominent diffusely decreased hepatic density and hepatomegaly with liver measuring up to 28 cm. Findings are consistent with severe hepatic steatosis or medical liver disease. 2. Mild splenomegaly with spleen measuring up to 14.5 cm. 3. No acute abnormality in the abdomen or pelvis. 4. Normal appendix. 5. Small fat containing periumbilical anterior abdominal wall hernia. 6. Slightly prominent left ovary likely due to ovarian cysts. This is within normal limits for patient's stated age. Ultrasound examination may be performed if there is significant clinical concern. Myron Mckeon MD PE at Discharge GENERAL: Young white female, obese SKIN: Buttocks examined with superintendent menagerie in the room, see mild bilateral gluteal fold excoriations with no bleeding noted CARDIOVASCULAR: Regular rate and rhythm. RESPIRATORY: Lung sounds are remarkably clear bilaterally with unlabored respiratory effort GASTROINTESTINAL: Abdomen soft, non-tender, nondistended. Hepatic and splenic margins not palpable. MUSCULOSKELETAL: Extremities without clubbing, cyanosis, or edema. No obvious deformities. NEUROLOGICAL: Awake and alert. No obvious cranial nerve deficits. Motor grossly within normal limits. Five out of 5 muscle strength in the arms and legs. Normal speech. PSYCHIATRIC: Appropriate mood and affect; insight and judgment normal. Hospital Course Respiratory insufficiency - Chest x-ray 07/13 reviewed with atypical bilateral infiltrates that look more representative phlebotomy services of a classic ARDS picture; repeat CXR residual atelectasis. - CTA negative for embolism - Pulmonology following, appreciate recommendations. Continue tx for PNA rocephin /azithro Acute blood loss resulting in anemia - Status post transfusion - now stable. - EGD showing chronic gastritis with no sources of active bleeding, colonoscopy showed one polyp, otherwise unremarkable findings - continue Protonix Loose Diarrhea - Most likely viral enteritis and or secondary to oral prep. Clinically improving with loperamide. Stool WBCs and C. diff negative. Giardia and cryptosporidium pending but are likely to be negative. Buttocks rash, not much improvement. Add tucks. We'll consult wound care. - 2/2 diarrhea, i suspect this is already improving but will try to add on A/D ointment to see if this helps , add tucks as well E Coli UTI - Received Rocephin . Cultures with E coli. Change abx to PO ciprofloxacin Hypokalemia - improving - most likely from GI losses. As urinary calcium excretion is low normal. Continue oral calcium supplements as well as spironolactone. Overall I expect her hypokalemia is improving because her diarrhea is improving. Menorrhagia - pelvic US shows endometrial thickening; IUD recs from obgyn; to f/u as outpt - stable Mild hepatic insufficiency. LFTs, bilirubin improving. - Secondary to alcohol use - autoimmune labs pending per GI orders; so far have been negative Alcohol use - Ativan taper Patient and her mother were extensively counseled on the importance of alcohol cessation to salvage whatever liver function the patient may have left for the rest of her lifetime. DVT ppx: SCDs DC plan: pending improvement poss DC tomorrow if improved. His recommends home with home health. Failed oxygen walking test she needs oxygen at home. Order a walker and oxygen at home, case management is following for discharge plan as well. Discussed with the patient, nurse, mother at bedside Patient was counseled regarding alcohol use at length. DC Patient improving plan to DC. Failed O2 walking test to have O2 at home. CM is following for DC plan. Pt Condition on Discharge: Stable Discharge Disposition: Disch w/ Home Health Serv Discharge Time: > 30 minutes Discharge Instructions DIET: Follow Instructions for: Heart Healthy Diet, Diabetic Diet Activities you can perform: Regular-No Restrictions Follow up Referrals: Appointment for Follow Up Gastroenterology - 2 Weeks PCP Follow-up - 2-3 Days PCP Follow-up Pulmonology - 1 Week with Abimael Gonzalez MD Pulmonology New Medications: Albuterol 18 GM Inh (Ventolin Hfa 18 GM Inh) 90 Mcg/Act Aer 2 PUFF INH Q4H PRN for SHORTNESS OF BREATH, #1 INHALER 0 Refills Budesonide-Formoterol Inh (Symbicort Inh) 160-4.5 Mcg/Act Aero 2 PUFF INH Q12HR, #1 INHALER 0 Refills Cefuroxime (Ceftin) 250 Mg Tab 250 MG PO BID for infection, #20 TAB Lactobacillus Acidophilus (Lactinex) 1 Chew 1 TAB CHEW BID for Nutritional Supplement, #60 TAB 0 Refills Oxygen (O2) (Oxygen (O2)) Device LITER KANE.CANULA CONTINUOUS for Prevent Hypoxemia, #2 Oxygen Concentrator Portable Gaseous 2 L/min via Nasal Canula Continuous For 99 months Walker with Front Wheels (Walker with Front Wheels) 1 Mis Mis EA .ROUTE DIRECTED, #1 0 Refills Spironolactone (Aldactone) 50 Mg Tab 50 MG PO DAILY for Blood Pressure Management, #30 TAB Thiamine HCl (Gnp Vitamin B-1) 100 Mg Tab 100 MG PO DAILY for Nutritional Supplement, #30 TAB Sakshi Landry MD Jul 18, 2017 10:51
--- NOTE | 2017-07-18 10:52 | HHI.FF ---
Face to Face Verification Diagnosis: (1) Acute respiratory failure with hypercapnia (2) Liver failure (3) Anemia (4) Shock (5) Syncope (6) Hyperglycemia (7) Diabetes mellitus Home Health Nursing Order: Medical education Signs/symptoms of disease process Oxygen administration education Medication education-adverse effect Nursing assessment with vital signs I have seen patient Maria T Markham on 07/18/17. My clinical findings support the need for the requested home health care services because: Ltd mobility - disease progression Patient has SOB I certify that my clinical findings support that this patient is homebound because: Post-op weakness Hx COPD- exertion dyspnea/weakness Unsteady gait/balance Sakshi Landry MD Jul 18, 2017 10:52
--- NOTE | 2017-07-18 10:53 | HHI.PR ---
Subjective Remarks In bed feels improving No fever or chills. No cough. . No wheezing, no chest pain or sob. Objective Vitals Vital Signs Date Time Temp Pulse Resp B/P (MAP) Pulse Ox O2 Delivery O2 Flow Rate FiO2 07/18/17 09:35 84 07/18/17 09:10 3.00 07/18/17 09:02 95 Nasal Cannula 3.00 07/18/17 08:48 Nasal Cannula 3.00 07/18/17 07:34 98.3 84 22 145/76 (99) 90 07/18/17 04:00 97.9 82 24 133/78 (96) 94 07/18/17 00:09 88 07/18/17 00:00 98.3 80 24 146/89 (108) 92 07/17/17 20:58 Nasal Cannula 3.00 07/17/17 20:00 87 07/17/17 20:00 98.8 87 22 127/72 (90) 93 07/17/17 19:58 93 Nasal Cannula 2.00 07/17/17 19:52 80 07/17/17 16:21 98.1 82 20 136/88 (104) 93 07/17/17 12:44 97.3 88 20 139/83 (101) 95 I/O 07/17/17 07/17/17 07/17/17 07/18/17 07/18/17 07/18/17 07:00 15:00 23:00 07:00 15:00 23:00 Intake Total 480 ml 100 ml 1282 ml Output Total 401 ml Balance 79 ml 100 ml 1282 ml Intake Oral 480 ml IV Total 100 ml 1282 ml Output Urine Total 201 ml Stool Total 200 ml # Voids 5 4 4 # Bowel Movements 2 1 1 Result Diagram: 07/17/17 0509 07/17/17 0509 Imaging Last Impressions Chest X-Ray 07/17/17 0600 Signed Impressions: Service Date/Time: Monday, July 17, 2017 05:57 - CONCLUSION: Residual bibasilar atelectasis versus scarring. Sotero Burger Jr., MD CT Angiography 07/14/17 0000 Signed Impressions: Service Date/Time: Friday, July 14, 2017 09:34 - CONCLUSION: 1. No pulmonary embolus. 2. Patchy consolidation or atelectasis in the upper lobes and lower lobes. 3. Minimal left effusion. 4. Hepatic steatosis with suspected hepatic enlargement. Marques Sebastian MD Pelvis Ultrasound 07/12/17 Signed Impressions: Service Date/Time: June 09:52 - CONCLUSION: 1. Significant endometrial thickening. 2. No other significant abnormality. Ruddy Jose MD Head CT 07/11/17 Signed Impressions: Service Date/Time: Tuesday, July 11, 2017 14:24 - CONCLUSION: 1. Stable CT scan of the brain without evidence of acute infarct, hemorrhage, mass or edema. 2. Left temporal and occipital encephalomalacia; unchanged. 3. Left- sided craniotomy defect again noted. Ruddy Jose MD Abdomen/Pelvis CT 07/11/17 Signed Impressions: Service Date/Time: Tuesday, July 11, 2017 14:36 - CONCLUSION: 1. Prominent diffusely decreased hepatic density and hepatomegaly with liver measuring up to 28 cm. Findings are consistent with severe hepatic steatosis or medical liver disease. 2. Mild splenomegaly with spleen measuring up to 14.5 cm. 3. No acute abnormality in the abdomen or pelvis. 4. Normal appendix. 5. Small fat containing periumbilical anterior abdominal wall hernia. 6. Slightly prominent left ovary likely due to ovarian cysts. This is within normal limits for patient's stated age. Ultrasound examination may be performed if there is significant clinical concern. Myron Mckeon MD Objective Remarks GENERAL: Young white female, obese SKIN: Buttocks examined with cupola mechanic in the room, see mild bilateral gluteal fold excoriations with no bleeding noted CARDIOVASCULAR: Regular rate and rhythm. RESPIRATORY: Lung sounds are remarkably clear bilaterally with unlabored respiratory effort GASTROINTESTINAL: Abdomen soft, non-tender, nondistended. Hepatic and splenic margins not palpable. MUSCULOSKELETAL: Extremities without clubbing, cyanosis, or edema. No obvious deformities. NEUROLOGICAL: Awake and alert. No obvious cranial nerve deficits. Motor grossly within normal limits. Five out of 5 muscle strength in the arms and legs. Normal speech. PSYCHIATRIC: Appropriate mood and affect; insight and judgment normal. A/P Assessment and Plan Respiratory insufficiency - Chest x-ray 07/13 reviewed with atypical bilateral infiltrates that look more community service representative of a classic ARDS picture; repeat CXR residual atelectasis. - CTA negative for embolism - Pulmonology following, appreciate recommendations. Continue tx for PNA rocephin /azithro Acute blood loss resulting in anemia - Status post transfusion - now stable. - EGD showing chronic gastritis with no sources of active bleeding, colonoscopy showed one polyp, otherwise unremarkable findings - continue Protonix Loose Diarrhea - Most likely viral enteritis and or secondary to oral prep. Clinically improving with loperamide. Stool WBCs and C. diff negative. Giardia and cryptosporidium pending but are likely to be negative. Buttocks rash, not much improvement. Add tucks. We'll consult wound care. - 2/2 diarrhea, i suspect this is already improving but will try to add on A/D ointment to see if this helps , add tucks as well E Coli UTI - Received Rocephin . Cultures with E coli. Change abx to PO ciprofloxacin Hypokalemia - improving - most likely from GI losses. As urinary calcium excretion is low normal. Continue oral calcium supplements as well as spironolactone. Overall I expect her hypokalemia is improving because her diarrhea is improving. Menorrhagia - pelvic US shows endometrial thickening; IUD recs from obgyn; to f/u as outpt - stable Mild hepatic insufficiency. LFTs, bilirubin improving. - Secondary to alcohol use - autoimmune labs pending per GI orders; so far have been negative Alcohol use - Ativan taper Patient and her mother were extensively counseled on the importance of alcohol cessation to salvage whatever liver function the patient may have left for the rest of her lifetime. DVT ppx: SCDs DC plan: pending improvement poss DC tomorrow if improved. His recommends home with home health. Failed oxygen walking test she needs oxygen at home. Order a walker and oxygen at home, case management is following for discharge plan as well. Discussed with the patient, nurse, mother at bedside Patient was counseled regarding alcohol use at length. DC Patient improving plan to DC. Failed O2 walking test to have O2 at home. CM is following for DC plan. Discussed with the patient, nurse, mother at bedside, Sakshi Cerna MD Jul 18, 2017 10:53
[2017-07-18] MEDS ORDERED: LACTCHW3 CHEW (10:55)
[2017-07-18] MEDS ORDERED: CEFU1TAB18 PO (10:55)
--- NOTE | 2017-07-18 14:12 | PD.WCN.NOT ---
Wound Consult Description: Wound consult ordered by for Buttocks Communicated with: Gomez ABDALLA [address] [place] [address], Recommendation: 1) Encourage patient to wear cotton underwear verse incontinent brief. 2) Cleanse buttocks and groin area with warm soap and water rinse and pat dry, Do not scrub or rub skin. 3) Apply thick layer of Calazime mixed with antifungal cream 50/50 to Reddened areas on Buttocks/Groin and skin folds. 4) Encourage patient to shower daily, drying herself well.Avoid fragrant soaps and lotions. Additional Information: Patient was seen today on [address] [place] [address] by lyric writer.Gomez ABDALLA available if needed.Assisted patient to restroom,performed david care dried area well..Patient has mix of moisture and fungal related dermatitis to buttocks and groin area.No open areas noted.Patient has been wearing incontinent brief due to being on menstrual cycle.Encourage patient to discontinue brief and wear cotton underwear with pad.Calazime mixed with antifungal 50/50 applied to Buttocks and groin area.Patient verbalized instant relief. Jace Cano [facility] Jul 18, 2017 14:12
--- NOTE | 2017-07-18 15:31 | HHI.GIFU ---
Subjective Remarks Pt is sitting up in bed, in no apparent distress. Home health agency nurse at bedside discussing with patient plan for home healthcare. Pt is planned to be discharged today with home O2 and walker. She does report some nausea, denies vomiting. Reports some right sided abdominal pain. Objective Vitals I&O Vital Signs Date Time Temp Pulse Resp B/P (MAP) Pulse Ox O2 Delivery O2 Flow Rate FiO2 07/18/17 12:54 88 07/18/17 11:36 99.2 88 20 134/80 (98) 94 07/18/17 09:35 84 07/18/17 09:10 3.00 07/18/17 09:02 95 Nasal Cannula 3.00 07/18/17 08:48 Nasal Cannula 3.00 07/18/17 07:34 98.3 84 22 145/76 (99) 90 07/18/17 04:00 97.9 82 24 133/78 (96) 94 07/18/17 00:09 88 07/18/17 00:00 98.3 80 24 146/89 (108) 92 07/17/17 20:58 Nasal Cannula 3.00 07/17/17 20:00 87 07/17/17 20:00 98.8 87 22 127/72 (90) 93 07/17/17 19:58 93 Nasal Cannula 2.00 07/17/17 19:52 80 07/17/17 16:21 98.1 82 20 136/88 (104) 93 I/O 07/17/17 07/17/17 07/17/17 07/18/17 07/18/17 07/18/17 06:59 14:59 22:59 06:59 14:59 22:59 Intake Total 480 ml 100 ml 1282 ml Output Total 401 ml Balance 79 ml 100 ml 1282 ml Intake Oral 480 ml IV Total 100 ml 1282 ml Output Urine Total 201 ml Stool Total 200 ml # Voids 5 4 4 # Bowel Movements 2 1 1 Laboratory Date/Time Source Procedure Growth Status 07/14/17 11:30 Stool Stool Cryptosporidium Exam - Final NEGATIVE - NO CRYPTOSPORIDIUM ANTIGEN... Complete 07/14/17 11:30 Stool Stool Stool Pus (FELIPE) - Final NO WBC'S SEEN Complete 07/14/17 11:30 Stool Stool Giardia Antigen (FELIPE) - Final NEGATIVE - NO GIARDIA ANTIGEN DETECTE... Complete 07/15/17 11:35 Sputum Expectorated Sputum Gram Stain - Final Complete 07/15/17 11:35 Sputum Culture - Final Beta Strep Not Group A Complete 07/14/17 09:00 Urine Clean Catch Urine Culture - Final Escherichia Coli Enterococcus Faecium Complete Imaging Last Impressions Chest X-Ray 07/17/17 0600 Signed Impressions: Service Date/Time: Monday, July 17, 2017 05:57 - CONCLUSION: Residual bibasilar atelectasis versus scarring. Sotero Burger Jr., MD CT Angiography 07/14/17 0000 Signed Impressions: Service Date/Time: Friday, July 14, 2017 09:34 - CONCLUSION: 1. No pulmonary embolus. 2. Patchy consolidation or atelectasis in the upper lobes and lower lobes. 3. Minimal left effusion. 4. Hepatic steatosis with suspected hepatic enlargement. Marques Sebastian MD Pelvis Ultrasound 07/12/17 0000 Signed Impressions: Service Date/Time: June 09:52 - CONCLUSION: 1. Significant endometrial thickening. 2. No other significant abnormality. Ruddy Jose MD Head CT 07/11/17 0000 Signed Impressions: Service Date/Time: Tuesday, July 11, 2017 14:24 - CONCLUSION: 1. Stable CT scan of the brain without evidence of acute infarct, hemorrhage, mass or edema. 2. Left temporal and occipital encephalomalacia; unchanged. 3. Left- sided craniotomy defect again noted. Ruddy Jose MD Abdomen/Pelvis CT 07/11/17 0000 Signed Impressions: Service Date/Time: Tuesday, July 11, 2017 14:36 - CONCLUSION: 1. Prominent diffusely decreased hepatic density and hepatomegaly with liver measuring up to 28 cm. Findings are consistent with severe hepatic steatosis or medical liver disease. 2. Mild splenomegaly with spleen measuring up to 14.5 cm. 3. No acute abnormality in the abdomen or pelvis. 4. Normal appendix. 5. Small fat containing periumbilical anterior abdominal wall hernia. 6. Slightly prominent left ovary likely due to ovarian cysts. This is within normal limits for patient's stated age. Ultrasound examination may be performed if there is significant clinical concern. Myron Mckeon MD Physical Exam HEENT:Normocephalic; atraumatic; CHEST: CTA CARDIAC: RRR +murmur ABDOMEN: Soft,distended, mild right upper quadrant tenderness; bowel sounds active x 4 EXTREMITIES: No clubbing, cyanosis, or edema. SKIN: Normal; no rash; (+) jaundice NURSING UNIT COORDINATOR: Alert and oriented x 3 Assessment and Plan Plan ASSESSMENT - Anemia - hgb 4.4 on admission, up to 8.4 after 4x PRBC. normocytic. some BRBPR nothing profuse. Pt did admit vaginal bleeding. H/H from yesterday 7.8. No labs from today. - BRBPR - S/P EGD 07/14/18, chronic gastritis Colonoscopy 07/14/18. small flat polyp was found in the sigmoid colon; polypectomy was performed with cold forceps Retroflexed views revealed no abnormalities. Pathology (stomach, antrum)- Gastric antral mucosa without significant histologic abnormality. Negative for H. Pylori. (Sigmoid polyp) Tubular adenoma- colonic mucosa without significant histologic abnormality. -Elevated LFTs, jaundice, abnormal imaging - long standing heavy ETOH consumption, likely etoh hepatitis, could have cirrhosis. DF <32. MELD 14. hep panel negative, still complains of some mild upper quadrant pain07/11/[address], profuse decreased hepatic density and hepatomegaly probable severe hepatic steatosis, mild splenomegaly small umbilical abdominal wall hernia. thus far liver w/u unremarkable LFTs improving. PLAN - Repeat colonoscopy in 5 years - Repeat EGD as needed - PPI - Supportive care - Pt is to be discharged today per attending - Follow up with [facility] in 1-2 weeks after discharge Pt has been seen and examined by myself and Dr. Snider and this note is written on his behalf Miladys Aguayo Jul 18, 2017 15:31
[2017-07-18] MEDS ORDERED: VENTAER INH (16:01)
[2017-07-18] MEDS ORDERED: SYMB160A INH (16:01)
[2017-07-19] MEDS ORDERED: PANTOPRAZOLE SOD 40 MG DELAYED RELEASE TAB PO SCH (09:00)
== END 2017-07-18 17:03 | disposition home health service (06) | DRG 811 ==
LOC: NEPE 12:40 → NEDA 14:51 → HIMW 17:06 → N05B 07-12 17:51
PROVIDERS: ADMIT Hospitalist; ATTEND Hospitalist
PROC: 30233N1 Transfusion of Nonautologous Red Blood Cells into Peripheral Vein, Percutaneous Approach (ICD-10-PCS; principal; 2017-07-11)
PROC: 0DBN8ZX Excision of Sigmoid Colon, Via Natural or Artificial Opening Endoscopic, Diagnostic (ICD-10-PCS; 2017-07-14)
PROC: 0DB68ZX Excision of Stomach, Via Natural or Artificial Opening Endoscopic, Diagnostic (ICD-10-PCS; 2017-07-14 15:35)
DX: D62 Acute posthemorrhagic anemia (principal); J18.9 Pneumonia, unspecified organism; J80 Acute respiratory distress syndrome; K29.51 Unspecified chronic gastritis with bleeding; K70.10 Alcoholic hepatitis without ascites; K72.10 Chronic hepatic failure without coma; K74.60 Unspecified cirrhosis of liver; K90.9 Intestinal malabsorption, unspecified; Z68.41 Body mass index [BMI] 40.0-44.9, adult; E11.65 Type 2 diabetes mellitus with hyperglycemia; N39.0 Urinary tract infection, site not specified; E83.39 Other disorders of phosphorus metabolism; D12.5 Benign neoplasm of sigmoid colon; E83.51 Hypocalcemia; E66.01 Morbid (severe) obesity due to excess calories; N92.0 Excessive and frequent menstruation with regular cycle; R00.0 Tachycardia, unspecified; E86.1 Hypovolemia; E87.6 Hypokalemia; R79.89 Other specified abnormal findings of blood chemistry; K43.9 Ventral hernia without obstruction or gangrene; A08.4 Viral intestinal infection, unspecified; F17.210 Nicotine dependence, cigarettes, uncomplicated; F41.9 Anxiety disorder, unspecified; F32.9 Major depressive disorder, single episode, unspecified; F10.10 Alcohol abuse, uncomplicated; F41.1 Generalized anxiety disorder; B96.20 Unspecified Escherichia coli [E. coli] as the cause of diseases classified elsewhere; Y90.2 Blood alcohol level of 40-59 mg/100 ml; Z87.820 Personal history of traumatic brain injury; Z86.711 Personal history of pulmonary embolism; Z98.51 Tubal ligation status
CPT/HCPCS: 36430; 36600; 70450; 71010; 71020; 71045; 71275; 74177; 76856; 80048; 80053; 80074; 80076; 80307; 81001; 82103; 82105; 82140; 82390; 82728; 82805; 82948; 83520; 83540; 83550; 83605; 83735; 84100; 84132; 84133; 84155; 84484; 84702; 84703; 85014; 85018; 85025; 85027; 85384; 85610; 85730; 86038; 86255; 86850; 86900; 86901; 86920; 87070; 87077; 87086; 87186; 87205; 87328; 87329; 87493; 87641; 88305; 88312; 93005; 94060; 94150; 94618; 94640; 94664; 96360; J0330; J0610; J0696; J1100; J2060; J2250; J2370; J2405; J3010; J3480; J7030; J7050; J7613; P9016; Q9967

== ENCOUNTER 2017-10-04 21:10 | Emergency (ER) | payer MEDICAID ==
[~2017-10-04] VITALS: Ht 162.6 cm; Wt 110.0 kg
[~2017-10-04 21:10] MED LIST changes: +ALDA50TA2 PO; +CEFU1TAB18 PO; +LACTCHW3 CHEW; +OXYGENDME NAS.CANULA; +SYMB160A INH; +THIA100 PO; +VENTAER INH; -VIST50CA PO; +WALKER WHEELS/F1 MIS
[2017-10-04 21:38] VITALS: BP 194/117; PULSE 74; RESP 24; TEMP 98; O2SAT 98
[2017-10-04] MEDS ORDERED: KETOROLAC TROMETHAMINE 60 MG/2 ML (IM) VIAL IM ONE (23:00)
--- NOTE | 2017-10-04 23:08 | PD ---
HPI Chief Complaint: Chest Pain Time Seen by Provider: 21:57 Travel History International Travel<30 days: No Contact w/Intl Traveler<30days: No Traveled to known affect area: No History of Present Illness HPI Patient is a 27-year-old female with history of having pulmonary embolism in the past as well as having an encephalopathy with a craniotomy surgery. For the last day patient has had severe left under the breast tenderness to her ribs. Denies trauma denies vesicles denies cough denies shortness of breath area patient does have a history of pulmonary embolism her is insisting that he is worried she is having a recurrence of her pulmonary embolism is also worried that she could have a rebleed in her head which she had years ago. Patient is awake alert no signs of altered mental status no toxic and no sign of any distress. She is holding her left side underneath her breasts when I come in the room.. She has difficulty moving without pain to that left rib. Pt has not taken anything to alleviate pain and has not seen another MD for this complaint PFSH Past Medical History Asthma: No Anxiety: Yes Depression: Yes Cancer: No Cardiovascular Problems: No Chest Pain: Yes Cerebrovascular Accident: No Diabetes: Yes Patient Takes Glucophage: No Diminished Hearing: No Endocrine: No Genitourinary: No Headaches: Yes Hepatitis: No Hiatal Hernia: No Immune Disorder: No Implanted Vascular Access Dvce: Yes (PICC LINE AT ONE TIME IN LEFT ARM) Medical other: Yes Musculoskeletal: No Neurologic: Yes (migraines) Psychiatric: Yes (ANXIETY; PANIC ATTACKS; DOES NOT LIKE TO BE ALONE SINCE THE VEHICLE TRAUMA) Reproductive: No Respiratory: Yes (hx pulmonary embolism) Integumentary: Yes Immunizations Current: Yes Migraines: Yes Seizures: Yes Thyroid Disease: No ?: Not LMP: LAST MONTH : 2 Para: 2 Tubal Ligation: Yes Past Surgical History Abdominal Surgery: No AICD: No Body Medical Devices: prosthetic bone flap Cardiac Surgery: No Section: Yes Ear Surgery: No Endocrine Surgery: No Eye Surgery: No Gynecologic Surgery: Yes (c sections x 2) Joint Replacement: No Neurologic Surgery: Yes (5 brain surgeries) Oral Surgery: No Pacemaker: No Thoracic Surgery: No Other Surgery: Yes (CRANIOTOMY 2008/ PLATE REMOVED 2013) Social History Alcohol Use: Yes Tobacco Use: Yes (3/4 PPD) Substance Use: No Allergies-Medications (Allergen,Severity, Reaction): Coded Allergies: No Known Allergies (Unverified Adverse Reaction, Unknown, 10/04/17) Reported Meds & Prescriptions Reported Meds & Active Scripts Active Ibuprofen 600 Mg Tab 600 Mg PO Q6H PRN Review of Systems Except as stated in HPI: all other systems reviewed are Neg Physical Exam Narrative GENERAL: SKIN: Warm and dry. HEAD: Atraumatic. Normocephalic. EYES: Pupils equal and round. No scleral icterus. No injection or drainage. ENT: No nasal bleeding or discharge. Mucous membranes pink and moist. NECK: Trachea midline. No JVD. CARDIOVASCULAR: Regular rate and rhythm. RESPIRATORY: No accessory muscle use. Clear to auscultation. Breath sounds equal bilaterally. Tenderness to the left rib denise there is no vesicles there is no hematoma there is no bruise there is no subcutaneous air there is no step- off or tenderness with percussion of the ribs away from that area mostly in the left rib T4-7 GASTROINTESTINAL: Abdomen soft, non-tender, nondistended. Hepatic and splenic margins not palpable. MUSCULOSKELETAL: Extremities without clubbing, cyanosis, or edema. No obvious deformities. NEUROLOGICAL: Awake and alert. No obvious cranial nerve deficits. Motor grossly within normal limits. Five out of 5 muscle strength in the arms and legs. Normal speech. PSYCHIATRIC: Appropriate mood and affect; insight and judgment normal. Data Data Last Documented VS Vital Signs Date Time Temp Pulse Resp B/P (MAP) Pulse Ox O2 Delivery O2 Flow Rate FiO2 10/04/17 21:58 70 18 97 Room Air 10/04/17 21:38 98.0 194/117 (142) Orders Orders Electrocardiogram (10/04/17 ) Ketorolac Inj (Toradol Inj) (10/04/17 23:00) Ribs, Uni (W/Exp Cxr-Min 3vw) (10/04/17 ) Ct Pulmonary Angiogram (10/04/17 ) Ct Brain W/O Iv Contrast(Rout) (10/04/17 ) Complete Blood Count With Diff (10/04/17 23:45) Comprehensive Metabolic Panel (10/04/17 23:45) Iohexol 350 Inj (Omnipaque 350 Inj) (10/05/17 00:41) Ed Discharge Order (10/05/17 02:12) Labs Laboratory Tests Test 10/04/17 23:53 White Blood Count 9.2 TH/MM3 Red Blood Count 3.84 MIL/MM3 Hemoglobin 11.9 GM/DL Hematocrit 35.7 % Mean Corpuscular Volume 93.0 FL Mean Corpuscular Hemoglobin 31.1 PG Mean Corpuscular Hemoglobin Concent 33.5 % Red Cell Distribution Width 13.9 % Platelet Count 336 TH/MM3 Mean Platelet Volume 7.9 FL Neutrophils (%) (Auto) 68.8 % Lymphocytes (%) (Auto) 25.2 % Monocytes (%) (Auto) 5.2 % Eosinophils (%) (Auto) 0.5 % Basophils (%) (Auto) 0.3 % Neutrophils # (Auto) 6.3 TH/MM3 Lymphocytes # (Auto) 2.3 TH/MM3 Monocytes # (Auto) 0.5 TH/MM3 Eosinophils # (Auto) 0.1 TH/MM3 Basophils # (Auto) 0.0 TH/MM3 CBC Comment DIFF FINAL Differential Comment Blood Urea Nitrogen 2 MG/DL Creatinine 0.85 MG/DL Random Glucose 137 MG/DL Total Protein 7.6 GM/DL Albumin 3.3 GM/DL Calcium Level 8.6 MG/DL Alkaline Phosphatase 90 U/L Aspartate Amino Transf (AST/SGOT) 8 U/L Alanine Aminotransferase (ALT/SGPT) 11 U/L Total Bilirubin 0.4 MG/DL Sodium Level 141 MEQ/L Potassium Level 3.2 MEQ/L Chloride Level 103 MEQ/L Carbon Dioxide Level 29.5 MEQ/L Anion Gap 9 MEQ/L Estimat Glomerular Filtration Rate 80 ML/MIN MDM Medical Decision Making Medical Screen Exam Complete: Yes Emergency Medical Condition: Yes Differential Diagnosis Rib contusion costochondritis rib contusion pneumonia pulmonary embolism cardiac ischemia intercostal muscle strain other Narrative Course CT chest CT head are negative no pulmonary embolism no rib fractures no recurrence of any intracranial pathology patient is discharged follow-up as an outpatient Diagnosis Primary Impression: Rib pain on left side Patient Instructions: General Instructions, Rib Contusion (ED) Scripts Ibuprofen (Ibuprofen) 600 Mg Tab 600 MG PO Q6H Y for Pain/Inflammation, #20 TAB 0 Refills Prov: Romaine Osborn MD 10/05/17 Disposition: 01 DISCHARGE HOME Condition: Good Romaine Osborn MD Oct 04, 2017 23:08
--- NOTE | 2017-10-04 23:34 | RADRPT ---
EXAM DATE/TIME: 10/04/2017 23:15 [facility] COMPARISON: No previous studies available for comparison. INDICATIONS : Rib pain. MEDICAL HISTORY : Seizures. Diabetes, pulmonary embolism. Traumatic brain injury. Hypokalemia. SURGICAL HISTORY : Tubal ligation. Craniotomy. ENCOUNTER: Initial ACUITY: 1 day PAIN SCORE: 10/10 LOCATION: Left ribs, inferior. FINDINGS: Multiple views of the left ribs were performed. There is no evidence of displaced fracture. No dest ructive lesions or areas of periosteal thickening are seen. Expiratory view of the chest is negative for pneumothorax. The mediastinal structures are midline. CONCLUSION: Negative exam with no evidence of rib fracture. Anthony Bolton MD on October 04, 2017 at 23:31 Board Certified Radiologist. This report was verified electronically.
[2017-10-04 23:57] LABS: AUTOMATED NEUTROPHIL # 6.3 TH/MM3 (1.8-7.7); BASOPHIL % 0.3 % (0.0-2.0); EOSINOPHIL # 0.1 TH/MM3 (0-0.4); EOSINOPHIL % 0.5 % (0.0-4.0); HEMATOCRIT 35.7 % (35.0-46.0); HEMOGLOBIN 11.9 GM/DL (11.6-15.3); LYMPH % 25.2 % (9.0-44.0); LYMPHOCYTE # 2.3 TH/MM3 (1.0-4.8); MEAN CORPUSCULAR HEMOGLOBIN 31.1 PG (27.0-34.0); MEAN CORPUSCULAR HGB CONC 33.5 % (32.0-36.0); MEAN PLATELET VOLUME 7.9 FL (7.0-11.0); MONO % 5.2 % (0.0-8.0); MONOCYTE # 0.5 TH/MM3 (0-0.9); NEUT % 68.8 % (16.0-70.0); PLATELET COUNT 336 TH/MM3 (150-450); RED BLOOD COUNT 3.84 MIL/MM3 (4.00-5.30); RED CELL DISTRIBUTION WIDTH 13.9 % (11.6-17.2); WHITE BLOOD COUNT 9.2 TH/MM3 (4.0-11.0)
[2017-10-05 00:17] LABS: ALBUMIN 3.3 GM/DL (3.4-5.0); ALT (GPT) 11 U/L (10-53); AST (GOT) 8 U/L (15-37); BICARBONATE 29.5 MEQ/L (21.0-32.0); BLOOD UREA NITROGEN 2 MG/DL (7-18); CALCIUM 8.6 MG/DL (8.5-10.1); CHLORIDE 103 MEQ/L (98-107); CREATININE 0.85 MG/DL (0.50-1.00); GLOMERULAR FILTRATION RATE 80 ML/MIN (>89); GLUCOSE,RANDOM 137 MG/DL (74-106); SODIUM (NA) 141 MEQ/L (136-145)
[2017-10-05 00:20] LABS: ALKALINE PHOSPHATASE 90 U/L (45-117); TOTAL BILIRUBIN ADULT 0.4 MG/DL (0.2-1.0); TOTAL PROTEIN 7.6 GM/DL (6.4-8.2)
[2017-10-05] MEDS ORDERED: IOHEXOL 350 MG/ML 10 ML VIAL (for RAD DIAG) IVCONTRAST ONE (00:41)
--- NOTE | 2017-10-05 00:49 | RADRPT ---
EXAM DATE/TIME: 10/05/2017 00:29 [facility] COMPARISON: CT BRAIN W/O CONTRAST, July 11, 2017, 14:24. INDICATIONS : Cephalgia. Known prior infarcts. RADIATION DOSE: 56.77 CTDIvol (mGy) MEDICAL HISTORY : Seizures. SURGICAL HISTORY : Craniotomy. ENCOUNTER: Initial ACUITY: 1 day PAIN SCALE: 5/10 LOCATION: cranial TECHNIQUE: Multiple contiguous axial images were obtained of the head. Using automated exposure control and adj ustment of the mA and/or kV according to patient size, radiation dose was kept as low as reasonably a chievable to obtain optimal diagnostic quality images. DICOM format image data is available electro nically for review and comparison. FINDINGS: Postsurgical changes are again noted status post left frontal and parietal craniotomy. There are stable areas of encephalomalacia again noted involving the left temporal, parietal and occipital lob es. There is no acute hemorrhage, mass effect or midline shift. The ventricular system remains within normal limits. The posterior fossa and brainstem are intact. There is no hemorrhage or mass. CONCLUSION: 1. No acute hemorrhage, mass or evidence of infarction. 2. Stable areas of encephalomalacia involving the left temporal, parietal and occipital lobes. 3. Stable postsurgical changes status post left sided craniotomy. Anthony Bolton MD on October 05, 2017 at 0:43 Board Certified Radiologist. This report was verified electronically.
--- NOTE | 2017-10-05 00:51 | RADRPT ---
EXAM DATE/TIME: 10/05/2017 00:31 [facility] COMPARISON: CT PULMONARY ANGIOGRAM, July 14, 2017, 9:34. INDICATIONS : Chest pain, prior pulmonary emoblisms. IV CONTRAST: 65 cc Omnipaque 350 (iohexol) IV RADIATION DOSE: 10.81 CTDIvol (mGy) MEDICAL HISTORY : None SURGICAL HISTORY : Tubal ligation. ENCOUNTER: Initial ACUITY: 1 day PAIN SCALE: 8/10 LOCATION: chest TECHNIQUE: Volumetric scanning of the chest was performed using a pulmonary embolism protocol MIP images were re constructed. Using automated exposure control and adjustment of the mA and/or kV according to patien t size, radiation dose was kept as low as reasonably achievable to obtain optimal diagnostic quality images. DICOM format image data is available electronically for review and comparison. Follow-up recommendations for detected pulmonary nodules are based at a minimum on nodule size and pa tient risk factors according to Fleischner Society Guidelines. FINDINGS: PULMONARY ARTERIES: No filling defects are seen in the pulmonary arteries through the segmental level. LUNGS: There is no consolidation or pneumothorax . There are patchy areas of atelectasis in the dependent po rtions of the posterior lungs. No concerning pulmonary nodule is visualized. PLEURAE: There is no pleural thickening or pleural effusion. MEDIASTINUM: There is good visualization of the great vessels of the middle mediastinum. No evidence of mediastin al or hilar adenopathy/mass. MUSCULOSKELETAL: Within normal limits for patient age. MISCELLANEOUS: The visualized upper abdominal organs demonstrate no acute abnormality. CONCLUSION: 1. No evidence of pulmonary embolism. 2. Atelectasis in the dependent portions of the lungs. Anthony Bolton MD on October 05, 2017 at 0:46 Board Certified Radiologist. This report was verified electronically.
[2017-10-05] MEDS ORDERED: IBUP-232 PO (02:11)
--- NOTE | 2017-10-05 19:53 | EKG ---
Date Performed: 10/04/2017 Time Performed: 21:37:26 PTAGE: 27 years EKG: Sinus rhythm WITH MARKED SINUS ARRHYTHMIA POSSIBLE LEFT ATRIAL ENLARGEMENT Since previous tracing, no significant change noted BORDERLINE ECG PREVIOUS TRACING : 07/11/2017 13.09 DOCTOR: Jovan Mcnulty Interpretating Date/Time 10/05/2017 19:50:17
== END 2017-10-05 02:23 | disposition home or self-care (01) ==
LOC: NEPC 21:10
DX: R07.81 Pleurodynia (principal); F17.200 Nicotine dependence, unspecified, uncomplicated; Z86.711 Personal history of pulmonary embolism
CPT/HCPCS: 70450; 71101; 71275; 80053; 85025; 93005; 96372; 99285; J1885; Q9967